=== PATIENT | male | born 1940 | race Caucasian/White ===

== ENCOUNTER → 2021-03-31 14:59 | Outpatient (CLI) | payer OTHER, SELFPAY ==
[2021-03-31 16:07] LABS: Add Manual Diff / Slide Review NO; Basophils Absolute Auto 100 /uL (0-100); Basophils Percent Auto 0.8 % (0-2); Eosinophils Absolute Auto 200 /uL (0-450); Eosinophils Percent Auto 3.1 % (2-4); Hematocrit 45.5 % (41-53); Hemoglobin 15.2 g/dL (13.5-17.5); Lymphocytes Absolute Auto 1500 /uL (1100-4500); Lymphocytes Percent Auto 22.7 % (25-40); Mean Corpuscular HGB Conc 33.3 % (30-36); Mean Corpuscular Hemoglobin 31.6 PG (26-34); Mean Corpuscular Volume 94.9 fL (80-100); Monocytes Absolute Auto 700 /uL (0-900); Monocytes Percent Auto 10.1 % (3-14); Neutrophils Absolute Auto 4100 /uL (1500-7000); Neutrophils Percent Auto 63.3 % (50-75); Platelet Count 149 X10^3/uL (150-400); Red Cell Distribution Width 15.3 % (11.6-14.8); White Blood Cell Count 6.5 X10^3/uL (4.5-11.0)
[2021-03-31 16:11] LABS: INR 1.9 (0.9-1.3); Prothrombin Time 21.3 SECONDS (10.1-12.7)
[2021-03-31 16:13] LABS: PTT Partial Thromboplastin Tim 48 SECONDS (26.4-36.2)
[2021-03-31 16:20] LABS: BUN Creatinine Ratio 15.4 (6-22); Blood Urea Nitrogen 20 mg/dL (9-20); Calcium 8.7 mg/dL (8.4-10.2); Carbon Dioxide 24 mmol/L (22-32); Chloride 109 mmol/L (98-107); Estimated Glomerular Filt Rate 53.4 mL/min (>60); Glucose 93 mg/dL (80-110); HEMOLYSIS < 15 (0-50); Potassium 4.3 mmol/L (3.4-5.1); Sodium 141 mmol/L (137-145)
[2021-03-31 16:21] LABS: Hemoglobin A1C% w Est Avg Glu 5.7 % (4.0-6.0)
[2021-03-31 18:32] LABS: Appearance Urine UA SL CLOUDY; Bilirubin Urine UA NEGATIVE (NEGATIVE); Color Urine UA YELLOW; Glucose Urine UA NEGATIVE (Negative); Ketones Urine UA NEGATIVE (NEGATIVE); Leukocyte Esterase Urine UA 2+ (NEGATIVE); Nitrite Urine UA NEGATIVE (Negative); Occult Blood Urine UA 1+ (Negative); Protein Urine UA TRACE (Negative); Urobilinogen Urine UA 0.2 E.U./dL (0.2)
[2021-03-31 18:47] LABS: Bacteria Urine Few (2-10); Culture Indicated Urine Specimen Cultured; Mucus Urine 2+ (Negative); RBC Urine 0-1/HPF (0-5/HPF); Squamous Epithelial Cell Urine 1-5 /HPF (0-5/HPF); Transitional Epi Cells Urine 5-10/HPF (0-5/HPF); WBC Urine 10-30/HPF (0-5/HPF)
== END ==
PROVIDERS: PCP Internal Medicine; Referring Provider Orthopaedic Surgery; Visit Provider Orthopaedic Surgery
DX: Z01.818 Encounter for other preprocedural examination (principal); I10 Essential (primary) hypertension; Z51.81 Encounter for therapeutic drug level monitoring; R73.9 Hyperglycemia, unspecified; Z01.812 Encounter for preprocedural laboratory examination; N39.0 Urinary tract infection, site not specified
CPT/HCPCS: 36415; 80048; 81001; 83036; 85025; 85610; 85730; 87077; 87086; 87147; 93005

== ENCOUNTER → 2021-04-23 09:38 | Outpatient (CLI) | payer OTHER, SELFPAY ==
[2021-04-23 11:19] LABS: Alanine Aminotransferase 15 IU/L (<50); Albumin 3.8 g/dL (3.5-5.0); Albumin Globulin Ratio 1.4 (1.0-2.8); Alkaline Phosphatase 80 U/L (38-126); Aspartate Aminotransferase 21 IU/L (17-59); BUN Creatinine Ratio 11.3 (6-22); Bilirubin Total 0.6 mg/dL (0.2-1.3); Blood Urea Nitrogen 16 mg/dL (9-20); Calcium 8.5 mg/dL (8.4-10.2); Carbon Dioxide 27 mmol/L (22-32); Chloride 108 mmol/L (98-107); Estimated Glomerular Filt Rate 48.2 mL/min (>60); Globulin 2.7 g/dL (1.7-4.1); Glucose 102 mg/dL (80-110); HEMOLYSIS < 15 (0-50); Magnesium 2.2 mg/dL (1.6-2.3); Sodium 140 mmol/L (137-145); Total Protein 6.5 g/dL (6.3-8.2)
[2021-04-23 11:25] LABS: Potassium 4.4 mmol/L (3.4-5.1)
[2021-04-25 12:36] LABS: Cholesterol, Total 114 mg/dL (100-199); HDL-Cholesterol 45 mg/dL (>39); HDL-Particle (Total) 28.1 umol/L (>=30.5); LDL Particle 813 nmol/L (<1000); LDL Size 20.5 nm (>20.5); LDL-Cholsterol 55 mg/dL (0-99); LP-IR Score 50 (<=45); Small LDL- Particle 439 nmol/L (<=527); Triglycerides 64 mg/dL (0-149)
== END ==
PROVIDERS: PCP Internal Medicine; Visit Provider Specialist
DX: E78.2 Mixed hyperlipidemia (principal); I48.19 Other persistent atrial fibrillation
CPT/HCPCS: 36415; 80053; 80061; 83704; 83735

== ENCOUNTER → 2021-06-11 08:59 | Outpatient (CLI) | payer OTHER, MEDICAID, SELFPAY ==
[2021-06-11 11:22] LABS: COVID19 -Nasal RAPID Negative (Negative)
--- NOTE | 2021-06-11 18:22 | DI.NM.S_ITS ---
DATE OF SERVICE: 06/11/2021 PROCEDURE PERFORMED: Pharmacological perfusion study. INDICATIONS: Preop evaluation with underlying AFib, CAD, diabetes mellitus, hypertension. RADIOPHARMACEUTICAL: 24.8 millicurie technetium-99m Myoview IV was injected at stress and 12.0 millicurie technetium-99m Myoview IV was injected at rest. CARDIAC STRESS: The patient underwent IV Lexiscan perfusion study under the supervision of an attending staff, as per standard protocol. He remained hemodynamically stable. Baseline blood pressure was 122/70 and heart rate 66 with underlying rhythm AFib with right bundle branch block. During stress, no convincing new ischemic changes seen. The patient remained in AFib and right bundle branch block. No significant new arrhythmias, other than occasional PVCs. No anginal symptoms. RAW DATA: There is increased subdiaphragmatic activity. Gut shadow seen near the inferior border of the heart. The patient's weight is 251 pounds. GATED STUDY: Resting LV ejection fraction is 55 percent and stress LV ejection fraction is 57 percent without any significant wall motion abnormalities. Resting end-diastolic volume 155 mL. TID ratio 1.03, which is within normal limits. Lung/heart ratio 0.38, which is within normal limits. MYOCARDIAL PERFUSION: Please note, there are no stress prone images. Stress supine and resting supine images were compared to each other. There appears to be predominantly fixed, moderate size, moderate to severely decreased perfusion of inferior wall extending into the inferoapex, as well as basal inferolateral wall without any significant ischemic burden. CONCLUSION: 1. No obvious reversible ischemia. 2. Predominantly fixed, moderate size, moderate to severely decreased perfusion of inferior wall extending into the inferoapex, as well as basal inferolateral wall. There are no stress prone images. In absence of prone images, it is difficult to distinguish myocardial infarction versus tissue attenuation artifact. However, the patient's weight is 251 pounds. There is increased subdiaphragmatic activity, as well as gut shadow seen near the inferior border of the heart. Inferior wall is moving well. It goes against the diagnosis of previous transmural myocardial infarction. This could be due to diaphragmatic tissue attenuation artifact however one cannot rule out the possibility of nontransmural myocardial infarction. In absence of reversible ischemia, preserved left ventricular function, overall low-risk myocardial perfusion scan. Correlate clinically. John Damico - 3D MODELER/fn/clara doc#: [id number]/job#: [id number] dd: 06/11/2021 17:26:00 dt: 06/11/2021 18:12:00 DICTATING MD/COPIES TO: Bon Lemus MD COPIES MNE: FABIAN;
== END ==
PROVIDERS: PCP Internal Medicine; Referring Provider Physician Assistant Medical; Visit Provider Specialist
DX: I25.10 Atherosclerotic heart disease of native coronary artery without angina pectoris (principal); Z20.822 Contact with and (suspected) exposure to COVID-19; I48.91 Unspecified atrial fibrillation; E11.9 Type 2 diabetes mellitus without complications; I10 Essential (primary) hypertension
CPT/HCPCS: 78452; 87635; 93017; A9502; J2785

== ENCOUNTER → 2021-07-21 10:45 | Outpatient (CLI) | payer OTHER, SELFPAY ==
[2021-07-21 14:48] LABS: COVID19 -Nasal RAPID Negative (Negative)
== END ==
PROVIDERS: PCP Internal Medicine; Referring Provider Physician Assistant; Visit Provider Physician Assistant
DX: Z01.812 Encounter for preprocedural laboratory examination (principal); Z20.822 Contact with and (suspected) exposure to COVID-19
CPT/HCPCS: 87635

== ENCOUNTER 2021-07-24 08:39 | Observation (INO) | payer OTHER, MEDICAID, SELFPAY ==
[2021-07-18 10:47] VITALS: BMI 34.9
[2021-07-22] VITALS (22 sets, daily range): BP systolic 84–159; BP diastolic 52–99; PULSE 79–107; RESP 14–19; TEMP 36.1–37.1; O2SAT 19–99; BMI 31.6
[2021-07-22] MEDS: LACTATED RINGERS 1,000 ML 42 ML IV ×2 (07:15→08:43)
--- NOTE | 2021-07-22 07:33 | DI.RAD.S_ITS ---
PROCEDURE: XR HIP W PEL IF DONE RT 2V INDICATIONS: right total hip postop prosthesis placement TECHNIQUE: AP pelvis and lateral view of the right hip acquired. COMPARISON: None. FINDINGS: Bones: Patient is status post right hip arthroplasty, with hardware components in expected positions. The hip joint appears congruent. The visualized bony structures appear intact. Soft tissues: Overlying postoperative changes are noted. No suspicious soft tissue densities. IMPRESSION: Postop changes from right total hip arthroplasty with anatomic right hip alignment. Dictated by: Leo Miranda M.D. on 07/22/2021 at 11:39 Approved by: Leo Miranda M.D. on 07/22/2021 at 11:39
[2021-07-22] MEDS: PREGABALIN 75 MG CAPSULE PO (07:42)
[2021-07-22] MEDS: CELECOXIB 200 MG CAPSULE PO (07:42)
[2021-07-22] MEDS: ACETAMINOPHEN 325 MG TABLET 975 MG PO (07:43)
--- NOTE | 2021-07-22 07:48 | PM.PREOP ---
Pre-operative Note COVID-19 COVID-19 status: Negative Interval Note History & Physical reviewed/Exam performed by Physician: Yes Changes to H&P: No
--- NOTE | 2021-07-22 07:49 | PM.OP.1 ---
Operative Date/Time/Diagnoses Date of procedure: 07/22/21 Time of procedure: 08:00 Pre-op diagnosis: right hip OA Post-op diagnosis: same Procedure & Clinicians Procedure: right total hip arthroplasty posterior approach Same procedure as scheduled: Yes Indications: The patient has had progressively worsening right hip pain with radiographic changes consistent with arthritis. Non-operative management has failed and the patient has requested total hip replacement. The risks, benefits and alternatives to surgery were discussed with the patient prior to proceeding. Risks discussed included, but were not limited to, failure to relieve pain, leg length discrepancy, dislocation, stiffness, infection, nerve damage, deep venous thrombosis, pulmonary embolism, stroke, coma, heart attack, permanent paralysis and , as well as the potential need for eventual revision of the prosthetic. Surgeon: Janette Sotelo Taxi Proprietor: Divya Hull Anesthesia Type: General Operative Notes Findings: Severe right hip osteoarthritis, good stability, adequate bone Closure Type: primary Specimen(s): none sent Prosthetic devices, grafts, tissues, transplants, or devices: Sotelo and Nephew 60 mm R3 cup, +0 40 mm head, size 13 standard offset anthology, neutral poly liner Applied: drain(s) Estimated Blood Loss (mL): 250 Blood products transfused: none Procedure in detail: The patient was seen in the pre-operative area, where the patient identified the right hip as the operative site and this was marked with my initials. The patient received pre-operative antibiotics and was taken to the operating room and placed on the operative table in the left lateral decubitus position after satisfactory anesthesia. A multimedia authoring specialist out was performed. The right leg was prepared from the ankle to the iliac crest with ChloroPrep in the usual fashion and draped through sterile drapes. The hip was approached through an approximately 20 cm incision centered over the greater trochanter and curving gently posteriorly as it went proximally. This was carried sharply to the fascia griselda, which was divided and retracted with a self retaining retractor. The trochanteric bursa was excised with care being taken to avoid the sciatic nerve, which was identified and protected throughout the case. The short external rotators were incised and the capsulomuscular flap was raised and tagged for later repair. The hip was dislocated, and a femoral neck osteotomy performed approximately 15 mm above the lesser trochanter. Retractors were placed around the femur. The canal was opened with a box cutting osteotome, followed by a T handled reamer and a lateralizing reamer. The chili pepper broach was then used, followed by sequential broaching until there was good stability of the broach in the femur. Retractors were placed to expose the acetabulum. The labrum and central soft tissues were removed. Reaming was performed initially going up in 2 mm increments, then 1 mm increments until good bite was obtained with an odd sized reamer. The cup 1 mm larger than the last reamer was then inserted using the appropriate anteversion guides. It was further stabilized with a single screw. A trial neutral liner was placed. The broach was placed in the canal. A trial head and neck were then placed and the hip relocated and checked for leg length and stability. An intraoperative film confirmed the component position and no evidence of fracture. The patient was stable in the position of sleep, of squatting, and could be put through a range of motion with 45 degrees internal rotation without dislocation. At 90 degrees flexion, internal rotation to 70 ? was possible before dislocation. This was felt to be satisfactory and the appropriate components were opened, and the trials were removed. The acetabular liner was impacted into position. The final stem was then impacted into the prepared femoral canal. A brief Betadine soak was performed while trialing with head options. The hip was meticulously irrigated with normal saline. Finally the femoral head was impacted onto the stem. The acetabulum was cleared of all material and the hip relocated one final time. The capsulomuscular flap was then repaired to the greater trochanter though an awl hole using the tag sutures. The short external rotators were repaired with a nonabsorbable suture. A deep drain was placed and brought out anteriorly. The fascia griselda was closed with Vicryl. The subcutaneous layer was closed with barbed sutures and SteriStrips. An Aquacel Ag dressing was applied and the patient was taken to recovery having tolerated the procedure well. Complications: none Post-operative Condition: stable Disposition: Acute Care Plan for aftercare: The patient will be maintained on a standard total hip replacement protocol with weight bearing as tolerated and posterior hip precautions. The patient will receive Aspirin and sequential compression devices for DVT prophylaxis. The patient will be discharged home when safe for the home environment.
[2021-07-22] MEDS: VANCOMYCIN 1,000 MG/200 ML PIGGYBACK 200 MG IV (07:51)
[2021-07-22] MEDS: TRANEXAMIC ACID 1,000 MG VIAL 1000 MG INJ ×2 (07:55→09:56)
[2021-07-22] MEDS: CEFAZOLIN 1 GM VIAL 2 GM IV ×3 (07:59→23:34)
--- NOTE | 2021-07-22 08:02 | SUR.PREOP ---
[facility] 0740.
--- NOTE | 2021-07-22 08:30 | SUR.OPER ---
Lateral on padded OR bed. Gel axillary roll. Arms secured on padded armboard with pillow supporting top arm. Padded hip positioner braces x4 - anterior and posterior chest and pelvis. Additional gel pad used anterior pelvis. Gel pad under bottom leg from knee to foot and secured with tape over sheet.
[2021-07-22] MEDS: BUPIVACAINE LIPOSOME 266 MG/20 ML VIAL INJ (08:41)
[2021-07-22] MEDS: BUPIVACAINE 0.25% (PF) 60 ML, EPINEPHrine 0.3 MG INJ (08:42)
--- NOTE | 2021-07-22 10:00 | DI.RAD.S_ITS ---
PROCEDURE: XR PELVIS 1-2V INDICATIONS: INNER OP RT HIP TECHNIQUE: Intra-operative view of the pelvis and hip acquired. COMPARISON: [facility] [place], CR, XR PELVIS WITH BILATERAL LATERAL HIPS, 03/31/2021, 13:31. FINDINGS: Bones: Intraoperative devices prior to placement of arthroplasty prostheses are in expected positions. No fractures or suspicious bony lesions. Soft tissues: Overlying surgical retractors are present, along with other intraoperative changes. IMPRESSION: Expected appearance and alignment of intraoperative prosthetic devices during placement of right hip arthroplasty. Dictated by: Vitaliy Catherine RRA Interpreted: Jana Blum MD on 07/22/2021 at 9:56 Transcribed by: TONYA on 07/22/2021 at 9:57 Approved by: Jana Blum MD, PhD on 07/22/2021 at 10:02
[2021-07-22] MEDS: fentaNYL 100 MCG/2 ML INJ IV ×2 (10:51→11:28)
--- NOTE | 2021-07-22 11:21 | SUR.PHASEI ---
1120-patient had tylenol this am preop. c/o pain rt hip. Spoke with Natalya CAICEDO , new orders placed for po pain medication .
[2021-07-22] MEDS: OXYCODONE IR 5 MG TABLET PO (11:24)
--- NOTE | 2021-07-22 12:13 | SUR.PHASEI ---
PACU 1158*Patient awake,alert,and oriented x 3. vss. meets criteria for transfer to floor. Report called to RN. no nausea. pain down and more toelerable-dozes prn. ice rt hip maintained. vss. ekg AF-patient has history. on 2 lnc oxygen. sats 97-99. Csm RLE wnl,no deficits. Dressing cdi at rt hip,and hemovac drain dressing cdi rt hip, scant drainage in tubing only. to floor with belongings bags,walker,shoes, and personal rolling suitcase to room with patient. no family present. 1200-to room by bed on 2 lnc w/belongings. 1208-Bedside Handoff with Shaila FRASER . side rails up. bed in low position. call light at side. bed locked.
[2021-07-22] MEDS: LACTATED RINGERS 1,000 ML 125 ML IV ×2 (12:17→21:25)
[2021-07-22] MEDS: BACLOFEN 10 MG TABLET PO (12:38)
[2021-07-22] MEDS: ALBUTEROL 2.5 MG/3 ML NEB (ADULT) INH ×3 (13:53→19:04)
[2021-07-22] MEDS: ACETAMINOPHEN 325 MG TABLET 650 MG PO ×2 (14:36→21:11)
[2021-07-22] MEDS: OXYCODONE IR 5 MG TABLET 10 MG PO (14:36)
--- NOTE | 2021-07-22 15:15 | PT.IIE ---
Current Diagnoses Unilateral primary osteoarthritis, right hip (07/22/21) Surgery Performed Operation Date: 07/22/21 07:45 Actual Procedures p Total Hip Arthroplasty(Right) - Janette Sotelo MD Medical History (Last Updated 07/18/21 @ 10:45 by Jayla Patel RN) Afib CAD (coronary artery disease) CHF (congestive heart failure) COPD (chronic obstructive pulmonary disease) Current every day smoker HLD (hyperlipidemia) HTN (hypertension) MICHAELA on CPAP Osteoarthritis Pedal edema PVC's (premature ventricular contractions) RBBB (right bundle branch block) Physical Therapy Inpatient Evaluation/Re-Eval M1 PT/OT-IP Prior Functional Status Start: 07/22/21 16:44 Freq: NEEDED Status: Active Protocol: Document 07/22/21 15:15 AB (Rec: 07/22/21 17:01 AB [email or web address]) Medical Review Prior Functional Status Medical History Reviewed Yes Communication able to make needs known but with confusion Mobility and Gait pt stated that he is modified independent with all mobilities and ambulation using SPC indoors and 4WW for outdoor mobility but occasionally uses a FWW Social History Household Members family Living Arrangements Mobile home Number of Floors (Floors) One Floor Number of Stairs To Enter/Railing? 5 steps R rail to enter Home Environment Standard Height Toilet,Tub/ Shower Home Equipment Front Wheel Walker,Four Wheel Walker,Straight Cane,Shower Seat with Backrest,Hand Held Shower,Hospital Bed,Grab Bars Near Toilet,Grab Bars In Shower Additional Social History Comment pt stated that he lives with his sister and nephew but neither one can assist him: sister has also bad hips and nephew is developementally delayed M2 PT-IP Current Condition Start: 07/22/21 16:44 Freq: NEEDED Status: Active Protocol: Document 07/22/21 15:15 AB (Rec: 07/22/21 17:01 AB [email or web address]) Physical Therapy Current Condition Current Condition Evaluation Date 07/22/21 Treatment Diagnosis s/p R REBEKAH posterior approach; difficulty in walking Onset Date 07/22/21 M3 PT-IP Subjective Start: 07/22/21 16:44 Freq: NEEDED Status: Active Protocol: Document 07/22/21 15:15 AB (Rec: 07/22/21 17:01 AB [email or web address]) Subjective Physical Therapy Visit Type Type Initial Evaluation Visit Start Time 15:15 Visit Stop Time 16:01 Total Visit Minutes 46 Number of PRODUCT CONSULTANT Visits 0 Physical Therapy Visit Comments Patient Comments initially refuse to get up but then agreed afterwards Therapy Pain Assessment Pain When Pain Assessed During Mobility Pain Present Pain Present Pain Reported Location right hip Scale Used moderate pain per pt Pain Behaviors Calling Out,Guarding Pain Management Techniques Distraction,Modification of Treatment,Timing of Activity with Medications M4 PT-IP Mobility and Gait Start: 07/22/21 16:44 Freq: NEEDED Status: Active Protocol: Document 07/22/21 15:15 AB (Rec: 07/22/21 17:01 AB [id number]) PT-Bed Mobility Assessment Supine to Sit Supine to Sit Moderate Assistance,Head of Bed Elevated,Bedrails Sit to Supine Sit to Supine Moderate Assistance,Head of Bed Elevated,Bedrails PT-Transfer Assessment Sit to and From Stand Sit to and from Stand Moderate Assistance,Maximum Assistance,1 Person Assistance ,Use of Upper Extremities Equipment Transfer Assistive Device Gait Belt,Front Wheeled Walker Orthotic/Prosthetic Devices or Brace: No Comments Mobility Comments educated pt on R hip posterior precautions. pt with confusion and unable to recall his precautions. pt completed supine to sit mod A and max cues with HOB elevated and pt used bed rail. pt was able to sit on EOB CGA. completed sit to standmod to max A and max cues. pt is impulsive and cued for safety. pt calling out due to pain with weight bearing on RLE but was able to take side steps towards HOB ~ 2 ft using FWW max A and max cues. completed sit to supine mod to max A and max cues. positioned in bed. call light and table placed within reach. pt stated that her sister/ nephew will not be able to assist him at home and that he also does not have outpt PT scheduled. Gait Assessment Gait Gait Assistance Required: Maximum Assistance,1 Person Assist Distance (Feet) 2 Able to Maintain Weight Bearing Status Yes During Gait Assistive Devices Assistive Device Gait Belt,Front Wheeled Walker Orthotic/Prosthetic Devices or Brace: No Gait Deviations General Gait Pattern Decreased Stride Length, Decreased Feet Clearance Factors Limiting Gait Function Factors Limiting Gait Function Decreased Activity Tolerance, Decreased Strength,Difficulty Following Directions,Limited Range of Motion,Pain,Poor Balance,Poor Safety Awareness Comments Gait Comments pls refer to mobility section for details PT-Balance Assessment Sitting Balance and Reactions Static Sitting Balance Ability Good Dynamic Sitting Balance Ability Fair Standing Balance and Reactions Static Standing Balance Ability Poor Dynamic Standing Balance Ability Poor Device Used FWW M5 PT-IP Objective Assessments Start: 07/22/21 16:44 Freq: NEEDED Status: Active Protocol: Document 07/22/21 15:15 AB (Rec: 07/22/21 17:01 AB [email or web address]) Orientation Orientation/Cognition Level of Alertness Confusional State Orientation Name Safety Awareness Decreased Safety Awareness Memory Description Short Term Impaired Gross Range of Motion Lower Extremity ROM Assessment Within Functional Limits Strength Lower Extremity Strength Assessment Right Impaired Hip 3-/5 Knee 3+/5 Muscle Tone Muscle Tone WNL Yes M6 PT-IP Treatment Start: 07/22/21 16:44 Freq: NEEDED Status: Active Protocol: Document 07/22/21 15:15 AB (Rec: 07/22/21 17:01 AB [email or web address]) Physical Therapy Treatment Education Education Provided Precautions,Weight Bearing Status,Post-Op Packet,Safety M7 PT-IP Assessment and Plan Start: 07/22/21 16:44 Freq: NEEDED Status: Active Protocol: Document 07/22/21 15:15 AB (Rec: 07/22/21 17:01 AB [id number]) PT Summary Assessment and Plan Potential Rehabilitation Potential Fair Status of Condition at Evaluation Evolving Summary Impairments Pain,ROM,Strength,Balance, Coordination,Sensation,Tone, Cognition,Bed Mobility, Transfers,Gait,Activity Tolerance Assessment Summary pt s/o R REBEKAH posterior approach POD 0. pt is impulsive with decrease safety awareness and unable to recall safety precautions. pt requiring max A with mobility at this time and will not have available assistance since family members have their own medical issues and will not be able to assist pt. pt will need SNF rehab to improve mobility independence. Goals Bed Mobility Goal Standby Assistance Transfer Goal Standby Assistance,Front Wheeled Walker Gait Goal Standby Assistance,Front Wheel Walker Gait Distance 150 Other Goals up/down 5 steps R rail SBA Days to Meet Goals 5 Frequency of Treatment Frequency Of Treatment Twice a Day Treatment Plan Physical Therapy Treatment Plan Bed Mobility Training,Transfer Training,Gait Training, Therapeutic Exercise,Balance Retraining,Post Op Education, Discharge Planning,Hot or Cold Pack,Neuromuscular Re-ed, Coordination Retraining,Manual Therapy Precautions Posterior Hip Precautions No Hip Flexion > 90 degrees,No Hip Internal Rotation,No Hip Adduction Weight Bearing Status Weight Bearing Status Weight Bear as Tolerated Allowed Weight Bearing Amount (enter % RLE WBAT or #) (%) Recommendations To Nursing Amount of Assist Needed 2 Person Assist Discharge Recommendations PT Discharge Recommendations SNF Rehab Transportation Needs at Discharge Private Vehicle,Wheelchair/ Cabulance
--- NOTE | 2021-07-22 16:27 | PC.NURSE ---
1230-Patient alert, oriented rates pain 7/10 to right hip, described as burning. Given 10mg oxycodone along with jello and coffee. At 1500 patient up with physical therapy, stood at edge of bed and took some steps. Patient refused to sit in chair at this time. Patient also denies need to void. Last void at 0715 this morning. Bladder scanned at 1630 for 212cc. IVF infusing as ordered. Sats on RA while asleep 88%, placed on 1L O2 sats 96-96%.
[2021-07-22] MEDS: WARFARIN 2 MG TABLET 6 MG PO (16:43)
[2021-07-22] MEDS: SODIUM CHLORIDE 0.9% FLUSH 10 ML IV ×2 (16:44→21:13)
[2021-07-22] MEDS: NICOTINE 21 MG PATCH TOP (18:20)
[2021-07-22] MEDS: BUDESONIDE 0.5 MG/2 ML NEB INH (19:03)
[2021-07-22] MEDS: ASPIRIN EC 81 MG TABLET PO (21:11)
[2021-07-22] MEDS: ATORVASTATIN 20 MG TABLET 10 MG PO (21:12)
[2021-07-22] MEDS: DOCUSATE 100 MG CAPSULE PO (21:12)
[2021-07-22] MEDS: GABAPENTIN 300 MG CAPSULE PO (21:12)
[2021-07-22] MEDS: METOPROLOL IR 25 MG TABLET PO (21:12)
[2021-07-22] MEDS: LATANOPROST 0.005% OPHTH 2.5 ML 1 DROPS EYE-BOTH (21:26)
--- NOTE | 2021-07-22 23:45 | PC.NURSE ---
Patient is alert and oriented. Breath sounds with audible expiratory wheezes as well as auscultated with expiratory wheezes throughout; RA sat is 94%. HR irregular but does have hx of afib and rate is controlled. Denied nausea. BT present and is passing flatus. Voided using urinal; urine is dark ellie. Is able to turn himself in bed. Not out of bed so gait not assessed but evening RN reported he was up to BSC earlier with walker and 1 assist. Aquacel dressing to right hip is CDI; hemovac is intact and compressed. Denied pain. CMS intact bilaterally and able to lift leg well off bed. Wearing bilateral calf SCD's. Fall risk score is high and bed alarm is activated.
[2021-07-23] VITALS (10 sets, daily range): BP systolic 81–119; BP diastolic 55–66; PULSE 60–82; RESP 18–20; TEMP 36.4–37.3; O2SAT 95–99
[2021-07-23] MEDS: LACTATED RINGERS 1,000 ML 125 ML IV (05:42)
[2021-07-23] MEDS: OXYCODONE IR 5 MG TABLET PO (06:35)
[2021-07-23 07:17] LABS: Hematocrit 38.8 % (41-53); Hemoglobin 12.9 g/dL (13.5-17.5)
--- NOTE | 2021-07-23 07:48 | PM.DS.1 ---
History of Present Illness History of Present Illness Date Patient Seen: 07/23/21 Time Patient Seen: 07:48 Chief complaint: Hip pain Narrative: Patient's pain is 4/10. No fever or chills. No nausea or vomiting. Discharge Providers Provider Discharge Date: 07/23/21 Primary care physician: Jp Begum MD Consults: 07/22/21 07:33 Consult to Anesthesiology Routine Comment: Consulting Provider: Anesthesiologist Reason for consultation: Regional block for post operative pain control 07/22/21 07:56 Consult to Respiratory Therapy Evaluate & Treat Comment: Physician Instructions: Evaluate and treat 07/22/21 11:59 Consult to Discharge Planning Routine Comment: Consult to Physical Therapy Evaluate & Treat Comment: Physician Instructions: post op REBEKAH protocol Consult to Respiratory Therapy Evaluate & Treat Comment: Physician Instructions: Evaluate and treat Discharge provider: Ruy Bain PA-C Summary Hospital Course Discharge Diagnosis: right hip OA Hospital Course: right total hip arthroplasty posterior approach Same procedure as scheduled: Yes Indications: The patient has had progressively worsening right hip pain with radiographic changes consistent with arthritis. Non-operative management has failed and the patient has requested total hip replacement. The risks, benefits and alternatives to surgery were discussed with the patient prior to proceeding. Risks discussed included, but were not limited to, failure to relieve pain, leg length discrepancy, dislocation, stiffness, infection, nerve damage, deep venous thrombosis, pulmonary embolism, stroke, coma, heart attack, permanent paralysis and , as well as the potential need for eventual revision of the prosthetic. Surgeon: Janette Sotelo Technical Operations Specialist: Divya Hlul Anesthesia Type: General Operative Notes Findings: Severe right hip osteoarthritis, good stability, adequate bone Closure Type: primary Specimen(s): none sent Prosthetic devices, grafts, tissues, transplants, or devices: Sotelo and Nephew 60 mm R3 cup, +0 40 mm head, size 13 standard offset anthology, neutral poly liner Applied: drain(s) Estimated Blood Loss (mL): 250 Blood products transfused: none Patient admitted to the hospital for the above-mentioned procedure. Patient consented to the same. Patient taken to the operating room on July 22, 2021 underwent right total hip arthroplasty, posterior approach. Patient back in his room recovering well as in stable condition. Patient does have assistance at home. He does have stairs as well. He will work with physical therapy and mobilize, posterior hip precautions discharge home today after physical therapy if safe for home environment. Status at Discharge Cognitive/behavioral status at discharge: at baseline, oriented Functional status at discharge: uses cane/walker Exam Vital Signs (past 8 hours): - 07/23/21 00:10 07/23/21 04:06 Temperature 98.5 F 99 F Pulse Rate 79 76 Respiratory Rate 19 19 Blood Pressure 116/65 110/61 Pulse Oximetry 96 96 Oxygen Delivery Method Room Air Oxygen Flow Rate 0 Narrative Exam Narrative: Pleasant 80-year-old male resting comfortably in bed in no apparent distress. Right hip dressing is Clean, dry, intact.. Motor functions intact distally. Sensation grossly intact to light touch. Const General: cooperative Orientation: alert Objective Labs Result Diagrams: 07/23/21 06:10 Labs: Laboratory Results - last 24 hr 07/23/21 06:10 Hgb 12.9 L Hct 38.8 L PFSH Medical History Afib CAD (coronary artery disease) CHF (congestive heart failure) COPD (chronic obstructive pulmonary disease) Current every day smoker HLD (hyperlipidemia) HTN (hypertension) MICHAELA on CPAP Osteoarthritis Pedal edema PVC's (premature ventricular contractions) RBBB (right bundle branch block) Surgical History History of arthroscopy of right shoulder History of carpal tunnel surgery of left wrist History of total left hip replacement History of total left knee replacement History of total right knee replacement Hx of bilateral cataract extraction Hx of hernia repair Hx of repair of left rotator cuff Status post repair of nerve Social History household members: family Smoking Status: Current every day smoker alcohol intake: former Discharge Assessment & Plan Assessment and Plan Assessment: Progressing as expected status post right total hip arthroplasty, posterior approach Plan of Treatment: Weight-bearing as tolerated Posterior hip precautions Multimodal pain management Discharge home today after physical therapy if safe for home environment. Discharge Plan Discharge Plan Patient Disposition: Home Provider Discharge Comment: Discharge home today after physical therapy if safe for home environment Discharge orders & Medications Discharge Orders: Discharge (Order); Ordered 07/23/21 Ordered By: Ruy Bain Prescriptions: New acetaminophen 325 mg Tablet 650 mg PO TID Qty: 60 0RF nicotine 21 mg/24 hr Patch 24 Hour 21 mg topical DAILY Qty: 30 0RF docusate sodium 100 mg Capsule 100 mg PO BID Qty: 30 0RF oxycodone 5 mg Tablet 5 mg PO Q3HR PRN (Reason: Pain, Moderate (4-6)) Qty: 60 0RF Rx Instructions: 1-2 tabs every 3 hours as needed for pain Continued latanoprost 0.005 % Drops 1 drp OPHTHALMIC (EYE) DIRECTED 0RF fluticasone propion-salmeterol [Advair Diskus] 250-50 mcg/dose Blister With Device 1 inh INHALATION BID 0RF amlodipine 5 mg Tablet 5 mg PO QAM 0RF baclofen 10 mg Tablet 10 mg PO Q8H PRN (Reason: Muscle Spasm) 0RF simvastatin 20 mg Tablet 20 mg PO BEDTIME 0RF albuterol sulfate 90 mcg/actuation Hfa Aerosol Inhaler 2 puff INHALATION Q4-6H PRN (Reason: Shortness Of Breath) 0RF lisinopril 40 mg Tablet 40 mg PO DAILY 0RF Label Comments: Takes at bedtime metoprolol tartrate 25 mg Tablet 25 mg PO BID 0RF gabapentin 300 mg Tablet 300 mg PO BID 0RF warfarin 2 mg Tablet 2 mg PO DIRECTED 0RF Label Comments: 8mg M,W,F,Gaitan/6mg rest ibuprofen 200 mg Capsule 400 mg PO Q6H PRN (Reason: Pain) 0RF Spiriva with HandiHaler 18 mcg Capsule, W/Inhalation Device 1 cap INHALATION DAILY 0RF Follow up/Referrals: Jp Begum MD [Primary Care Provider] - Janette Sotelo MD [Physician] - (2 weeks) Diet/Activity/Treatments Diet: Diet as Tolerated Activity: Weight-bearing as tolerated, posterior hip precautions Cold/Heat Therapy: Ice to hip as needed Skin/Wound/Dressing Care Report to your healthcare provider any signs of infection, such as:: chills, fever, increased pain, unusual drainage and unusual redness Dressing: Keep dressing clean and dry Visit Report/Discharge Packet Instructions: DI for Hip Replacement Stand Alone Forms: Surgery Discharge Discharge Data Primary Care Provider: Jp Begum Attending Provider: Janette Sotelo
[2021-07-23] MEDS: ALBUTEROL 2.5 MG/3 ML NEB (ADULT) INH ×3 (09:05→19:54)
[2021-07-23] MEDS: IPRATROPIUM 0.5 MG/2.5 ML NEB INH ×2 (09:05→14:50)
[2021-07-23] MEDS: BUDESONIDE 0.5 MG/2 ML NEB INH ×2 (09:15→19:54)
[2021-07-23] MEDS: ASPIRIN EC 81 MG TABLET PO ×2 (09:46→21:27)
[2021-07-23] MEDS: DOCUSATE 100 MG CAPSULE PO ×2 (09:46→21:27)
[2021-07-23] MEDS: lisinopriL 20 MG TABLET 40 MG PO (09:46)
[2021-07-23] MEDS: METOPROLOL IR 25 MG TABLET PO ×2 (09:46→21:28)
[2021-07-23] MEDS: ACETAMINOPHEN 325 MG TABLET 650 MG PO ×3 (09:46→21:27)
[2021-07-23] MEDS: OXYCODONE IR 5 MG TABLET 10 MG PO ×3 (09:46→16:12)
[2021-07-23] MEDS: GABAPENTIN 300 MG CAPSULE PO ×2 (09:46→21:27)
[2021-07-23] MEDS: IBUPROFEN 400 MG TABLET PO ×2 (09:46→16:12)
[2021-07-23] MEDS: NICOTINE 21 MG PATCH TOP (09:47)
[2021-07-23] MEDS: SODIUM CHLORIDE 0.9% FLUSH 10 ML IV ×2 (09:47→21:28)
[2021-07-23] MEDS: polyethylene glycoL 3350 17 GM POWD.PACK PO (09:47)
[2021-07-23] MEDS: AMLODIPINE 5 MG TABLET PO (09:51)
--- NOTE | 2021-07-23 10:32 | PT.IPTN ---
Current Diagnoses Unilateral primary osteoarthritis, right hip (07/22/21) Surgery Performed Operation Date: 07/22/21 07:45 Actual Procedures p Total Hip Arthroplasty(Right) - Janette Sotelo MD Physical Therapy Treatment Note M2 PT-IP Current Condition Start: 07/22/21 16:44 Freq: NEEDED Status: Active Protocol: Document 07/23/21 10:02 ER (Rec: 07/23/21 12:55 ER [id number]) Physical Therapy Current Condition Current Condition Evaluation Date 07/22/21 Treatment Diagnosis s/p R REBEKAH posterior approach; difficulty in walking Onset Date 07/22/21 M3 PT-IP Subjective Start: 07/22/21 16:44 Freq: NEEDED Status: Active Protocol: Document 07/23/21 10:02 ER (Rec: 07/23/21 12:55 ER [id number]) Subjective Physical Therapy Visit Type Type Treatment Note Visit Start Time 10:02 Visit Stop Time 10:32 Total Visit Minutes 30 Notes HUANG Dick lead treatment and provided education under direct supervision and instruction of STEAM CLEANER Shayla. Number of STEAM CLEANER Visits 1 Physical Therapy Visit Comments Patient Comments Pt. agreeable to PT. Therapy Pain Assessment Pain When Pain Assessed At Rest Pain Present Pain Present Pain Reported Location right hip Intensity 4 Scale Used Numeric (0 - 10) Pain Behaviors Facial Grimacing,Guarding, Wincing Pain Management Techniques Distraction,Modification of Treatment,Timing of Activity with Medications M4 PT-IP Mobility and Gait Start: 07/22/21 16:44 Freq: NEEDED Status: Active Protocol: Document 07/23/21 10:02 ER (Rec: 07/23/21 12:55 ER [id number]) PT-Bed Mobility Assessment Supine to Sit Supine to Sit Contact Guard Assistance,Head of Bed Elevated,Bedrails Scooting Scooting to Edge of Bed Contact Guard Assistance PT-Transfer Assessment Sit to and From Stand Sit to and from Stand Maximum Assistance,1 Person Assistance,Use of Upper Extremities Equipment Transfer Assistive Device Gait Belt,Front Wheeled Walker Orthotic/Prosthetic Devices or Brace: No Transfers Transfer Destination Chair Transfer Technique Stand Step Pivot Transfer Ability Level of Assist Moderate Assistance,Maximum Assistance,1 Person Assistance ,Use of Upper Extremities Comments Mobility Comments Pt. in bed with HOB elevated, pillow between legs upon arrival, and bed alarm on. Vitals: Supine: BP 132/63, HR 72, SaO2 100%; EOB: BP 128/ 67 , HR 87, SaO2 98%; Post mobility seated: BP 126/69, HR 82), SaO2 98%. Pt. performed ankle pumps and heel slides in bed. Pt. sup>sit CGA, HOB elevated, and UE support. Scoot to EOB using UE support CGA. Sit>stand using FWW and UE support with MaxA+1 plus cues for R foot placed forward , weight bearing through legs> arms. Pt. SOB on standing, required 30 sec in standing to recover. Pt. standing pivot to chair using FWW and mod- maxA+1 and cues for side- stepping foot positioning, tall posture. Pt. stand>sit using FWW and UE, maxA+1 and cues for slow descent and RLE knee extension and foot placement. Pt. plopped to chair and was SOB. Required 1 min recovery. Pt. sit>stand using FWW, UE support, maxA+1 and cures for RLE foot placement in front of L foot, pushing down through chair with UE, tall posture upon standing. PT. SOB upon standing. Required 2 min recovery. Pt. ambulated 10' x2 using FWW and Mod+1A and cues for tall posture. SOB between segments and 1 min recovery in standing. Pt. stand>sit using FWW and UE support, maxA +1 and cues for slow descent, foot placement, reaching back with hands. Quality of descent improved over first stand>sit . Pt. SOB post descent, requiring 1 min recovery. Pt. left in chair with LE elevated and chair alarm on. Call light and all needs within reach. Gait Assessment Gait Gait Assistance Required: Moderate Assistance,1 Person Assist Distance (Feet) 10 Able to Maintain Weight Bearing Status Yes During Gait Assistive Devices Assistive Device Gait Belt,Front Wheeled Walker Orthotic/Prosthetic Devices or Brace: No Gait Deviations General Gait Pattern Decreased Stride Length, Decreased Feet Clearance,Step- to Gait Factors Limiting Gait Function Factors Limiting Gait Function Decreased Activity Tolerance, Decreased Strength,Difficulty Following Directions,Limited Range of Motion,Pain,Poor Balance,Poor Safety Awareness Comments Gait Comments see mobility for details PT-Balance Assessment Sitting Balance and Reactions Static Sitting Balance Ability Good Dynamic Sitting Balance Ability Fair Standing Balance and Reactions Static Standing Balance Ability Fair Dynamic Standing Balance Ability Poor Device Used FWW M5 PT-IP Objective Assessments Start: 07/22/21 16:44 Freq: NEEDED Status: Active Protocol: Document 07/22/21 15:15 AB (Rec: 07/22/21 17:01 AB [id number]) Orientation Orientation/Cognition Level of Alertness Confusional State Orientation Name Safety Awareness Decreased Safety Awareness Memory Description Short Term Impaired Gross Range of Motion Lower Extremity ROM Assessment Within Functional Limits Strength Lower Extremity Strength Assessment Right Impaired Hip 3-/5 Knee 3+/5 Muscle Tone Muscle Tone WNL Yes M6 PT-IP Treatment Start: 07/22/21 16:44 Freq: NEEDED Status: Active Protocol: Document 07/23/21 10:02 ER (Rec: 07/23/21 12:55 ER [id number]) Physical Therapy Treatment Exercises Exercises Ankle Pumps,Heel Slides Education Education Provided Precautions,Weight Bearing Status,Post-Op Packet,Safety M7 PT-IP Assessment and Plan Start: 07/22/21 16:44 Freq: NEEDED Status: Active Protocol: Document 07/23/21 10:02 ER (Rec: 07/23/21 12:55 ER [id number]) PT Summary Assessment and Plan Potential Rehabilitation Potential Fair Status of Condition at Evaluation Evolving Summary Impairments Pain,ROM,Strength,Balance, Coordination,Sensation,Tone, Cognition,Bed Mobility, Transfers,Gait,Activity Tolerance Progress Towards Goals Progressing Toward Goals,Slow Progress due to Pain,Slow Progress due to Activity Tolerance Assessment Summary Pt sit<>stand using FWW and UE support, ModA+1 for stability and safety. Pt. ambulated using FWW and ModA+1 for balance, and stability while turning, with cues for upright posture. Pt. distractable and mod impulsive, but eager to participate today. Pt. became SOB during transfers and ambulation ~every 10 feet. Unable to assess ability to ascend/descend steps due to SOB, lack of endurance/ strength. Pt. will benefit from continued PT to improve endurance, gait, functional mobility, and strength. Reccommend SNF rehab to improve mobility and independence. Goals Bed Mobility Goal Standby Assistance Transfer Goal Standby Assistance,Front Wheeled Walker Gait Goal Standby Assistance,Front Wheel Walker Gait Distance 150 Other Goals up/down 5 steps R rail SBA Days to Meet Goals 5 Frequency of Treatment Frequency Of Treatment Twice a Day Treatment Plan Physical Therapy Treatment Plan Bed Mobility Training,Transfer Training,Gait Training, Therapeutic Exercise,Balance Retraining,Post Op Education, Discharge Planning,Hot or Cold Pack,Neuromuscular Re-ed, Coordination Retraining,Manual Therapy Other Recommendations and Next Treatment Continue with transfer Focus training, and increase distance of ambulation, stair training safe. Precautions Posterior Hip Precautions No Hip Flexion > 90 degrees,No Hip Internal Rotation,No Hip Adduction Weight Bearing Status Weight Bearing Status Weight Bear as Tolerated Allowed Weight Bearing Amount (enter % RLE WBAT or #) (%) Recommendations To Nursing Amount of Assist Needed 1 Person Assist Discharge Recommendations PT Discharge Recommendations SNF Rehab Transportation Needs at Discharge Private Vehicle,Wheelchair/ Cabulance
--- NOTE | 2021-07-23 11:20 | CM.DPNOTE ---
Per Milly, faxed referral packet to [facility]; and emailed [facility] & Kayce Hernandez and received fax confirm. on all. Carri Rangel CM Asst.
--- NOTE | 2021-07-23 14:27 | CM.IDA ---
Initial DCP Assessment Note Pt is a 80 yo male, resident of [place], POD#1 from right hip repair by Dr Sotelo. PCP: Jp Begum Payer: [employer] MANZANO/MICHELLE Met w/patient, introduced role. Patient working w/therapy team, states his sister is functionally disabled and his nephew is developmentally delayed and they cannot assist him upon DC. Patient had planned to DC to SNF post operatively. PT currently recommending SNF. Patient has no SNF preference at this time. Faxed referrals started this morning, patient understands that a SNF bed will need to be secured in addition to the [facility] auth. Spoke w/Jenni at [facility], she completed a bedside assessment this morning; Jenni can accept patient and will begin [employer] auth this afternoon. Attempted to get in contact w/patient's sister multiple times today, listed contact is wrong number. Also attempted son Ryan and patient's home number, no avail. Plan: Anticipate DC to SNF once auth is secured from [facility] [facility]les Discharge Planning/Care Management CM Discharge Assessment Start: 07/23/21 13:45 Freq: Status: Active Protocol: Document 07/23/21 13:45 DANIEL (Rec: 07/23/21 14:22 [id number]) Discharge Planning Assessment Assigned Safety Grooving Machine Operator CALVIN Atkins DPOA/Assigned Designee Name Nadira Ambriz, [place] Contact Information Contact TBD, number in chart is wrong number Advance Directives? No History Provided By Patient Prior Living Arrangements Mobile home Household Members family Type of transportation used prior to Relies on Others admit Independent with ADL's Yes: Mod indp w/some confusion Is patient alert and oriented? Yes Patient/Family Preference Residential Facility Barriers to Discharge Yes Comment Patient lives w/sister, who is physically disbaled, and nephew, who is developmentally delayed Transportation Arrangement TBD Referrals Initiated Residential Medicare Choice List Provided Yes SNF/HH Preference No preference, wants rehab
--- NOTE | 2021-07-23 15:50 | PT.IPTN ---
Current Diagnoses Unilateral primary osteoarthritis, right hip (07/22/21) Surgery Performed Operation Date: 07/22/21 07:45 Actual Procedures p Total Hip Arthroplasty(Right) - Janette Sotelo MD Physical Therapy Treatment Note M2 PT-IP Current Condition Start: 07/22/21 16:44 Freq: NEEDED Status: Active Protocol: Document 07/23/21 15:14 SP (Rec: 07/23/21 17:21 SP [id number]) Physical Therapy Current Condition Current Condition Evaluation Date 07/22/21 Treatment Diagnosis s/p R REBEKAH posterior approach; difficulty in walking Onset Date 07/22/21 M3 PT-IP Subjective Start: 07/22/21 16:44 Freq: NEEDED Status: Active Protocol: Document 07/23/21 15:14 SP (Rec: 07/23/21 17:21 SP [id number]) Subjective Physical Therapy Visit Type Type Treatment Note Visit Start Time 15:14 Visit Stop Time 15:50 Total Visit Minutes 36 Notes HUANG Dick assisted as 2nd person when needed while being directly supervised and instructed throughout tx by TONNY Mcguire Number of STEEL ERECTOR Visits 2 Physical Therapy Visit Comments Patient Comments Pt stated just got back to bed but agreeable to PT. Patient Goals Go to SNF to get strong before returning home due to no one at home able to give physical assist. Therapy Pain Assessment Pain When Pain Assessed At Rest Pain Present Pain Present Pain Reported Location right hip Scale Used earl R hip at rest, moderate pain with mobility not quantified. Pain Behaviors Facial Grimacing,Guarding, Wincing Pain Management Techniques Distraction,Modification of Treatment,Re-positioning, Timing of Activity with Medications M4 PT-IP Mobility and Gait Start: 07/22/21 16:44 Freq: NEEDED Status: Active Protocol: Document 07/23/21 15:14 SP (Rec: 07/23/21 17:21 SP [id number]) PT-Bed Mobility Assessment Supine to Sit Supine to Sit Contact Guard Assistance,Head of Bed Elevated,Bedrails Sit to Supine Sit to Supine Contact Guard Assistance, Bedrails Scooting Scooting to Edge of Bed Contact Guard Assistance PT-Transfer Assessment Sit to and From Stand Sit to and from Stand Moderate Assistance,1 Person Assistance,Use of Upper Extremities Equipment Transfer Assistive Device Gait Belt,Front Wheeled Walker Orthotic/Prosthetic Devices or Brace: No Transfers Transfer Destination Bed,Wheelchair Transfer Technique pt ambulated using FWW Transfer Ability Level of Assist Moderate Assistance,1 Person Assistance,Use of Upper Extremities Comments Mobility Comments Pt inclined in bed when arrived. Completed elevated supine>sit and scoot to EOB CGA with use of gait belt for self assist, RLE to EOB while other UE WB on bed. SIt>stand Mod A x1 with cues for RLE reposition out front and push from bed 1 UE. Ambulated further distance into hallway aprox 75 ft using FWW CG- Min A w/ wc follow secondary to moderate UE WB on FWW but improved receiprocal gait patterning. Pt required seated rest at stairs into wc Min A for slow descent. Sit>Stand from wc Mod A and heavy BUE on arms rests, Pt pushed fWW out to side stating I usually use my SPC to step attempted gait 2 ft w/ SPC but LOB Mod A for recovery due to RLE unstable during LLE advancement. Provided education and FWW repositioning and used to bottom step. Completed ascend/ descend 3 steps L HR and R UE w/ SPC, Mod A x1 for trunk stability and 2nd person for stabilizing SPC step to patterning with mod cues for proper patterning. Pt unable to complete 2nd set of 3 for assimulation entrance to [facility] (5 step to enter) due to increased pain and instabiltiy of RLE, requested to sit back in w/c Min A using FWW. Pt wheeled back to room, SPT to bed Min A with cuing for body positioning fully with FWW. stand>sit>supine Min A x1.Pt had call light and all needs in reach before left and bed alarmed. Notified nursing Min- Mod A x1. Gait Assessment Gait Gait Assistance Required: Minimum Assistance,1 Person Assist Distance (Feet) 75 Able to Maintain Weight Bearing Status Yes During Gait Assistive Devices Assistive Device Gait Belt,Front Wheeled Walker Orthotic/Prosthetic Devices or Brace: No Gait Deviations General Gait Pattern Antalgic,Decreased Stride Length,Decreased Feet Clearance,Flexed Trunk,Step-to Gait Factors Limiting Gait Function Factors Limiting Gait Function Decreased Activity Tolerance, Decreased Strength,Limited Range of Motion,Pain,Poor Balance,Poor Safety Awareness, Respiratory Distress Comments Gait Comments see mobility details Stair Climbing Assessment Evaluation Level of Assist On Stairs Minimal Assistance,Moderate Assistance,2 Person Assistance Devices Stair Climbing Assistive Devices Straight Cane,Left Railing Technique/Endurance Stair Climbing Direction Ascend and Descend Stair Climbing Technique Step to Step Number of Steps Climbed 3 Stair Climbing Set # Repetitions (reps) 1 Comments Stair Climbing Comments Completed 3 of 5 steps has to do to enter mobile home min- mod a x2 of which does have this physical assist at home. PT-Balance Assessment Sitting Balance and Reactions Static Sitting Balance Ability Good Dynamic Sitting Balance Ability Good Standing Balance and Reactions Static Standing Balance Ability Fair Dynamic Standing Balance Ability Fair Device Used FWW M5 PT-IP Objective Assessments Start: 07/22/21 16:44 Freq: NEEDED Status: Active Protocol: Document 07/22/21 15:15 AB (Rec: 07/22/21 17:01 AB [id number]) Orientation Orientation/Cognition Level of Alertness Confusional State Orientation Name Safety Awareness Decreased Safety Awareness Memory Description Short Term Impaired Gross Range of Motion Lower Extremity ROM Assessment Within Functional Limits Strength Lower Extremity Strength Assessment Right Impaired Hip 3-/5 Knee 3+/5 Muscle Tone Muscle Tone WNL Yes M6 PT-IP Treatment Start: 07/22/21 16:44 Freq: NEEDED Status: Active Protocol: Document 07/23/21 15:14 SP (Rec: 07/23/21 17:21 SP [id number]) Physical Therapy Treatment Education Education Provided Precautions,Weight Bearing Status,Post-Op Packet,Safety M7 PT-IP Assessment and Plan Start: 07/22/21 16:44 Freq: NEEDED Status: Active Protocol: Document 07/23/21 15:14 SP (Rec: 07/23/21 17:21 SP [id number]) PT Summary Assessment and Plan Potential Rehabilitation Potential Fair Status of Condition at Evaluation Evolving Summary Impairments Pain,ROM,Strength,Balance, Coordination,Sensation,Tone, Cognition,Bed Mobility, Transfers,Gait,Activity Tolerance Progress Towards Goals Progressing Toward Goals,Slow Progress due to Pain,Slow Progress due to Activity Tolerance Assessment Summary Pt requires CGA bed mob, Min- Mod A sit<>stand, CG-MIn for gait using FWW, Min, Mod Ax2 for stair mgt L HR and SPC. Pt requires physical assist for all mobility of which doesn't have at home to support him. REcommending SNF to improve strength toward functional independence to allow for safe DC home. Goals Bed Mobility Goal Standby Assistance Transfer Goal Standby Assistance,Front Wheeled Walker Gait Goal Standby Assistance,Front Wheel Walker Gait Distance 150 Other Goals up/down 5 steps R rail SBA Days to Meet Goals 5 Frequency of Treatment Frequency Of Treatment Twice a Day Treatment Plan Physical Therapy Treatment Plan Bed Mobility Training,Transfer Training,Gait Training, Therapeutic Exercise,Balance Retraining,Post Op Education, Discharge Planning,Hot or Cold Pack,Neuromuscular Re-ed, Coordination Retraining,Manual Therapy Other Recommendations and Next Treatment Continue with transfer Focus training, and increase distance of ambulation, stair training 5 stairs prior to DC home. Precautions Posterior Hip Precautions No Hip Flexion > 90 degrees,No Hip Internal Rotation,No Hip Adduction Other Precautions Good recall 3/3 precautions Weight Bearing Status Weight Bearing Status Weight Bear as Tolerated Allowed Weight Bearing Amount (enter % RLE WBAT or #) (%) Recommendations To Nursing Amount of Assist Needed 1 Person Assist Discharge Recommendations PT Discharge Recommendations SNF Rehab Transportation Needs at Discharge Private Vehicle,Wheelchair/ Cabulance
[2021-07-23] MEDS: WARFARIN 2 MG TABLET 8 MG PO (16:12)
--- NOTE | 2021-07-23 18:56 | PC.NURSE ---
Day shift: Pt has been calm and cooperative with care today. Makes needs known proper. Denies any nausea. He does c/o right hip pain and medicated per NOV. Pain has been well controlled. Dressing remains CDI and he tolerated ICE. SCD's tolerated as well. OOB w/ PT today. He sat in chair.
[2021-07-23] MEDS: ATORVASTATIN 20 MG TABLET 10 MG PO (21:27)
[2021-07-23] MEDS: LATANOPROST 0.005% OPHTH 2.5 ML 1 DROPS EYE-BOTH (21:28)
--- NOTE | 2021-07-23 22:03 | PC.NURSE ---
Patient is alert and oriented but forgetful at times. Breath sounds again with audible wheezes and auscultated expiratory wheezing throughout. States he is always SOB but not bad. Oxygen per NC at 1L/min with sat of 98%; has hx of sleep apnea. HR irregular; hx of afib. Denies nausea. BT present and is passing flatus. Denies dysuria, frequency or urgency with urination. Is able to turn himself in bed. Gait not assessed at this time. Wearing bilateral calf SCD's. CMS is intact. Aquacel dressing CDI. Hemovac site dressing CDI. Denies pain. Fall risk score is high/patient can be impulsive so bed alarm is activated.
[2021-07-24] VITALS (8 sets, daily range): BP systolic 97–138; BP diastolic 63–80; PULSE 70–99; RESP 18–22; TEMP 36.7–37.2; O2SAT 94–99
--- NOTE | 2021-07-24 07:36 | P.DS_ITS ---
History of Present Illness History of Present Illness Date Patient Seen: 07/24/21 Time Patient Seen: 07:37 Chief complaint: Right hip pain s/p right REBEKAH, posterior Narrative: Please see prior HPI. The patient is complaining of mild right hip pain this morning. He notes he had difficulty with stairs yesterday, therefore we are working on getting him discharged to SNF today. He notes new numbness in his toes. He has a history of low back issues. No fevers, chills, night sweats. Discharge Providers Provider Discharge Date: 07/24/21 Primary care physician: Jp Begum MD Consults: 07/22/21 07:33 Consult to Anesthesiology Routine Comment: Consulting Provider: Anesthesiologist Reason for consultation: Regional block for post operative pain control 07/22/21 07:56 Consult to Respiratory Therapy Evaluate & Treat Comment: Physician Instructions: Evaluate and treat 07/22/21 11:59 Consult to Discharge Planning Routine Comment: Consult to Physical Therapy Evaluate & Treat Comment: Physician Instructions: post op REBEKAH protocol Consult to Respiratory Therapy Evaluate & Treat Comment: Physician Instructions: Evaluate and treat Discharge provider: Divya Hull PA-C Summary Hospital Course Discharge Diagnosis: Right hip osteoarthritis Hospital Course: Date of procedure: 07/22/21 Time of procedure: 08:00 Procedure & Clinicians Procedure: right total hip arthroplasty posterior approach Same procedure as scheduled: Yes Indications: The patient has had progressively worsening right hip pain with radiographic ch anges consistent with arthritis. Non-operative management has failed and the patient has requested total hip replacement. The risks, benefits and alternatives to surgery were discussed with the patient prior to proceeding. Risks discussed included, but were not limited to, failure to relieve pain, leg length discrepancy, dislocation, stiffness, infection, nerve damage, deep venous thrombosis, pulmonary embolism, stroke, coma, heart attack, permanent paralysis and , as well as the potential need for eventual revision of the prosthetic. Surgeon: Janette Sotelo [employer] Director: Divya Hull Anesthesia Type: General Operative Notes Findings: Severe right hip osteoarthritis, good stability, adequate bone Closure Type: primary Specimen(s): none sent Prosthetic devices, grafts, tissues, transplants, or devices: Sotelo and Nephew 60 mm R3 cup, +0 40 mm head, size 13 standard offset anthology, neutral poly liner Applied: drain(s) Estimated Blood Loss (mL): 250 Blood products transfused: none Status at Discharge Cognitive/behavioral status at discharge: oriented Functional status at discharge: uses cane/walker Overall status at discharge: patient is progressing back to baseline Exam Vital Signs (past 8 hours): - 07/24/21 01:28 Temperature 98.9 F Pulse Rate 74 Respiratory Rate 22 Blood Pressure 115/65 Pulse Oximetry 99 Oxygen Delivery Method Nasal Cannula Oxygen Flow Rate 1 Narrative Exam Narrative: 80-year-old male, resting comfortably in bed, no acute distress. Dressing is clean, dry, intact. Bilateral lower extremity motor function is grossly intact. Sensation grossly intact to light touch in bilateral lower extremities. Calves are soft, nontender to palpation. Objective Labs Result Diagrams: 07/23/21 06:10 [facility] Medical History Afib CAD (coronary artery disease) CHF (congestive heart failure) COPD (chronic obstructive pulmonary disease) Current every day smoker HLD (hyperlipidemia) HTN (hypertension) MICHAELA on CPAP Osteoarthritis Pedal edema PVC's (premature ventricular contractions) RBBB (right bundle branch block) Surgical History History of arthroscopy of right shoulder History of carpal tunnel surgery of left wrist History of total left hip replacement History of total left knee replacement History of total right knee replacement Hx of bilateral cataract extraction Hx of hernia repair Hx of repair of left rotator cuff Status post repair of nerve Social History household members: family Smoking Status: Current every day smoker alcohol intake: former Discharge Assessment & Plan Assessment and Plan Assessment: Stable status post right total hip arthroplasty, posterior approach Plan of Treatment: -mobilize with TT. Maintain posterior hip precautions x6 weeks. Weightbearing as tolerated front wheel walker -continue with current pain regimen and DVT prophylaxis -DC to SNF today once cleared by PT Discharge Plan Discharge Plan Patient Disposition: SNF Provider Discharge Comment: Discharge home today after physical therapy if safe for SNF I certify the [facility] care is medically necessary on a continuing basis for any conditions for which he/ she received care during this hospitalization.: Yes The receiving facility has agreed to accept transfer and provide medical treatment.: Yes Discharge orders & Medications Discharge Orders: Discharge (Order); Ordered 11/18/21 Ordered By: Divya Hull Prescriptions: New acetaminophen 325 mg Tablet 650 mg PO TID Qty: 60 0RF nicotine 21 mg/24 hr Patch 24 Hour 21 mg topical DAILY Qty: 30 0RF docusate sodium 100 mg Capsule 100 mg PO BID Qty: 30 0RF oxycodone 5 mg Tablet 5 mg PO Q3HR PRN (Reason: Pain, Moderate (4-6)) Qty: 60 0RF Rx Instructions: 1-2 tabs every 3 hours as needed for pain Continued latanoprost 0.005 % Drops 1 drp OPHTHALMIC (EYE) DIRECTED 0RF fluticasone propion-salmeterol [Advair Diskus] 250-50 mcg/dose Blister With Device 1 inh INHALATION BID 0RF amlodipine 5 mg Tablet 5 mg PO QAM 0RF baclofen 10 mg Tablet 10 mg PO Q8H PRN (Reason: Muscle Spasm) 0RF simvastatin 20 mg Tablet 20 mg PO BEDTIME 0RF albuterol sulfate 90 mcg/actuation Hfa Aerosol Inhaler 2 puff INHALATION Q4-6H PRN (Reason: Shortness Of Breath) 0RF lisinopril 40 mg Tablet 40 mg PO DAILY 0RF Label Comments: Takes at bedtime metoprolol tartrate 25 mg Tablet 25 mg PO BID 0RF gabapentin 300 mg Tablet 300 mg PO BID 0RF warfarin 2 mg Tablet 2 mg PO DIRECTED 0RF Label Comments: 8mg M,W,F,Gaitan/6mg rest ibuprofen 200 mg Capsule 400 mg PO Q6H PRN (Reason: Pain) 0RF Spiriva with HandiHaler 18 mcg Capsule, W/Inhalation Device 1 cap INHALATION DAILY 0RF Follow up/Referrals: Jp Begum MD [Primary Care Provider] - Janette Sotelo MD [Physician] - (2 weeks) Diet/Activity/Treatments Diet: Diet as Tolerated Activity: Weight-bearing as tolerated, posterior hip precautions Cold/Heat Therapy: Ice to hip as needed Skin/Wound/Dressing Care Report to your healthcare provider any signs of infection, such as:: chills, fever, increased pain, unusual drainage and unusual redness Dressing: Keep dressing clean and dry Other wound treatment: Medications: -Aspirin 81mg twice daily x6 weeks to prevent blood clots. -OTC Tylenol 500 mg 1 tablet every 4 hours as needed for pain/fever. Max 6 tablets per day. -Ibuprofen 400 mg 1 tablet every 4 hours as needed for pain/inflammation. Max 2,400 mg per day. -Oxycodone 5 mg take 1-2 tablets every 4 hours as needed for moderate-severe pain (narcotic pain medication). -As needed medications: -Ducolax and /or MiraLax as needed for constipation from narcotic pain medications. -Pepcid AC as needed for stomach upset (usually from aspirin or ibuprofen). Dressing/Wound care: -Keep Aquacell dressing in place until postoperative follow-up office visit. -Okay to shower. Keep wound out of direct water stream. No soaking or submerging until all the scabs fall off (approximately 6 weeks). -Please call the office if dressing becomes wet, soiled, or saturated. Activities: -Maintain posterior hip precautions x6 weeks. -Weight-bearing as tolerated. Use front wheeled walker, and progress to cane when safe. -Continue with home exercises as directed by your physical therapist. -Elevate ?toes above the nose if you have significant swelling in your lower leg. (A wedge pillow is easiest.) -Ice your incision as needed for pain/inflammation/swelling. Protect your skin with a folded pillowcase. Follow-up: -Follow-up with your surgeon or PA in the office in 10-14 days after surgery. -Follow-up with your surgeon 6 weeks postoperatively. Call the office if you have chest pain, shortness of breath, significant swelling that will not resolve with elevating, fever over 101?, significantly worsening pain. [facility]: [phone] [facility] Reason for rehabilitation: Post-operative therapy Rehab type: Physical therapy and Occupational therapy Visit Report/Discharge Packet Instructions: DI for Hip Replacement Stand Alone Forms: Surgery Discharge Discharge Data Primary Care Provider: Jp Begum Attending Provider: Janette Sotelo
[2021-07-24] MEDS: ALBUTEROL/IPRATROPIUM 3 ML AMPUL INH ×3 (08:38→19:49)
[2021-07-24] MEDS: BUDESONIDE 0.5 MG/2 ML NEB INH ×2 (08:45→19:49)
[2021-07-24] MEDS: polyethylene glycoL 3350 17 GM POWD.PACK PO (08:51)
[2021-07-24] MEDS: IBUPROFEN 400 MG TABLET PO ×2 (08:52→14:12)
[2021-07-24] MEDS: ACETAMINOPHEN 325 MG TABLET 650 MG PO ×3 (08:52→20:50)
[2021-07-24] MEDS: NICOTINE 21 MG PATCH TOP (08:52)
[2021-07-24] MEDS: DOCUSATE 100 MG CAPSULE PO ×2 (08:52→20:50)
[2021-07-24] MEDS: ASPIRIN EC 81 MG TABLET PO ×2 (08:53→20:50)
[2021-07-24] MEDS: lisinopriL 20 MG TABLET 40 MG PO (08:53)
[2021-07-24] MEDS: GABAPENTIN 300 MG CAPSULE PO ×2 (08:53→20:51)
[2021-07-24] MEDS: METOPROLOL IR 25 MG TABLET PO ×2 (08:53→20:51)
[2021-07-24] MEDS: AMLODIPINE 5 MG TABLET PO (08:53)
[2021-07-24] MEDS: OXYCODONE IR 5 MG TABLET 10 MG PO (08:54)
[2021-07-24] MEDS: SODIUM CHLORIDE 0.9% FLUSH 10 ML IV ×2 (08:55→22:43)
--- NOTE | 2021-07-24 10:28 | PT.IPTN ---
Current Diagnoses Unilateral primary osteoarthritis, right hip (07/24/21) Surgery Performed Operation Date: 07/22/21 07:45 Actual Procedures p Total Hip Arthroplasty(Right) - Janette Sotelo MD Physical Therapy Treatment Note M2 PT-IP Current Condition Start: 07/22/21 16:44 Freq: NEEDED Status: Active Protocol: Document 07/23/21 15:14 SP (Rec: 07/23/21 17:21 SP [id number]) Physical Therapy Current Condition Current Condition Evaluation Date 07/22/21 Treatment Diagnosis s/p R REBEKAH posterior approach; difficulty in walking Onset Date 07/22/21 M3 PT-IP Subjective Start: 07/22/21 16:44 Freq: NEEDED Status: Active Protocol: Document 07/24/21 10:04 KS (Rec: 07/24/21 12:19 KS [id number]) Subjective Physical Therapy Visit Type Type Treatment Note Visit Start Time 10:04 Visit Stop Time 10:28 Total Visit Minutes 24 Notes Pt agreeable to work with therapy. Number of SLURRY TANK OPERATOR Visits 3 Physical Therapy Visit Comments Patient Goals Go to SNF to get strong before returning home due to no one at home able to give physical assist. Therapy Pain Assessment Pain When Pain Assessed At Rest Pain Present Pain Present Pain Reported Location right hip Scale Used not quantified Pain Behaviors Facial Grimacing,Guarding, Wincing Pain Management Techniques Distraction,Modification of Treatment,Re-positioning, Timing of Activity with Medications M4 PT-IP Mobility and Gait Start: 07/22/21 16:44 Freq: NEEDED Status: Active Protocol: Document 07/24/21 10:04 KS (Rec: 07/24/21 12:19 KS [id number]) PT-Bed Mobility Assessment Supine to Sit Supine to Sit Minimal Assistance,1 Person Assistance,Head of Bed Elevated,Bedrails Sit to Supine Sit to Supine Moderate Assistance,1 Person Assistance,Head of Bed Elevated Scooting Scooting to Edge of Bed Contact Guard Assistance PT-Transfer Assessment Sit to and From Stand Sit to and from Stand Moderate Assistance,1 Person Assistance,Use of Upper Extremities Equipment Transfer Assistive Device Gait Belt,Front Wheeled Walker Orthotic/Prosthetic Devices or Brace: No Transfers Transfer Destination Bed Transfer Technique pt ambulated using FWW Transfer Ability Level of Assist Moderate Assistance,1 Person Assistance,Use of Upper Extremities Comments Mobility Comments Pt in bed upon arrival from therapy. Reviwed LE strengthening exercises. Able to recall 1/3 hip precautions (no adduction, no IR). Pt used gait belt for self assist of RL out of bed, but still required Min A. CGA for scooting EOB. Mod A and cues for sit<>stand w/ FWW. Pt then ambulated ~30 ft around room w/ FWW and CGA. Pt demonstrated step to gait, discomfort verbalized when trying step through pattern. No LOB today. Pt expressed fatigue following ambulation and requested to get back into bed. Mod A for sit<>sup for LE guidance. Pt left in bed with alarm and SCDs on and all needs in reach. Gait Assessment Gait Gait Assistance Required: Contact Guard Assist,1 Person Assist Distance (Feet) 30 Able to Maintain Weight Bearing Status Yes During Gait Assistive Devices Assistive Device Gait Belt,Front Wheeled Walker Orthotic/Prosthetic Devices or Brace: No Gait Deviations General Gait Pattern Antalgic,Decreased Stride Length,Decreased Feet Clearance,Flexed Trunk,Step-to Gait Factors Limiting Gait Function Factors Limiting Gait Function Decreased Activity Tolerance, Decreased Strength,Limited Range of Motion,Pain,Poor Balance,Poor Safety Awareness, Respiratory Distress Comments Gait Comments see mobility details Stair Climbing Assessment Comments Stair Climbing Comments Not assessed. PT-Balance Assessment Sitting Balance and Reactions Static Sitting Balance Ability Good Dynamic Sitting Balance Ability Good Standing Balance and Reactions Static Standing Balance Ability Fair Dynamic Standing Balance Ability Fair Device Used FWW M5 PT-IP Objective Assessments Start: 07/22/21 16:44 Freq: NEEDED Status: Active Protocol: Document 07/22/21 15:15 AB (Rec: 07/22/21 17:01 AB [id number]) Orientation Orientation/Cognition Level of Alertness Confusional State Orientation Name Safety Awareness Decreased Safety Awareness Memory Description Short Term Impaired Gross Range of Motion Lower Extremity ROM Assessment Within Functional Limits Strength Lower Extremity Strength Assessment Right Impaired Hip 3-/5 Knee 3+/5 Muscle Tone Muscle Tone WNL Yes M6 PT-IP Treatment Start: 07/22/21 16:44 Freq: NEEDED Status: Active Protocol: Document 07/24/21 10:04 KS (Rec: 07/24/21 12:19 KS [id number]) Physical Therapy Treatment Exercises Exercises Ankle Pumps,Gluteal Sets,Quad Sets Education Education Provided Precautions,Weight Bearing Status,Post-Op Packet,Safety M7 PT-IP Assessment and Plan Start: 07/22/21 16:44 Freq: NEEDED Status: Active Protocol: Document 07/24/21 10:04 KS (Rec: 07/24/21 12:19 KS [id number]) PT Summary Assessment and Plan Potential Rehabilitation Potential Fair Status of Condition at Evaluation Evolving Summary Impairments Pain,ROM,Strength,Balance, Coordination,Sensation,Tone, Cognition,Bed Mobility, Transfers,Gait,Activity Tolerance Progress Towards Goals Progressing Toward Goals,Slow Progress due to Pain,Slow Progress due to Activity Tolerance Assessment Summary Pt Min to Mod A for bed mobility today, Mod A for sit< >stand w/ FWW. Able to tolerate LE exercises and 30 ft ambulation w/ FWW CGA but quick to fatigue. Recalled 1/3 hip precautions. Pt does not have assistance at home and will require SNF to improve tolerance for activity and functional mobility. Goals Bed Mobility Goal Standby Assistance Transfer Goal Standby Assistance,Front Wheeled Walker Gait Goal Standby Assistance,Front Wheel Walker Gait Distance 150 Other Goals up/down 5 steps R rail SBA Days to Meet Goals 5 Frequency of Treatment Frequency Of Treatment Twice a Day Treatment Plan Physical Therapy Treatment Plan Bed Mobility Training,Transfer Training,Gait Training, Therapeutic Exercise,Balance Retraining,Post Op Education, Discharge Planning,Hot or Cold Pack,Neuromuscular Re-ed, Coordination Retraining,Manual Therapy Other Recommendations and Next Treatment Continue with transfer Focus training, and increase distance of ambulation, stair training 5 stairs prior to DC home. Precautions Posterior Hip Precautions No Hip Flexion > 90 degrees,No Hip Internal Rotation,No Hip Adduction Weight Bearing Status Weight Bearing Status Weight Bear as Tolerated Allowed Weight Bearing Amount (enter % RLE WBAT or #) (%) Recommendations To Nursing Amount of Assist Needed 1 Person Assist Discharge Recommendations PT Discharge Recommendations SNF Rehab Transportation Needs at Discharge Private Vehicle,Wheelchair/ Cabulance
[2021-07-24 11:56] LABS: COVID19 -Nasal RAPID Negative (Negative)
--- NOTE | 2021-07-24 13:23 | CM.DPNOTE ---
Addendum entered by CALVIN Renee 07/24/21 15:38: ADD: Spoke w/patient's sister Nadira. She hopes patient is able to go to SNF rehab to recover. If auth does not come through from [employer], Nadira can pick patient up tomorrow Nadira will not be able to pick patient up from the floor but will assist as she is able and asks for HH if patient returns home JW Original Note: DCP Cont Placed call to Jenni at [facility]; she is still awaiting auth from [facility] in order to admit patient today. Wily CAICEDO has completed orders for SNF in case this auth comes through. Missed a call from sister Nadira, attempted to return call and got VM. Need to connect w/Nadira; if [employer] auth is denied patient will need to return home w/family and HH Following closely for this coordination JW
--- NOTE | 2021-07-24 14:13 | PT.IPTN ---
Current Diagnoses Unilateral primary osteoarthritis, right hip (07/24/21) Surgery Performed Operation Date: 07/22/21 07:45 Actual Procedures p Total Hip Arthroplasty(Right) - Janette Sotelo MD Physical Therapy Treatment Note M2 PT-IP Current Condition Start: 07/22/21 16:44 Freq: NEEDED Status: Active Protocol: Document 07/23/21 15:14 SP (Rec: 07/23/21 17:21 SP [id number]) Physical Therapy Current Condition Current Condition Evaluation Date 07/22/21 Treatment Diagnosis s/p R REBEKAH posterior approach; difficulty in walking Onset Date 07/22/21 M3 PT-IP Subjective Start: 07/22/21 16:44 Freq: NEEDED Status: Active Protocol: Document 07/24/21 13:56 KS (Rec: 07/24/21 15:13 KS [id number]) Subjective Physical Therapy Visit Type Type Treatment Note Visit Start Time 13:56 Visit Stop Time 14:13 Total Visit Minutes 17 Number of COLLECTION TECHNICIAN Visits 4 Physical Therapy Visit Comments Patient Goals Go to SNF to get strong before returning home due to no one at home able to give physical assist. Therapy Pain Assessment Pain When Pain Assessed At Rest Pain Present Pain Present Pain Reported M4 PT-IP Mobility and Gait Start: 07/22/21 16:44 Freq: NEEDED Status: Active Protocol: Document 07/24/21 13:56 KS (Rec: 07/24/21 15:13 KS [id number]) PT-Bed Mobility Assessment Supine to Sit Supine to Sit Contact Guard Assistance,1 Person Assistance,Head of Bed Elevated Sit to Supine Sit to Supine Contact Guard Assistance,1 Person Assistance,Head of Bed Elevated Scooting Scooting to Edge of Bed Contact Guard Assistance PT-Transfer Assessment Sit to and From Stand Sit to and from Stand Moderate Assistance,1 Person Assistance,Use of Upper Extremities Equipment Transfer Assistive Device Gait Belt,Front Wheeled Walker Orthotic/Prosthetic Devices or Brace: No Transfers Transfer Destination Bed Transfer Technique pt ambulated using FWW Transfer Ability Level of Assist Moderate Assistance,1 Person Assistance,Use of Upper Extremities Comments Mobility Comments Pt in bed upon arrival from therapy and reporting fatigue but willing to ambulate. Pt CGA for sup<>sit and scooting EOB. Mod A for sit<>Stand w/ FWW. Pt then ambulated ~80 ft in hallway w/ FWW and CGA and step to gait. Pt returned to room and bed CGA for sit<>sup. Reveiwed ankle pumps, quad sets, and glute sets. Pt left in bed w/ all needs in reach, SCDs and alarm on. Gait Assessment Gait Gait Assistance Required: Contact Guard Assist,1 Person Assist Distance (Feet) 80 Able to Maintain Weight Bearing Status Yes During Gait Assistive Devices Assistive Device Gait Belt,Front Wheeled Walker Orthotic/Prosthetic Devices or Brace: No Gait Deviations General Gait Pattern Antalgic,Decreased Stride Length,Decreased Feet Clearance,Flexed Trunk,Step-to Gait Factors Limiting Gait Function Factors Limiting Gait Function Decreased Activity Tolerance, Decreased Strength,Limited Range of Motion,Pain,Poor Balance,Poor Safety Awareness, Respiratory Distress Comments Gait Comments see mobility details Stair Climbing Assessment Comments Stair Climbing Comments Not assessed. PT-Balance Assessment Sitting Balance and Reactions Static Sitting Balance Ability Good Dynamic Sitting Balance Ability Good Standing Balance and Reactions Static Standing Balance Ability Fair Dynamic Standing Balance Ability Fair Device Used FWW M5 PT-IP Objective Assessments Start: 07/22/21 16:44 Freq: NEEDED Status: Active Protocol: Document 07/22/21 15:15 AB (Rec: 07/22/21 17:01 AB [id number]) Orientation Orientation/Cognition Level of Alertness Confusional State Orientation Name Safety Awareness Decreased Safety Awareness Memory Description Short Term Impaired Gross Range of Motion Lower Extremity ROM Assessment Within Functional Limits Strength Lower Extremity Strength Assessment Right Impaired Hip 3-/5 Knee 3+/5 Muscle Tone Muscle Tone WNL Yes M6 PT-IP Treatment Start: 07/22/21 16:44 Freq: NEEDED Status: Active Protocol: Document 07/24/21 13:56 KS (Rec: 07/24/21 15:13 KS [id number]) Physical Therapy Treatment Exercises Exercises Ankle Pumps,Gluteal Sets,Quad Sets Education Education Provided Precautions,Weight Bearing Status,Post-Op Packet,Safety M7 PT-IP Assessment and Plan Start: 07/22/21 16:44 Freq: NEEDED Status: Active Protocol: Document 07/24/21 13:56 KS (Rec: 07/24/21 15:13 KS [id number]) PT Summary Assessment and Plan Potential Rehabilitation Potential Fair Status of Condition at Evaluation Evolving Summary Impairments Pain,ROM,Strength,Balance, Coordination,Sensation,Tone, Cognition,Bed Mobility, Transfers,Gait,Activity Tolerance Progress Towards Goals Progressing Toward Goals,Slow Progress due to Pain,Slow Progress due to Activity Tolerance Assessment Summary Pt showed improvements w/ mobility and tolerance for activty this PM. CGA for bed mobility, but still requiring Mod A to compelte sit<>Stand. Able to toelrate ~80 ft ambulation w/ FWW but became fatigue and slightly SOB. Pt does not have assistance at home and will require SNF to improve tolerance for activity and functional mobility. Goals Bed Mobility Goal Standby Assistance Transfer Goal Standby Assistance,Front Wheeled Walker Gait Goal Standby Assistance,Front Wheel Walker Gait Distance 150 Other Goals up/down 5 steps R rail SBA Days to Meet Goals 7 Frequency of Treatment Frequency Of Treatment Twice a Day Treatment Plan Physical Therapy Treatment Plan Bed Mobility Training,Transfer Training,Gait Training, Therapeutic Exercise,Balance Retraining,Post Op Education, Discharge Planning,Hot or Cold Pack,Neuromuscular Re-ed, Coordination Retraining,Manual Therapy Other Recommendations and Next Treatment Continue with transfer Focus training, and increase distance of ambulation, stair training 5 stairs prior to DC home. Precautions Posterior Hip Precautions No Hip Flexion > 90 degrees,No Hip Internal Rotation,No Hip Adduction Weight Bearing Status Weight Bearing Status Weight Bear as Tolerated Allowed Weight Bearing Amount (enter % RLE WBAT or #) (%) Recommendations To Nursing Amount of Assist Needed 1 Person Assist Discharge Recommendations PT Discharge Recommendations SNF Rehab Transportation Needs at Discharge Private Vehicle,Wheelchair/ Cabulance
[2021-07-24] MEDS: WARFARIN 2 MG TABLET 6 MG PO (16:35)
[2021-07-24] MEDS: ATORVASTATIN 20 MG TABLET 10 MG PO (20:51)
[2021-07-24] MEDS: LATANOPROST 0.005% OPHTH 2.5 ML 1 DROPS EYE-BOTH (22:43)
[2021-07-25 00:05] VITALS: BP 125/66; PULSE 80; RESP 18; TEMP 36.9; O2SAT 97
[2021-07-25 04:05] VITALS: BP 131/75; PULSE 63; RESP 18; TEMP 37.2; O2SAT 98
[2021-07-25] MEDS: IBUPROFEN 400 MG TABLET PO ×2 (05:17→13:07)
--- NOTE | 2021-07-25 07:27 | PM.PNPO.1 ---
Subjective Subjective Date Patient Seen: 07/25/21 Time Patient Seen: 07:27 Interval history: Patient is complaining of mild right hip pain this morning. He notes he has new numbness in the bilateral feet. Overall he is feeling well and would like to be discharged to SNF today Exam Vital Signs (past 8 hours): - 07/25/21 00:05 07/25/21 04:05 Temperature 98.5 F 98.9 F Pulse Rate 80 63 Respiratory Rate 18 18 Blood Pressure 125/66 131/75 Pulse Oximetry 97 98 Oxygen Delivery Method Room Air Oxygen Flow Rate 0 Narrative Exam Narrative: Pleasant 80-year-old male, resting comfortably in his chair, no acute distress. Dressing is clean, dry, intact. Bilateral lower extremity motor functions are grossly intact. Sensation is grossly intact to light touch. Bilateral calves are soft, nontender to palpation. Objective Labs Result Diagrams: 07/23/21 06:10 Labs: Laboratory Results - last 24 hr 07/24/21 11:28 SARS-CoV-2 (PCR) Negative [facility] Medical History Afib CAD (coronary artery disease) CHF (congestive heart failure) COPD (chronic obstructive pulmonary disease) Current every day smoker HLD (hyperlipidemia) HTN (hypertension) MICHAELA on CPAP Osteoarthritis Pedal edema PVC's (premature ventricular contractions) RBBB (right bundle branch block) Surgical History History of arthroscopy of right shoulder History of carpal tunnel surgery of left wrist History of total left hip replacement History of total left knee replacement History of total right knee replacement Hx of bilateral cataract extraction Hx of hernia repair Hx of repair of left rotator cuff Status post repair of nerve Social History household members: family Smoking Status: Current every day smoker alcohol intake: former Assessment & Plan Post-op Postoperative Procedures: Procedures Operation Date: 07/22/21 07:45 Actual Procedure Side Surgeon p Total Hip Arthroplasty Right Janette Sotelo MD Postoperative day: 3 Postoperative status narrative: Stable status post right total hip arthroplasty, posterior approach Postoperative plan narrative: -mobilize with PT. Maintain posterior hip precautions x6 weeks. Weightbearing as tolerated with front wheel walker. -continue with current pain regimen and DVT prophylaxis -DC to SNF today, when cleared by PT
[2021-07-25] MEDS: ALBUTEROL/IPRATROPIUM 3 ML AMPUL INH ×2 (07:30→10:54)
[2021-07-25] MEDS: BUDESONIDE 0.5 MG/2 ML NEB INH (07:31)
[2021-07-25 07:45] VITALS: PULSE 71; RESP 22; O2SAT 97
[2021-07-25] MEDS: polyethylene glycoL 3350 17 GM POWD.PACK PO (08:01)
[2021-07-25] MEDS: NICOTINE 21 MG PATCH TOP (08:03)
[2021-07-25 08:05] VITALS: BP 126/85; PULSE 85; RESP 18; TEMP 36.6; O2SAT 96
[2021-07-25] MEDS: ACETAMINOPHEN 325 MG TABLET 650 MG PO (08:05)
[2021-07-25 08:06] VITALS: BP 126/85; PULSE 80
[2021-07-25] MEDS: lisinopriL 20 MG TABLET 40 MG PO (08:06)
[2021-07-25] MEDS: ASPIRIN EC 81 MG TABLET PO (08:06)
[2021-07-25] MEDS: GABAPENTIN 300 MG CAPSULE PO (08:06)
[2021-07-25] MEDS: DOCUSATE 100 MG CAPSULE PO (08:06)
[2021-07-25] MEDS: AMLODIPINE 5 MG TABLET PO (08:06)
[2021-07-25] MEDS: METOPROLOL IR 25 MG TABLET PO (08:06)
[2021-07-25] MEDS: SODIUM CHLORIDE 0.9% FLUSH 10 ML IV (08:07)
--- NOTE | 2021-07-25 08:45 | PT.IPTN ---
Current Diagnoses Unilateral primary osteoarthritis, right hip (07/24/21) Surgery Performed Operation Date: 07/22/21 07:45 Actual Procedures p Total Hip Arthroplasty(Right) - Janette Sotelo MD Physical Therapy Treatment Note M2 PT-IP Current Condition Start: 07/22/21 16:44 Freq: NEEDED Status: Active Protocol: Document 07/23/21 15:14 SP (Rec: 07/23/21 17:21 SP [id number]) Physical Therapy Current Condition Current Condition Evaluation Date 07/22/21 Treatment Diagnosis s/p R REBEKAH posterior approach; difficulty in walking Onset Date 07/22/21 M3 PT-IP Subjective Start: 07/22/21 16:44 Freq: NEEDED Status: Active Protocol: Document 07/25/21 08:22 ER (Rec: 07/25/21 11:27 ER [email or web address]) Subjective Physical Therapy Visit Type Type Treatment Note Visit Start Time 08:22 Visit Stop Time 08:45 Total Visit Minutes 23 Notes Pt agreeable to work with therapy. HUANG Dick lead treatment and provided education under the direct supervision and instruction of TONNY Mcguire. Number of INTERIOR DESIGN PRINCIPAL Visits 5 Physical Therapy Visit Comments Patient Comments Pt said he was 3/10 for pain, but that was much improved from the 8-9/10 before surgery . Patient Goals Go to SNF to get strong before returning home due to no one at home able to give physical assist. Therapy Pain Assessment Pain When Pain Assessed At Rest Pain Present Pain Present Pain Reported Location right hip Intensity 3 Scale Used Numeric (0 - 10) Pain Behaviors Facial Grimacing,Guarding, Wincing Pain Management Techniques Distraction,Modification of Treatment,Re-positioning, Timing of Activity with Medications M4 PT-IP Mobility and Gait Start: 07/22/21 16:44 Freq: NEEDED Status: Active Protocol: Document 07/25/21 08:22 ER (Rec: 07/25/21 11:27 ER [id number]) PT-Bed Mobility Assessment Supine to Sit Supine to Sit Contact Guard Assistance,1 Person Assistance,Head of Bed Elevated Sit to Supine Sit to Supine Contact Guard Assistance,1 Person Assistance,Head of Bed Elevated Scooting Scooting to Edge of Bed Contact Guard Assistance PT-Transfer Assessment Sit to and From Stand Sit to and from Stand Contact Guard Assistance,1 Person Assistance,Use of Upper Extremities Equipment Transfer Assistive Device Gait Belt,Front Wheeled Walker Orthotic/Prosthetic Devices or Brace: No Transfers Transfer Destination Bed Transfer Technique pt ambulated using FWW Transfer Ability Level of Assist Contact Guard Assistance,1 Person Assistance,Use of Upper Extremities Comments Mobility Comments Pt in chair upon arrival, reporting R hip pain at 3/10 but much reduced. CGA for sit <>stand w/ FWW and UE support. Pt ambulated with FWW and CGA , around bed and into hallway ~80 ft. Cues to remain close to walker and walk with FWW instead of lifting FWW into position and stepping to it. Pt. continued to step to FWW. Cues for upright posture. Pt became light headed and stand> sit with FWW and CGA to WC. BP elevated at 162/86, HR 104, SaO2 96%. Wheeled Pt back to room. Pt sit>stand with FWW and CGA, and ambulated with FWW and CGA to bed. Stand>sit with FWW and CGA. Pt sit> supine and scooted laterally in bed SBA. Pt left in bed with call light and all needs within easy reach. Updated communications board to CGA+1 for transfers and gait. Advised nursing of improved transfer and ambulation status and light-headed episode. Nursing advised that Pt had been given HBP meds just previous to tx. Advised care mgmt of improved ambulation and transfers. Gait Assessment Gait Gait Assistance Required: Contact Guard Assist,1 Person Assist Distance (Feet) 80 Assistive Devices Assistive Device Gait Belt,Front Wheeled Walker Orthotic/Prosthetic Devices or Brace: No Gait Deviations General Gait Pattern Antalgic,Decreased Stride Length,Decreased Feet Clearance,Flexed Trunk,Step-to Gait Factors Limiting Gait Function Factors Limiting Gait Function Decreased Activity Tolerance, Decreased Strength,Limited Range of Motion,Pain,Poor Balance,Poor Safety Awareness, Respiratory Distress Comments Gait Comments see mobility details Stair Climbing Assessment Comments Stair Climbing Comments Unable to assess. PT-Balance Assessment Sitting Balance and Reactions Static Sitting Balance Ability Good Dynamic Sitting Balance Ability Good Standing Balance and Reactions Static Standing Balance Ability Fair Dynamic Standing Balance Ability Fair Device Used FWW M5 PT-IP Objective Assessments Start: 07/22/21 16:44 Freq: NEEDED Status: Active Protocol: Document 07/22/21 15:15 AB (Rec: 07/22/21 17:01 AB [id number]) Orientation Orientation/Cognition Level of Alertness Confusional State Orientation Name Safety Awareness Decreased Safety Awareness Memory Description Short Term Impaired Gross Range of Motion Lower Extremity ROM Assessment Within Functional Limits Strength Lower Extremity Strength Assessment Right Impaired Hip 3-/5 Knee 3+/5 Muscle Tone Muscle Tone WNL Yes M6 PT-IP Treatment Start: 07/22/21 16:44 Freq: NEEDED Status: Active Protocol: Document 07/25/21 08:22 ER (Rec: 07/25/21 11:27 ER [email or web address]) Physical Therapy Treatment Education Education Provided Precautions,Weight Bearing Status,Post-Op Packet,Safety M7 PT-IP Assessment and Plan Start: 07/22/21 16:44 Freq: NEEDED Status: Active Protocol: Document 07/25/21 08:22 ER (Rec: 07/25/21 11:27 ER [email or web address]) PT Summary Assessment and Plan Potential Rehabilitation Potential Fair Status of Condition at Evaluation Evolving Summary Impairments Pain,ROM,Strength,Balance, Coordination,Sensation,Tone, Cognition,Bed Mobility, Transfers,Gait,Activity Tolerance Progress Towards Goals Progressing Toward Goals,Slow Progress due to Pain,Slow Progress due to Activity Tolerance Assessment Summary Pt demonstrated improved mobility and ambulation today, requiring reduced assistance for both. CGA for bed mobs, transitions, and ambulation. Tolerated ~80 ft ambulation with FWW and CGA before becoming light headed. Pt returned to room via WC, and Pt was able to return to bed CGA with FWW. Recommend SNF or skilled rehab to improve strength, endurance, balance, and stair management as requires 5 steps to go home. Goals Bed Mobility Goal Standby Assistance Transfer Goal Standby Assistance,Front Wheeled Walker Gait Goal Standby Assistance,Front Wheel Walker Gait Distance 150 Other Goals up/down 5 steps R rail SBA Days to Meet Goals 7 Frequency of Treatment Frequency Of Treatment Twice a Day Treatment Plan Physical Therapy Treatment Plan Bed Mobility Training,Transfer Training,Gait Training, Therapeutic Exercise,Balance Retraining,Post Op Education, Discharge Planning,Hot or Cold Pack,Neuromuscular Re-ed, Coordination Retraining,Manual Therapy Other Recommendations and Next Treatment Continue with transfer Focus training, and increase distance of ambulation, stair training 5 stairs prior to DC home. Precautions Posterior Hip Precautions No Hip Flexion > 90 degrees,No Hip Internal Rotation,No Hip Adduction Weight Bearing Status Weight Bearing Status Weight Bear as Tolerated Allowed Weight Bearing Amount (enter % RLE WBAT or #) (%) Recommendations To Nursing Amount of Assist Needed 1 Person Assist Discharge Recommendations PT Discharge Recommendations SNF Rehab Transportation Needs at Discharge Private Vehicle,Wheelchair/ Cabulance
[2021-07-25 10:58] VITALS: PULSE 76; RESP 18; O2SAT 96
[2021-07-25] MEDS: OXYCODONE IR 5 MG TABLET PO (13:07)
--- NOTE | 2021-07-25 13:37 | PC.NURSE ---
Day shift: Pt has all personal belongings. SNF packet given to transport person. Medicated for pain per NOV. Dressing remains CDI. Left unit in WC w/ transport person at approx 1340.
--- NOTE | 2021-07-26 08:54 | CM.DPNOTE ---
DC Note Late Entry Jenni/ [facility] received auth through [employer] 07.25.21 so we proceeded with coordination of DC to SNF yesterday. Patient was pleased with this information All completed and signed DC ppk and med list faxed to [facility]nade[facility]. Included DC Summary and PASRR Care e me was scheduled for p/u at approx 1330, RN Francisco aware and completed nurse to nurse report. In addition, COVID test was updated Plan: DC yesterday to [facility] via w/c swathi JW
== END 2021-07-25 13:42 | disposition home or self-care (01) ==
LOC: OR 09:40 → AC 09:40
PROVIDERS: Admitting Provider Orthopaedic Surgery; PCP Internal Medicine; Referring Provider Orthopaedic Surgery; Visit Provider Orthopaedic Surgery
PROC: 0SR90JZ Replacement of Right Hip Joint with Synthetic Substitute, Open Approach (ICD-10-PCS; CPT 27130; principal; 2021-07-22 07:45)
DX: M16.11 Unilateral primary osteoarthritis, right hip (principal); I10 Essential (primary) hypertension; I48.91 Unspecified atrial fibrillation; F17.210 Nicotine dependence, cigarettes, uncomplicated; E66.9 Obesity, unspecified; J44.9 Chronic obstructive pulmonary disease, unspecified; G47.33 Obstructive sleep apnea (adult) (pediatric); I45.10 Unspecified right bundle-branch block; Z68.35 Body mass index [BMI] 35.0-35.9, adult
CPT/HCPCS: 27130; 36415; 72170; 73502; 85014; 85018; 85610; 87635; 94640; 94760; 97116; 97162; 97530; C1776; C9803; G0378; C9290; J0171; J0330; J0690; J1100; J2405; J2704; J3010; J7613

== ENCOUNTER → 2022-04-20 12:29 | Outpatient (CLI) | payer OTHER, MEDICAID, SELFPAY ==
[2021-07-22 12:30] VITALS: BMI 31.6
[2022-04-20 14:00] LABS: Alanine Aminotransferase 13 IU/L (<50); Albumin 3.8 g/dL (3.5-5.0); Albumin Globulin Ratio 1.3 (1.0-2.8); Alkaline Phosphatase 83 U/L (38-126); Aspartate Aminotransferase 18 IU/L (17-59); BUN Creatinine Ratio 14.5 (6-22); Bilirubin Total 0.8 mg/dL (0.2-1.3); Blood Urea Nitrogen 17 mg/dL (9-20); Calcium 8.4 mg/dL (8.4-10.2); Carbon Dioxide 28 mmol/L (22-32); Chloride 107 mmol/L (98-107); Estimated Glomerular Filt Rate > 60 mL/min (>60); Glucose 111 mg/dL (80-110); HEMOLYSIS < 15 (0-50); Magnesium 2.2 mg/dL (1.6-2.3); Potassium 4.5 mmol/L (3.4-5.1); Sodium 142 mmol/L (137-145); Total Protein 6.8 g/dL (6.3-8.2)
[2022-04-22 13:59] LABS: Cholesterol, Total 133 mg/dL (100-199); HDL-Cholesterol 33 mg/dL (>39); HDL-Particle (Total) 22.5 umol/L (>=30.5); LDL Particle 1056 nmol/L (<1000); LDL-Cholsterol 85 mg/dL (0-99); LP-IR Score 41 (<=45); Small LDL- Particle 275 nmol/L (<=527); Triglycerides 72 mg/dL (0-149)
== END ==
PROVIDERS: PCP Internal Medicine; Referring Provider Specialist; Visit Provider Specialist
DX: I10 Essential (primary) hypertension (principal); E78.2 Mixed hyperlipidemia
CPT/HCPCS: 36415; 80053; 80061; 83704; 83735

== ENCOUNTER → 2022-11-30 13:11 | Outpatient (CLI) | payer OTHER, MEDICAID, SELFPAY ==
[2021-07-22 12:30] VITALS: BMI 31.6
--- NOTE | 2022-11-30 | DI.CT.S_ITS ---
PROCEDURE: CT CHEST WO CON INDICATIONS: Chest wall pain TECHNIQUE: Noncontrast 5 mm thick sections acquired from the pulmonary apices to the posterior costophrenic angles. 1 mm lung window, 5 mm thick coronal and sagittal and 7 mm axial MIP reformats were then acquired. For radiation dose reduction, the following was used: automated exposure control, adjustment of mA and/or kV according to patient size. COMPARISON: None. FINDINGS: Image quality: Excellent. Lungs and pleura: No acute air space opacities. No pleural effusions or pneumothorax. Central and peripheral airways are patent and normal in caliber. 5 millimeters subpleural nodule, left upper lobe (3/151). Mild centrilobular emphysema. Mild biapical scarring. Mediastinum: Heart size is enlarged. No pericardial effusion. No mediastinal adenopathy by size criteria. Thoracic aorta and central pulmonary arteries are normal in size. Esophagus is normal in caliber. No hiatal hernia. Moderate coronary artery calcifications. Bones and chest wall: No suspicious bony lesions. No vertebral body compression fractures. No axillary or supraclavicular adenopathy by size criteria. Thyroid gland is unremarkable . Abdomen: Fluid attenuating hepatic cysts. IMPRESSION: No acute findings to explain the patient's chest pain. 5 millimeter subpleural nodule in the lower left upper lobe. Consider 12 month follow-up per Fleischner society guidelines. Dictated by: Dany Salazar M.D. on 11/30/2022 at 13:46 Approved by: Dany Salazar M.D. on 11/30/2022 at 13:49
== END ==
PROVIDERS: PCP Internal Medicine; Referring Provider Internal Medicine; Visit Provider Internal Medicine
DX: R07.89 Other chest pain (principal); R91.1 Solitary pulmonary nodule; J43.2 Centrilobular emphysema; I51.7 Cardiomegaly; I25.10 Atherosclerotic heart disease of native coronary artery without angina pectoris; K76.89 Other specified diseases of liver
CPT/HCPCS: 71250

== ENCOUNTER → 2023-12-23 08:50 | Outpatient (CLI) | payer OTHER, MEDICAID, SELFPAY ==
[2023-07-07 13:32] VITALS: BMI 31.6
--- NOTE | 2023-12-23 08:53 | DI.CT.S_ITS ---
PROCEDURE: CT CHEST WO CON INDICATIONS: systolic (congestive) heart failure pulmonary nod TECHNIQUE: Noncontrast 2.0-2.5 mm thick sections acquired from the pulmonary apices to the posterior costophrenic angles. 7 mm thick axial MIP and 5 mm coronal and sagittal reformats were then acquired. For radiation dose reduction, the following was used: automated exposure control, adjustment of mA and/or kV according to patient size. COMPARISON: [facility], CT, CT CHEST WO [facility], 11/30/2022, 13:19. FINDINGS: Image quality: Diagnostic. Lower Neck: No enlarged lymph nodes. Thyroid: No thyroid nodules which require sonographic follow up, per consensus guidelines. Axillae: No enlarged lymph nodes. Chest Wall: Unremarkable. Bones: Unremarkable. Lungs and Pleura: No pneumothorax or pleural effusions. 5 mm subpleural left upper lobe nodule is unchanged from the study dated November 30, 2022 (series 3/image 157). New consolidative radiopacities are present at the posterolateral aspect of the right middle lobe (series 3/image 196). This measures 1.7 x 1.2 x 0.6 cm. This finding suggests atelectasis or pulmonary consolidation although a discrete nodule cannot be excluded. No other suspicious pulmonary nodules or acute airspace opacities. Heart: Heart size is normal. No pericardial effusion. Thoracic Vessels: The aorta and pulmonary arteries demonstrate normal size. Mediastinum and Meghann: No enlarged lymph nodes. Esophagus: No wall thickening. No hiatal hernia. Upper Abdomen: Visualized upper abdomen solid organs and bowel loops appear normal. IMPRESSION: 1. Stable 5 mm left upper lobe pulmonary nodule. No further follow-up recommended. 2. Questionable atelectasis, pulmonary consolidation, or pulmonary nodule is described above in the right middle lobe. Three-month CT follow-up is recommended to ensure resolution and exclude underlying neoplasm. Fleischner Society criteria for SOLID lung nodule followup. Nodule size (mm)Low-risk patientHigh-risk patient<6 (single or multiple)No routine followup.Optional CT at 12 months. 6-8 (single or multiple)CT at 6-12 months, then optional CT at 18-24 mo.CT at 6-12 months, then CT at 18-24 months. >8 (single)CT at 3 months, PET-CT, or biopsy. Same as for low-risk pts. >8 (multiple)CT at 3-6 months, then optional CT at 18-24 mo.CT at 3-6 months, then CT at 18-24 months. Fleischner Society criteria for SUB-SOLID lung nodule followup. Solitary pure ground-glass nodules<6 mm (ground glass or part solid)No followup needed. 6 mm or larger (ground glass)CT at 6-12 months to confirm persistence, then CT every 2 years until 5 years.6 mm or larger (part solid)CT at 3-6 months to confirm persistence, then annual CT until 5 years if unchanged and solid component remains <6 mm. Multiple sub-solid nodules<6 mmCT at 3-6 months, then CT consider at 2 & 4 years for high risk patients. [address] at 3-6 months. Subsequent management based on most suspicious lesions. Recommendations do not apply to lung cancer screening, patients with immunosuppression, or patients with known primary cancer. Dictated by: Nguyen Fox M.D. on 12/23/2023 at 10:05 Approved by: Nguyen Fox M.D. on 12/23/2023 at 10:16
--- NOTE | 2023-12-23 08:53 | DI.ECHO.S_ITS ---
[facility] : : [id number] : : [place] : : [id number] : : Phone: [phone] Echocardiogram Report + + :Name: DWAINE ZELAYA JR Study Date: 12/23/2023 Height: 73 in : :Hospital ReadingLocation: Weight: 248 lb : : Gender: Male BSA: 2.4 m2 : :: 1940 Age: 83 yrs BP: 100/68 mmHg: :Reason For Study: CONGESTIVE HEART FAILURE, PULMONARY NODULE : :Ordering Physician: CARRIE, : :ERIC Performed By: Emiliano Singh : :Referring: ERIC BUTLER : + + Interpretation Summary The ejection fraction is estimated to be 50-55%. Regional wall motion abnormalities cannot be excluded due to limited visualization. The right ventricle is moderately dilated. There is mild mitral regurgitation. There is mild to moderate aortic regurgitation. There is mild tricuspid regurgitation. The right ventricular systolic pressure is estimated to be at least 50 mmHg based on an estimated right atrial pressure of 3 mm Hg. Procedure: A two-dimensional transthoracic echocardiogram with color flow and Doppler was performed. The study quality was technically adequate. Comparison is made with the echocardiogram of 11/11/2019. POOR EKG. Left Ventricle: The left ventricle is normal in size and wall thickness. The ejection fraction is estimated to be 50-55%. Regional wall motion abnormalities cannot be excluded due to limited visualization. Right Ventricle: The right ventricle is moderately dilated. Right ventricular systolic function is borderline reduced. Atria: The left atrium is severely dilated. The right atrium is moderate to severely dilated. The interatrial septum grossly appears intact with no obvious evidence for an atrial septal defect. Mitral Valve: The mitral valve leaflets are mildly calcified. There is no mitral valve stenosis. There is mild mitral regurgitation. Aortic Valve: The aortic valve is trileaflet. The aortic valve is mildly calcified. There is no aortic valve stenosis. There is mild to moderate aortic regurgitation. Tricuspid Valve: The tricuspid valve is normal in structure and function. There is no tricuspid stenosis. There is mild tricuspid regurgitation. The right ventricular systolic pressure is estimated to be at least 50 mmHg based on an estimated right atrial pressure of 3 mm Hg. Pulmonic Valve: The pulmonic valve is not well visualized. There is no pulmonic valvular stenosis. There is no pulmonic valvular regurgitation. Great Vessels: The aortic root is normal size. The dimensions of the ascending aorta are normal. The IVC is of normal diameter and collapses greater than 50% with a sniff. This suggests a low right atrial pressure of 3 mm Hg. Pericardium/ Pleura There is no pericardial effusion. There is no pleural effusion. MMode/2D Measurements & Calculations LVIDd: 5.8 cm LVOT diam: 2.2 cm LVIDs: 4.5 cm Ao root diam: 3.3 cm FS: 23.4 % asc Aorta Diam: 3.6 cm IVSd: 0.97 cm LVPWd: 0.99 cm LV snyder. diameter/BSA (cm/m^2): 2.5 LV sys. diameter/BSA (cm/m^2): 1.9 LA A2 area: 33.7 cm2 RA long axis: 6.3 cm LA A4 area: 35.5 cm2 RA area: 28.7 cm2 LA length (vol): 6.9 cm RA vol: 111.4 ml LA vol: 146.3 ml RA : 47.2 ml/m2 LA vol index: 62.1 ml/m2 IVC diam: 1.7 cm RVD1 (basal): 5.2 cm RVD2 (mid): 4.6 cm TAPSE: 1.8 cm Doppler Measurements & Calculations Ao V2 max: 171.5 cm/sec LVOT Max Corona: 114.9 cm/sec Ao V2 mean: 125.0 cm/sec LV V1 max P.3 mmHg Ao max P.9 mmHg LV V1 VTI: 24.5 cm Ao mean P.0 mmHg KOKI(I,D): 2.7 cm2 Ao V2 VTI: 33.8 cm KOKI(V,D): 2.5 cm2 sev ratio: 0.73 KOKI indexed to BSA (cm^2/m^2): 1.2 MV E max corona: 81.7 cm/sec TR max corona: 344.9 cm/sec MV A max corona: 21.6 cm/sec TR max P.6 mmHg MV E/A: 3.8 PA V2 max: 92.6 cm/sec Med Peak E' Corona: 4.9 cm/sec PA V2 mean: 65.1 cm/sec E/E' med: 16.7 PA mean P.9 mmHg Lat Peak E' Corona: 8.6 cm/sec PA pr(Accel): 41.9 mmHg E/E' lat: 9.5 E/e' average: 13.1 MV dec time: 0.15 sec SVLVOT): 92.6 ml Reading Physician:10:34 AM
== END ==
PROVIDERS: PCP Internal Medicine; Referring Provider Internal Medicine; Visit Provider Internal Medicine
DX: I08.3 Combined rheumatic disorders of mitral, aortic and tricuspid valves (principal); R91.1 Solitary pulmonary nodule; J44.9 Chronic obstructive pulmonary disease, unspecified; I50.20 Unspecified systolic (congestive) heart failure
CPT/HCPCS: 71250; 93306

== ENCOUNTER → 2024-03-28 15:15 | Outpatient (CLI) | payer OTHER, MEDICAID, SELFPAY ==
[2023-07-07 13:32] VITALS: BMI 31.6
--- NOTE | 2024-03-28 15:25 | DI.CT.S_ITS ---
PROCEDURE: CT CHEST WO CON INDICATIONS: PULMONARY NODULE TECHNIQUE: Noncontrast 5 mm thick sections acquired from the pulmonary apices to the posterior costophrenic angles. 1 mm lung window, 5 mm thick coronal and sagittal and 7 mm axial MIP reformats were then acquired. For radiation dose reduction, the following was used: automated exposure control, adjustment of mA and/or kV according to patient size. COMPARISON: [facility], CT, CT CHEST WO CON, 12/23/2023, 9:09. [facility], CT, CT CHEST WO CON, 11/30/2022, 13:19. FINDINGS: Image quality: This examination is limited by involuntary motion artifact. Lower Neck: No enlarged lymph nodes. Thyroid: No thyroid nodules which require sonographic follow up, per consensus guidelines. Axillae: No enlarged lymph nodes. Chest Wall: Unremarkable. Bones: Generalized degenerative changes are seen, including involving the right shoulder. Lungs and Pleura: Within the right middle lobe laterally, there is a subpleural poorly defined nodule that measures 14 x 8 mm, which is clearly smaller on the current study than on the prior. Within the left upper lobe laterally, there is a 5 mm subpleural nodule seen, as on series 3, image 151, which is stable compared to the prior. No definite new nodules are seen. No focal infiltrates are seen. No pneumothorax or pleural effusions are seen. Heart: Heart size is normal. No pericardial effusion. [id number] coronary artery calcification is seen. Thoracic Vessels: The aorta and pulmonary arteries demonstrate normal size. Mediastinum and Meghann: No enlarged lymph nodes. Esophagus: No wall thickening. There is a small hiatal hernia. Upper Abdomen: Water density liver cysts are seen. The visualized portions of the upper abdominal structures are otherwise unremarkable for imaging technique. IMPRESSION: Clear interval decrease in size of the nodular opacity within the lateral aspect of the right middle lobe. Stable 5 mm left upper lobe pulmonary nodule. Additional findings: Focal right shoulder degenerative change [id number] coronary artery calcification Small hiatal hernia Water density liver cysts Dictated by: Ruslan Agee M.D. on 03/29/2024 at 12:59 Approved by: Ruslan Agee M.D. on 03/29/2024 at 13:03
== END ==
PROVIDERS: PCP Internal Medicine; Referring Provider Internal Medicine; Visit Provider Internal Medicine
DX: R91.1 Solitary pulmonary nodule (principal); I25.10 Atherosclerotic heart disease of native coronary artery without angina pectoris; K44.9 Diaphragmatic hernia without obstruction or gangrene; K76.89 Other specified diseases of liver
CPT/HCPCS: 71250

== ENCOUNTER 2024-09-14 18:59 | Inpatient (IN) | payer MEDICARE, MEDICAID, SELFPAY ==
[2023-07-07 13:32] VITALS: BMI 31.6
[2024-09-14] VITALS (9 sets, daily range): BP systolic 128–165; BP diastolic 57–85; PULSE 61–109; RESP 18–34; TEMP 36.2–36.9; O2SAT 91–96; BMI 32.3
--- NOTE | 2024-09-14 19:26 | PC.NURSE ---
pt has small open area that has a larger reddened area that is edematous around it that cover the sacrum and the top of the buttocks pt states he was unable to get out of the bed yesterday because of the pain in the area and that he just felt bad d/t the sore
--- NOTE | 2024-09-14 19:26 | ED.SKABFB ---
HPI - Skin/Abscess/Foreign Bdy General Chief complaint: Skin/Abscess/Foreign Body Stated complaint: sent by rosalie Toro on buttocks Time Seen by Provider: 09/14/24 19:03 Source: patient Mode of arrival: Wheelchair Limitations: no limitations History of Present Illness HPI narrative: Patient was an 83-year-old male. Has a history of atrial fibrillation. Is on Coumadin. Also has a history of COPD, hypertension who is here for evaluation of a draining infection in his buttocks. He stated that approximately 3 days ago he started noticing discomfort in his lower back/upper buttocks area. It started to drain that day. Has been persistently draining since then. He denies any fevers. When the symptoms are not improving he went to an outside walk-in clinic. He was sent to the emergency department. He stated that they did do a culture at that visit at the walk-in clinic. He denies any problems urinating or change in bowel habits. No vomiting. He is taking all of his medications as directed. Related Data Home Medications Medication Instructions Recorded Confirmed albuterol sulfate 90 mcg/actuation 2 puff inhalation Q4-6H PRN 07/15/21 07/27/23 aerosol inhaler Shortness Of Breath amlodipine 5 mg tablet 5 mg PO QAM 07/15/21 07/27/23 baclofen 10 mg tablet 10 mg PO Q8H PRN Muscle Spasm 07/15/21 07/27/23 fluticasone 250 mcg-salmeterol 50 1 inh inhalation BID 07/15/21 07/27/23 mcg/dose blistr powdr for inhalation (Advair Diskus) gabapentin 300 mg tablet 300 mg PO BID 07/15/21 07/27/23 latanoprost 0.005 % eye drops 1 drp ophthalmic (eye) DIRECTED 07/15/21 07/27/23 lisinopril 40 mg tablet 40 mg PO DAILY 07/15/21 07/27/23 metoprolol tartrate 25 mg tablet 25 mg PO BID 07/15/21 07/22/21 ibuprofen 200 mg capsule 400 mg PO Q6H PRN Pain 07/18/21 07/27/23 tiotropium bromide 18 mcg capsule 1 cap inhalation DAILY 07/18/21 07/27/23 with inhalation device (Spiriva with HandiHaler) warfarin 2 mg tablet 2 mg PO DIRECTED 07/18/21 07/27/23 atorvastatin 40 mg tablet 40 mg PO DAILY 07/27/23 07/27/23 montelukast 10 mg tablet 10 mg PO DAILY 07/27/23 07/27/23 tamsulosin 0.4 mg capsule 0.4 mg PO DAILY 07/27/23 07/27/23 azithromycin 250 mg capsule 250 mg PO DAILY 09/14/24 09/14/24 Allergies Allergy/AdvReac Type Severity Reaction Status Date / Time No Known Drug Allergies Allergy Verified 09/14/24 19:14 Review of Systems Review of Systems ROS Unobtainable: All systems reviewed & are unremarkable except as noted in HPI and below Patient History Medical History Osteoarthritis Pedal edema CHF (congestive heart failure) PVC's (premature ventricular contractions) RBBB (right bundle branch block) Current every day smoker CAD (coronary artery disease) HLD (hyperlipidemia) HTN (hypertension) MICHAELA on CPAP COPD (chronic obstructive pulmonary disease) Afib Surgical History History of arthroscopy of right shoulder History of carpal tunnel surgery of left wrist History of total left hip replacement History of total left knee replacement History of total right knee replacement Hx of bilateral cataract extraction Hx of hernia repair Hx of repair of left rotator cuff Status post repair of nerve Social History household members: family Smoking Status: Current every day smoker alcohol intake: former Smoking Status: Current every day smoker tobacco type: cigarettes Exam Initial Vital Signs Initial Vital Signs: Vital Signs Pulse Rate 91 H 09/14/24 19:09 Blood Pressure 165/85 H 09/14/24 19:09 Pulse Oximetry 95 09/14/24 19:09 Const General: cooperative HENMT Head: normal to inspection and normocephalic Resp Effort & Inspection: normal respiratory effort Cardio Rate: tachycardic GI Inspection: non-distended Skin Other: Patient with a 1.5 x 1.5 cm area of eschar/skin breakdown at the lower sacral region. There was no active bleeding. Has a large area of induration/cellulitis around this. No vesicles. No pustules. No crepitus felt. I am unable to express any drainage from the area. Neuro General: patient alert and patient awake Course Orders Ordered: ED Orders 09/14/24 19:26 CT abdomen pelvis w con Stat 09/14/24 19:30 Complete Blood Count AUTO DIFF Stat Comprehensive Metabolic Panel Stat Lactate (Lactic Acid) Stat Lipase Stat Procalcitonin Stat Prothrombin Time INR Stat 09/14/24 20:27 Blood Culture Stat 09/14/24 21:10 Consult to General Surgery Stat Discontinued Medications Vancomycin HCl (Vancomycin) 1,000 mg in 200 mls @ 200 mls/hr IV NOW ONE Stop: 09/14/24 20:27 Last Admin: 09/14/24 21:01 Dose: 200 mls/hr Documented By: RADHA Ceftriaxone Sodium 1,000 mg/ (Sodium Chloride) 100 mls @ 200 mls/hr IV NOW ONE Stop: 09/14/24 19:29 Last Infusion: 09/14/24 21:06 Dose: Infused Documented By: Admin: 09/14/24 20:30 Dose: 200 mls/hr Documented By: RADHA Clindamycin Phosphate (Cleocin) 900 mg in 50 mls @ 50 mls/hr IV NOW ONE Stop: 09/14/24 21:40 Last Admin: 09/14/24 21:02 Dose: 50 mls/hr Documented By: RADHA Vital Signs Vital signs: Vital Signs - 8 hr 09/14/24 19:09 09/14/24 19:09 09/14/24 19:11 Temperature 98.4 F Pulse Rate 91 H 104 H Respiratory Rate 26 H Blood Pressure 165/85 H 165/85 H Pulse Oximetry 95 96 Oxygen Delivery Method Room Air 09/14/24 19:30 09/14/24 19:31 09/14/24 19:31 Temperature Pulse Rate 105 H 105 H Respiratory Rate 34 H 31 H Blood Pressure 157/74 H Pulse Oximetry 93 94 Oxygen Delivery Method 09/14/24 20:30 Temperature Pulse Rate 103 H Respiratory Rate 18 Blood Pressure Pulse Oximetry 96 Oxygen Delivery Method MDM - Skin/Abscess/Foreign Bdy Lab Data Attestation: I reviewed the patient's lab results. 09/14/24 19:30 09/14/24 19:30 Labs: Lab Results 09/14/24 Range/Units 19:30 WBC 15.2 H (4.5-11.0) X10^3/uL RBC 4.20 L (4.5-5.9) X10^6/uL Hgb 13.8 (13.5-17.5) g/dL Hct 41.0 (41-53) % MCV 97.4 (80-100) fL MCH 32.7 (26-34) PG MCHC 33.6 (30-36) % RDW 14.8 (11.6-14.8) % Plt Count 138 L (150-400) X10^3/uL Neut % (Auto) 87.5 H (50-75) % Lymph % (Auto) 4.0 L (25-40) % [place] % (Auto) 7.7 (3-14) % Eos % (Auto) 0.5 L (2-4) % Baso % (Auto) 0.3 (0-2) % Neut # (Auto) 50223 H (3715-3851) /uL Lymph # (Auto) 600 L (3351-1664) /uL [place] # (Auto) 1200 H (0-900) /uL Eos # (Auto) 100 (0-450) /uL Baso # (Auto) 100 (0-100) /uL PT 66.7 H (9.4-12.5) SECONDS INR 6.2 H* (0.9-1.3) Sodium 136 L (137-145) mmol/L Potassium 3.5 (3.4-5.1) mmol/L Chloride 98 (98-107) mmol/L Carbon Dioxide 33 H (22-32) mmol/L BUN 18 (9-20) mg/dL Creatinine 1.12 (0.66-1.25) mg/dL Estimated GFR > 60 (>60) mL/min BUN/Creatinine Ratio 16.1 (6-22) Glucose 110 (80-110) mg/dL Lactate 1.8 (0.7-2.1) mmol/L Calcium 8.1 L (8.4-10.2) mg/dL Total Bilirubin 1.5 H (0.2-1.3) mg/dL AST 39 (17-59) IU/L ALT 30 (<50) IU/L Alkaline Phosphatase 81 (38-126) U/L Total Protein 6.7 (6.3-8.2) g/dL Albumin 3.4 L (3.5-5.0) g/dL Globulin 3.3 (1.7-4.1) g/dL Albumin/Globulin Ratio 1.0 (1.0-2.8) Lipase 29 (23-300) U/L Procalcitonin 0.185 (<0.5) ng/mL Imaging Data CT scan - abdomen/pelvis: Radiologist's Impression: PROCEDURE: CT ABDOMEN PELVIS W CON INDICATIONS: Sacral cellulitis eval for deep abscess TECHNIQUE: After the administration of intravenous contrast, axial sections acquired from the lung bases to the pubic symphysis. Coronal and sagittal reformats were performed. For radiation dose reduction, the following was used: automated exposure control, adjustment of mA and/or kV according to patient size. COMPARISON: None. FINDINGS: Image quality: Diagnostic. Lower Chest: Small hiatal hernia. ABDOMEN: Liver: No solid mass. Gallbladder: No radiopaque gallstones or wall thickening. Biliary ducts: No biliary dilation. Pancreas: No ductal dilation. Spleen: Size is within normal limits. Adrenal Glands: No adrenal nodules. Kidneys and Ureters: No hydronephrosis. No solid mass. No complex renal cystic lesion which requires follow up. Stomach and Bowel: Normal colonic caliber, without significant wall thickening. Peritoneum: No abnormal intraperitoneal fluid. No free air. Ventral Wall: No significant ventral hernia. Abdominal Nodes: No retroperitoneal or mesenteric adenopathy by size criteria. Vessels: Aorta and inferior vena cava are normal in size. PELVIS: Pelvic Organs: Mild prostatomegaly. Bladder: Mild bladder wall thickening. Pelvic Nodes: No enlarged lymph nodes. Miscellaneous: Midline sacral cellulitis with a gas-forming organism. with extensive air present within the subcutaneous tissues without a fluid collection noted. However, the air is relatively contained. There is extension to near the coccyx. There is no CT evidence of osteomyelitis of the coccyx. Bones: No aggressive osseous abnormality. Bilateral total hip arthroplasties. Lumbar degenerative change. IMPRESSION: There is sacral cellulitis with a gas-forming organism. The course of the gas is fairly localized. There is no associated abscess. The gas collection extends to near the coccyx. There is no CT evidence of osteomyelitis. Comment: Consider surgical consultation for potential treatment of cellulitis with a gas-forming organism. MDM Narrative Medical decision making narrative: Patient does have a supratherapeutic INR. Unsure whether or not this is related to the medication he was taking were his current infection. He was an obvious infection in his lower sacral/upper buttocks area. He was unable to express any drainage here in the ER. No crepitus felt. He was nontoxic appearing. Is alert and oriented. In his baseline respiratory status. CT scan does not show a drainable abscess but does show air in the tissues. Did consider gas-forming organism such as necrotizing fasciitis. I did discuss the case with Dr. Roberts on-call for General surgery who stated that the patient could be admitted to the medicine service and he would follow along as an inpatient. Cultures were obtained. Antibiotics started. Discussed the case with Dr. Luna hospitalist on-call who will admit for further evaluation and treatment. Discussed the need for admission with the patient. He expressed understanding and agreement as well. Discharge Plan Departure Patient Disposition: Admitted As Inpatient Clinical Impression: Cellulitis, Supratherapeutic INR Admit Date/Time: 09/14/24 21:43 Admit Provider: Robi Johansen
[2024-09-14 19:42] LABS: Add Manual Diff / Slide Review NO; Basophils Absolute Auto 100 /uL (0-100); Basophils Percent Auto 0.3 % (0-2); Eosinophils Absolute Auto 100 /uL (0-450); Eosinophils Percent Auto 0.5 % (2-4); Hemoglobin 13.8 g/dL (13.5-17.5); Lymphocytes Absolute Auto 600 /uL (1100-4500); Mean Corpuscular HGB Conc 33.6 % (30-36); Mean Corpuscular Hemoglobin 32.7 PG (26-34); Mean Corpuscular Volume 97.4 fL (80-100); Monocytes Absolute Auto 1200 /uL (0-900); Monocytes Percent Auto 7.7 % (3-14); Neutrophils Absolute Auto 13300 /uL (1500-7000); Neutrophils Percent Auto 87.5 % (50-75); Platelet Count 138 X10^3/uL (150-400); Red Cell Distribution Width 14.8 % (11.6-14.8); White Blood Cell Count 15.2 X10^3/uL (4.5-11.0)
[2024-09-14 19:49] LABS: Prothrombin Time 66.7 SECONDS (9.4-12.5)
[2024-09-14 19:52] LABS: Lactate (Lactic Acid) 1.8 mmol/L (0.7-2.1)
[2024-09-14 19:53] LABS: Alanine Aminotransferase 30 IU/L (<50); Albumin 3.4 g/dL (3.5-5.0); Alkaline Phosphatase 81 U/L (38-126); Aspartate Aminotransferase 39 IU/L (17-59); BUN Creatinine Ratio 16.1 (6-22); Bilirubin Total 1.5 mg/dL (0.2-1.3); Blood Urea Nitrogen 18 mg/dL (9-20); Calcium 8.1 mg/dL (8.4-10.2); Carbon Dioxide 33 mmol/L (22-32); Chloride 98 mmol/L (98-107); Estimated Glomerular Filt Rate > 60 mL/min (>60); Globulin 3.3 g/dL (1.7-4.1); Glucose 110 mg/dL (80-110); HEMOLYSIS < 15 (0-50); Lipase 29 U/L (23-300); Potassium 3.5 mmol/L (3.4-5.1); Sodium 136 mmol/L (137-145); Total Protein 6.7 g/dL (6.3-8.2)
[2024-09-14 19:56] LABS: INR 6.2 (0.9-1.3)
[2024-09-14 20:10] LABS: Procalcitonin 0.185 ng/mL (<0.5)
[2024-09-14] MEDS: cefTRIAXone 1,000 MG in SODIUM CHLORIDE 0.9% 100 ML 200 MG IV (20:30)
[2024-09-14] MEDS: VANCOMYCIN 1,000 MG/200 ML PIGGYBACK 200 MG IV (21:01)
[2024-09-14] MEDS: CLINDAMYCIN 900 MG/50 ML PIGGYBACK 50 MG IV (21:02)
[2024-09-15] VITALS (58 sets, daily range): BP systolic 76–117; BP diastolic 30–78; PULSE 60–119; RESP 12–44; TEMP 36.2–36.8; O2SAT 73–100
--- NOTE | 2024-09-15 | PM.HP.1 ---
History of Present Illness History of Present Illness Date Patient Seen: 09/14/24 Time Patient Seen: 23:00 Chief complaint: sent by rosalie Toro on buttocks Narrative: 83 y/o with PMH of HTN, A-fib, COPD, smoking, BPH, developed buttock abscess several days ago after he fell and apparently injured that area. It partially self drained in the meantime. He was seen earlier in walk-in clinic and from there referred to ED. Admitted for IV abx and possibly I&D by surgery. [facility] Medical History (Updated 09/15/24 @ 05:05 by Robi Manning MD) Osteoarthritis Pedal edema CHF (congestive heart failure) PVC's (premature ventricular contractions) RBBB (right bundle branch block) Current every day smoker CAD (coronary artery disease) HLD (hyperlipidemia) HTN (hypertension) MICHAELA on CPAP COPD (chronic obstructive pulmonary disease) Afib Surgical History History of total left hip replacement Hx of repair of left rotator cuff History of total left knee replacement History of total right knee replacement Status post repair of nerve Hx of bilateral cataract extraction History of carpal tunnel surgery of left wrist History of arthroscopy of right shoulder Hx of hernia repair Social History household members: family Smoking Status: Current every day smoker alcohol intake: former Meds Home Medications and Allergies Home Medications Medication Instructions Recorded Confirmed Type albuterol sulfate 90 mcg/actuation 2 puff inhalation Q4-6H PRN 07/15/21 09/14/24 History aerosol inhaler Shortness Of Breath amlodipine 5 mg tablet 5 mg PO QAM 07/15/21 09/14/24 History baclofen 10 mg tablet 10 mg PO Q8H PRN Muscle Spasm 07/15/21 09/15/24 History fluticasone 250 mcg-salmeterol 50 1 inh inhalation BID 07/15/21 09/15/24 History mcg/dose blistr powdr for inhalation (Advair Diskus) gabapentin 300 mg tablet 300 mg PO BID 07/15/21 09/15/24 History latanoprost 0.005 % eye drops 1 drp ophthalmic (eye) DIRECTED 07/15/21 09/15/24 History lisinopril 40 mg tablet 40 mg PO DAILY 07/15/21 09/15/24 History metoprolol tartrate 25 mg tablet 25 mg PO BID 07/15/21 09/15/24 History ibuprofen 200 mg capsule 400 mg PO Q6H PRN Pain 07/18/21 09/15/24 History tiotropium bromide 18 mcg capsule 1 cap inhalation DAILY 07/18/21 09/15/24 History with inhalation device (Spiriva with HandiHaler) warfarin 2 mg tablet 2 mg PO DIRECTED 07/18/21 09/15/24 History atorvastatin 40 mg tablet 40 mg PO DAILY 07/27/23 09/15/24 History montelukast 10 mg tablet 10 mg PO DAILY 07/27/23 09/15/24 History tamsulosin 0.4 mg capsule 0.4 mg PO DAILY 07/27/23 09/15/24 History azithromycin 250 mg capsule 250 mg PO DAILY 09/14/24 09/15/24 History Allergies Allergy/AdvReac Type Severity Reaction Status Date / Time No Known Drug Allergies Allergy Verified 09/14/24 19:14 Review of Systems Constitutional Comments: w/o fever, chills or sweats Cardiovascular Comments: w/o chest pain Respiratory Comments: chronic shortness of breath Musculoskeletal Comments: buttock pain Exam Vital Signs (past 8 hours): - 09/14/24 19:09 09/14/24 19:09 09/14/24 19:11 Temperature 98.4 F Pulse Rate 91 H 104 H Respiratory Rate 26 H Blood Pressure 165/85 H 165/85 H Pulse Oximetry 95 96 Oxygen Delivery Method Room Air Oxygen Flow Rate 09/14/24 19:30 09/14/24 19:31 09/14/24 19:31 Temperature Pulse Rate 105 H 105 H Respiratory Rate 34 H 31 H Blood Pressure 157/74 H Pulse Oximetry 93 94 Oxygen Delivery Method Oxygen Flow Rate 09/14/24 20:30 09/14/24 21:00 09/14/24 21:30 Temperature Pulse Rate 103 H 109 H 107 H Respiratory Rate 18 22 29 H Blood Pressure Pulse Oximetry 96 96 91 Oxygen Delivery Method Oxygen Flow Rate 09/14/24 22:00 09/14/24 22:45 09/14/24 23:45 Temperature 97.1 F L Pulse Rate 107 H 61 Respiratory Rate 31 H 18 Blood Pressure 128/57 L Pulse Oximetry 94 92 Oxygen Delivery Method Nasal Cannula Nasal Cannula Oxygen Flow Rate 1 0 Oxygen Delivery Method Nasal Cannula Oxygen Flow Rate 0 Const Other: in no distress HENMT Other: normocephalic Resp Other: normal respiratory effort Cardio Other: irregular Skin Other: 1.5 x 1.5 cm area of eschar/skin breakdown at the lower sacral region with large surrounding area of induration Objective Labs 09/14/24 19:30 09/14/24 19:30 Labs: Laboratory Results - last 24 hr 09/14/24 19:30 WBC 15.2 H RBC 4.20 L Hgb 13.8 Hct 41.0 MCV 97.4 MCH 32.7 MCHC 33.6 RDW 14.8 Plt Count 138 L Neut % (Auto) 87.5 H Lymph % (Auto) 4.0 L [place] % (Auto) 7.7 Eos % (Auto) 0.5 L Baso % (Auto) 0.3 Neut # (Auto) 38720 H Lymph # (Auto) 600 L [place] # (Auto) 1200 H Eos # (Auto) 100 Baso # (Auto) 100 PT 66.7 H INR 6.2 H* Sodium 136 L Potassium 3.5 Chloride 98 Carbon Dioxide 33 H BUN 18 Creatinine 1.12 Estimated GFR > 60 BUN/Creatinine Ratio 16.1 Glucose 110 Lactate 1.8 Calcium 8.1 L Total Bilirubin 1.5 H AST 39 ALT 30 Alkaline Phosphatase 81 Total Protein 6.7 Albumin 3.4 L Globulin 3.3 Albumin/Globulin Ratio 1.0 Lipase 29 Procalcitonin 0.185 Assessment & Plan Assessment and plan (1) Cellulitis: Status: Acute (2) Afib: Status: Acute (3) COPD (chronic obstructive pulmonary disease): Qualifiers: COPD type: emphysema Emphysema type: centrilobular Qualified Code(s): J43.2 - Centrilobular emphysema Status: Acute (4) BPH (benign prostatic hyperplasia): Status: Acute (5) Glaucoma: Status: Acute (6) CKD stage 3a, GFR 45-59 ml/min: Status: Acute Assessment & Plan narrative: Cellulitis / Abscess - vancomycin - not septic - wound culture taken in walk-in clinic and BC sent from ED - surgery will consult for possible incision and drainage, preferably with lower INR A-fib - INR 6, off Coumadin - consider reversal if indicated debridement - metoprolol CKD stage 3a - at baseline HTN - Metoprolol 25 mg bid - Lisinopril 40 m and Norvasc 5 mg daily on hold COPD - Pulmicort, Atrovent (at home on Advair and Spiriva), Singulair and albuterol BPH - Flomax Glaucoma - latanoprost Time-Based Coding :: [TOTAL MINUTES] spent with patient and on the chart (including review of chart, obtaining history, exam, reviewing outside data, placing orders, documenting exam and treatment plan, and counseling patient) on [DATE].
[2024-09-15] MEDS: OXYCODONE IR 10 MG TABLET PO ×3 (00:57→09:58)
[2024-09-15] MEDS: ALBUTEROL 2.5 MG/3 ML NEB (ADULT) INH (00:57)
[2024-09-15] MEDS: VANCOMYCIN 1,000 MG/200 ML PIGGYBACK 140 MG IV (03:00)
[2024-09-15 05:16] LABS: Add Manual Diff / Slide Review NO; Basophils Absolute Auto 100 /uL (0-100); Basophils Percent Auto 0.4 % (0-2); Eosinophils Absolute Auto 200 /uL (0-450); Eosinophils Percent Auto 1.4 % (2-4); Hematocrit 37.8 % (41-53); Hemoglobin 12.6 g/dL (13.5-17.5); Lymphocytes Absolute Auto 700 /uL (1100-4500); Lymphocytes Percent Auto 5.6 % (25-40); Mean Corpuscular HGB Conc 33.4 % (30-36); Mean Corpuscular Hemoglobin 32.3 PG (26-34); Mean Corpuscular Volume 96.7 fL (80-100); Monocytes Absolute Auto 1200 /uL (0-900); Monocytes Percent Auto 9.9 % (3-14); Neutrophils Absolute Auto 9900 /uL (1500-7000); Neutrophils Percent Auto 82.7 % (50-75); Platelet Count 131 X10^3/uL (150-400); Red Blood Cell Count 3.91 X10^6/uL (4.5-5.9); Red Cell Distribution Width 14.8 % (11.6-14.8)
[2024-09-15 05:35] LABS: BUN Creatinine Ratio 15.8 (6-22); Blood Urea Nitrogen 16 mg/dL (9-20); Calcium 7.6 mg/dL (8.4-10.2); Carbon Dioxide 33 mmol/L (22-32); Chloride 100 mmol/L (98-107); Estimated Glomerular Filt Rate > 60 mL/min (>60); Glucose 100 mg/dL (80-110); HEMOLYSIS < 15 (0-50); Potassium 3.3 mmol/L (3.4-5.1); Sodium 134 mmol/L (137-145)
[2024-09-15 05:36] LABS: Prothrombin Time 84.4 SECONDS (9.4-12.5)
[2024-09-15 05:45] LABS: INR 7.9 (0.9-1.3)
[2024-09-15] MEDS: CLINDAMYCIN 900 MG in SODIUM CHLORIDE 0.9% 100 ML 106 MG IV ×3 (05:56→21:35)
[2024-09-15] MEDS: ALBUTEROL/IPRATROPIUM 3 ML AMPUL INH ×4 (06:27→19:48)
--- NOTE | 2024-09-15 07:48 | P.PN_ITS ---
Subjective Subjective Interval history: Summary: 83 y/o with PMH of HTN, A-fib, COPD, smoking, BPH, developed buttock abscess several days ago after he fell and apparently injured that area. It partially self drained in the meantime. He was seen earlier in walk-in clinic and from there referred to ED. Admitted for IV abx and possibly I&D by surgery. S: He feels much better today. He was still has buttock pain in his had spontaneous drainage there. The antibiotics have helped, he feels generally much less weak and more alert. Exam Vital Signs (past 8 hours): - 09/15/24 01:02 09/15/24 01:48 09/15/24 05:00 Temperature 97.3 F L 97.3 F L Pulse Rate 119 H 89 Respiratory Rate 18 18 Blood Pressure 104/53 L 98/49 L Pulse Oximetry 100 95 Oxygen Delivery Method Room Air Oxygen Flow Rate 0 0 Oxygen Delivery Method Room Air Oxygen Flow Rate 0 Narrative Exam Narrative: NAD, alert and oriented. Fluent speech. Lungs are clear, normal rate and effort. Heart is regular, no murmur gallop or rub. Abdomen is soft, non distended. Extremities are free of edema. Objective Imaging CT scan - abdomen: Radiologist's impression: There is sacral cellulitis with a gas-forming organism. The course of the gas is fairly localized. There is no associated abscess. The gas collection extends to near the coccyx. There is no CT evidence of osteomyelitis. Comment: Consider surgical consultation for potential treatment of cellulitis with a gas-forming organism. Labs 09/15/24 04:29 09/15/24 04:29 Labs: Laboratory Results - last 24 hr 09/14/24 09/15/24 19:30 04:29 WBC 15.2 H 12.0 H RBC 4.20 L 3.91 L Hgb 13.8 12.6 L Hct 41.0 37.8 L MCV 97.4 96.7 MCH 32.7 32.3 MCHC 33.6 33.4 RDW 14.8 14.8 Plt Count 138 L 131 L Neut % (Auto) 87.5 H 82.7 H Lymph % (Auto) 4.0 L 5.6 L [place] % (Auto) 7.7 9.9 Eos % (Auto) 0.5 L 1.4 L Baso % (Auto) 0.3 0.4 Neut # (Auto) 42291 H 9900 H Lymph # (Auto) 600 L 700 L [place] # (Auto) 1200 H 1200 H Eos # (Auto) 100 200 Baso # (Auto) 100 100 PT 66.7 H 84.4 H D INR 6.2 H* 7.9 H* Sodium 136 L 134 L Potassium 3.5 3.3 L Chloride 98 100 Carbon Dioxide 33 H 33 H BUN 18 16 Creatinine 1.12 1.01 Estimated GFR > 60 > 60 BUN/Creatinine Ratio 16.1 15.8 Glucose 110 100 Lactate 1.8 Calcium 8.1 L 7.6 L Total Bilirubin 1.5 H AST 39 ALT 30 Alkaline Phosphatase 81 Total Protein 6.7 Albumin 3.4 L Globulin 3.3 Albumin/Globulin Ratio 1.0 Lipase 29 Procalcitonin 0.185 PFSH Medical History Osteoarthritis Pedal edema CHF (congestive heart failure) PVC's (premature ventricular contractions) RBBB (right bundle branch block) Current every day smoker CAD (coronary artery disease) HLD (hyperlipidemia) HTN (hypertension) MICHAELA on CPAP COPD (chronic obstructive pulmonary disease) Afib Surgical History History of total left hip replacement Hx of repair of left rotator cuff History of total left knee replacement History of total right knee replacement Status post repair of nerve Hx of bilateral cataract extraction History of carpal tunnel surgery of left wrist History of arthroscopy of right shoulder Hx of hernia repair Social History household members: family Smoking Status: Current every day smoker alcohol intake: former Assessment & Plan Assessment & Plan narrative: 1. Buttock Cellulitis / Abscess, POA. - vancomycin - not septic - wound culture taken in walk-in clinic and BC sent from ED - surgery will consult for possible incision and drainage, preferably with lower INR 2. A-fib - INR 6, off Coumadin - consider reversal if indicated debridement - metoprolol 3. CKD stage 3a - at baseline 4. HTN - Metoprolol 25 mg bid - Lisinopril 40 m and Norvasc 5 mg daily on hold 5. COPD - Pulmicort, Atrovent (at home on Advair and Spiriva), Singulair and albuterol 6. BPH - Flomax 7. Glaucoma - latanoprost PLAN: -continue antibiotics -discuss with surgery. Anticipate I&D. -obtain cultures. Time-Based Coding :: [TOTAL MINUTES] spent with patient and on the chart (including review of chart, obtaining history, exam, reviewing outside data, placing orders, documenting exam and treatment plan, and counseling patient) on [DATE].
[2024-09-15] MEDS: TAMSULOSIN 0.4 MG CAPSULE PO (08:15)
[2024-09-15] MEDS: METOPROLOL IR 25 MG TABLET PO ×2 (08:15→21:35)
[2024-09-15] MEDS: POTASSIUM CHLORIDE 20 MEQ TAB 40 MEQ PO (08:15)
[2024-09-15] MEDS: GABAPENTIN 300 MG CAPSULE PO ×2 (08:15→21:35)
[2024-09-15] MEDS: MONTELUKAST 10 MG TABLET PO (08:15)
[2024-09-15] MEDS: BUDESONIDE 0.5 MG/2 ML NEB INH ×2 (09:12→19:48)
--- NOTE | 2024-09-15 13:07 | CM.DANOTE ---
DCP Assessment Note: Pt is a 83yo male, resident of [place], is admitted for a buttock Pt lives in a house with his nephew who is developmentally disabled. Pt's Primary Care Provider is Dr. Jp Begum and insurance is [employer] Medicare and Medicaid. Reviewed chart and team rounds for pt's medical status and initial discharge needs. Per hospitalist, plan of care includes IV antibiotics and surgery consulted for possible I&D - it has been reported that this will be coordinated outpatient. DCP met w/patient at bedside; introduced self and role. Patient was found in bed, alert and oriented, cooperative with assessment. Pt confirmed living situation with nephew and being in the care of a BRENDA caregiver, Cheryl, who is alloted 20hours a month with patient. Pt reports Cheryl goes to the home 2x/week. Pt expressed preference in discharging home when cleared, still awaiting to speak with surgeon on possible I&D at time of assessment. Pt open to possible home health if available and recommended at discharge. Pt states he is typically independent at baseline and drives himself to appointments except since this abcess, he has not been able to drive a lot. Pt states caregiver might be able to transport pt home depending on her schedule. Confirmed that nephew does not drive. DCP confirmed that pt does not have Medicaid Transport benefit. Plan: Anticipating discharge home when medically cleared, possibly with caregiver. CM team will follow closely for coordination of discharge plans. ADRIÁN Inman Discharge Planning/Care Management CM Discharge Assessment Start: 09/15/24 13:04 Freq: Status: Active Protocol: Document 09/15/24 13:04 MW (Rec: 09/15/24 13:06 MW [id number]) Discharge Planning Assessment Assigned Bid Writer CALVIN Goodwin DPGUEVARA/Assigned Designee Name Chris Peterson Contact Information [phone] Advance Directives? No History Provided By Patient,Medical Record Has Patient been admitted in last 30 No days? Prior Living Arrangements Mobile home Comment [place] Household Members family Type of transporation used prior to Drives own vehicle admit Independent with ADL's Yes Is patient alert and oriented? Yes Caregiver for Another No DME Already Rented / Owned FWW / Walker,Nebulizer Patient/Family Preference Home with Home Health Discharge Plan Home Additional Comment Medicaid transport Whiteboard Updated in Patient Room with Yes name and ext. # of Bid Writer Comment [phone] Review Status In Process Please Provide Date Initial DC 09/15/24 Assessment Was Performed Next Review Type Continued Stay Review
--- NOTE | 2024-09-15 13:25 | CM.DANOTE ---
DCP Assessment Note: Pt is a 83yo male, resident of [place], is admitted for a buttock Pt lives in a house with his nephew who is developmentally disabled. Pt's Primary Care Provider is Dr. Jp Begum and insurance is [employer] Medicare and Medicaid. Reviewed chart and team rounds for pt's medical status and initial discharge needs. Per hospitalist, plan of care includes IV antibiotics and surgery consulted for possible I&D. DCP met w/patient at bedside; introduced self and role. Patient was found in bed, alert and oriented, cooperative with assessment. Pt confirmed living situation with nephew and being in the care of a BRENDA caregiver, Cheryl, who is alloted 20hours a month with patient. Pt reports Cheryl goes to the home 2x/week. Pt expressed preference in discharging home when cleared, still awaiting to speak with surgeon on possible I&D at time of assessment. Pt open to possible home health if available and recommended at discharge. Pt states he is typically independent at baseline and drives himself to appointments except since this abcess, he has not been able to drive a lot. Pt states caregiver might be able to transport pt home depending on her schedule. Confirmed that nephew does not drive. DCP confirmed that pt does not have Medicaid Transport benefit. Plan: Anticipating discharge home when medically cleared, possibly with caregiver. CM team will follow closely for coordination of discharge plans. ADRIÁN Inman Discharge Planning/Care Management CM Discharge Assessment Start: 09/15/24 13:04 Freq: Status: Active Protocol: Document 09/15/24 13:04 MW (Rec: 09/15/24 13:06 MW [id number]) Discharge Planning Assessment Assigned Cork Slabs Sawyer CALVIN Goodwin DPOA/Assigned Designee Name Chris Peterson Contact Information [phone] Advance Directives? No History Provided By Patient,Medical Record Has Patient been admitted in last 30 No days? Prior Living Arrangements Mobile home Comment [place] Household Members family Type of transporation used prior to Drives own vehicle admit Independent with ADL's Yes Is patient alert and oriented? Yes Caregiver for Another No DME Already Rented / Owned FWW / Walker,Nebulizer Patient/Family Preference Home with Home Health Discharge Plan Home Additional Comment Medicaid transport Whiteboard Updated in Patient Room with Yes name and ext. # of Cork Slabs Sawyer Comment [phone] Review Status In Process Please Provide Date Initial DC 09/15/24 Assessment Was Performed Next Review Type Continued Stay Review
[2024-09-15] MEDS: SODIUM CHLORIDE 0.9% 1,000 ML 1000 ML IV ×2 (14:35→16:30)
[2024-09-15] MEDS: VANCOMYCIN 2,000 MG/400 ML PIGGYBACK 200 MG IV (15:10)
[2024-09-15 15:39] LABS: Hematocrit 35.9 % (41-53); Mean Corpuscular HGB Conc 33.5 % (30-36); Mean Corpuscular Hemoglobin 32.6 PG (26-34); Mean Corpuscular Volume 97.2 fL (80-100); Platelet Count 141 X10^3/uL (150-400); Red Blood Cell Count 3.69 X10^6/uL (4.5-5.9); White Blood Cell Count 10.6 X10^3/uL (4.5-11.0)
[2024-09-15 15:52] LABS: Alanine Aminotransferase 24 IU/L (<50); Albumin 2.7 g/dL (3.5-5.0); Alkaline Phosphatase 61 U/L (38-126); Aspartate Aminotransferase 30 IU/L (17-59); BUN Creatinine Ratio 16.9 (6-22); Bilirubin Total 0.9 mg/dL (0.2-1.3); Blood Urea Nitrogen 20 mg/dL (9-20); Calcium 7.3 mg/dL (8.4-10.2); Carbon Dioxide 32 mmol/L (22-32); Chloride 100 mmol/L (98-107); Estimated Glomerular Filt Rate > 60 mL/min (>60); Globulin 2.8 g/dL (1.7-4.1); Glucose 124 mg/dL (80-110); HEMOLYSIS < 15 (0-50); Potassium 3.6 mmol/L (3.4-5.1); Sodium 135 mmol/L (137-145); Total Protein 5.5 g/dL (6.3-8.2)
[2024-09-15 15:53] LABS: Lactate (Lactic Acid) 1.4 mmol/L (0.7-2.1)
[2024-09-15] MEDS: LIDOCAINE 1% 20 ML 3 ML SUBCUT (16:30)
--- NOTE | 2024-09-15 16:32 | DI.RAD.S_ITS ---
PROCEDURE: XR CHEST 1V INDICATIONS: PICC placement TECHNIQUE: One view of the chest was acquired. COMPARISON: [facility], , CHEST 2 VIEW, 09/05/2014, 15:07. FINDINGS: Surgical changes and devices: Right-sided PICC line is in place. The tip fades imperceptibly over the cardiac shadow. Lungs and pleura: Coarse interstitial markings. Mixed interstitial and alveolar opacities bilaterally. No visible pneumothorax or significant pleural effusion. Mediastinum: Moderate cardiomegaly. Bones and chest wall: No suspicious bony lesions. Overlying soft tissues appear unremarkable. IMPRESSION: Right-sided PICC line tip is not well seen overlying the right heart margin, probably near the cavoatrial junction. Cardiomegaly. Bilateral interstitial and alveolar opacities. Dictated by: Arely Gibbs M.D. on 09/15/2024 at 17:44 Approved by: Arely Gibbs M.D. on 09/15/2024 at 17:46
[2024-09-15] MEDS: MORPHINE 4 MG/ML INJ IV (16:46)
[2024-09-15] MEDS: LORazepam 2 MG/ML INJ IV (16:47)
--- NOTE | 2024-09-15 17:04 | PM.PROC.1 ---
Procedures Date/Time Date of procedure: 09/15/24 Time of procedure: 17:04 General Procedure description: Incision and drainage of left gluteal cleft abscess Complications: none Abscess I/D Site: hank-rectal (Buttock abscess) Side (if applicable): right Sedation/analgesia: other (Morphine and Ativan) Anesthetic used: lidocaine 1% (6 mL) Technique: incised with #11 blade Amount of fluid (mL): 10 Irrigation: No Packing used?: iodoform
--- NOTE | 2024-09-15 17:05 | P.CONS_ITS ---
History of Present Illness Consult details Date Patient Seen: 09/15/24 Time Patient Seen: 17:06 Chief complaint: sent by rosalie Toro on buttocks Reason for consult: buttock abscess Requesting provider: [place] Narrative: 83-year-old white male presents with hypotension and abscess on the right side of his gluteal cleft concerning for abscess with soft tissue necrosis Meds Home Medications and Allergies Home Medications Medication Instructions Recorded Confirmed Type albuterol sulfate 90 mcg/actuation 2 puff inhalation Q4-6H PRN 07/15/21 09/14/24 History aerosol inhaler Shortness Of Breath amlodipine 5 mg tablet 5 mg PO QAM 07/15/21 09/14/24 History baclofen 10 mg tablet 10 mg PO Q8H PRN Muscle Spasm 07/15/21 09/15/24 History fluticasone 250 mcg-salmeterol 50 1 inh inhalation BID 07/15/21 09/15/24 History mcg/dose blistr powdr for inhalation (Advair Diskus) gabapentin 300 mg tablet 300 mg PO BID 07/15/21 09/15/24 History latanoprost 0.005 % eye drops 1 drp ophthalmic (eye) DIRECTED 07/15/21 09/15/24 History lisinopril 40 mg tablet 40 mg PO DAILY 07/15/21 09/15/24 History metoprolol tartrate 25 mg tablet 25 mg PO BID 07/15/21 09/15/24 History ibuprofen 200 mg capsule 400 mg PO Q6H PRN Pain 07/18/21 09/15/24 History tiotropium bromide 18 mcg capsule 1 cap inhalation DAILY 07/18/21 09/15/24 History with inhalation device (Spiriva with HandiHaler) warfarin 2 mg tablet 2 mg PO DIRECTED 07/18/21 09/15/24 History atorvastatin 40 mg tablet 40 mg PO DAILY 07/27/23 09/15/24 History montelukast 10 mg tablet 10 mg PO DAILY 07/27/23 09/15/24 History tamsulosin 0.4 mg capsule 0.4 mg PO DAILY 07/27/23 09/15/24 History azithromycin 250 mg capsule 250 mg PO DAILY 09/14/24 09/15/24 History bupropion HCl 150 mg 24 hr tablet, 300 mg PO DAILY 09/15/24 09/15/24 History extended release Allergies Allergy/AdvReac Type Severity Reaction Status Date / Time No Known Drug Allergies Allergy Verified 09/14/24 19:14 Exam Vital Signs (past 8 hours): - 09/15/24 09:12 09/15/24 14:16 09/15/24 14:21 Temperature Pulse Rate 84 60 Respiratory Rate 14 Blood Pressure 87/49 L 98/36 L Pulse Oximetry 94 Oxygen Delivery Method Room Air Oxygen Flow Rate 09/15/24 14:29 09/15/24 15:04 09/15/24 15:08 Temperature 97.1 F L Pulse Rate 89 89 Respiratory Rate Blood Pressure 89/57 L 76/30 L 98/59 L Pulse Oximetry 90 L Oxygen Delivery Method Oxygen Flow Rate 0 09/15/24 15:13 09/15/24 15:20 09/15/24 15:27 Temperature Pulse Rate 80 90 Respiratory Rate Blood Pressure 87/54 L 82/41 L 88/40 L Pulse Oximetry Oxygen Delivery Method Oxygen Flow Rate 09/15/24 15:59 09/15/24 15:59 09/15/24 16:00 Temperature Pulse Rate 88 92 H 92 H Respiratory Rate 22 29 H 33 H Blood Pressure Pulse Oximetry 95 73 L 74 L Oxygen Delivery Method Room Air Oxygen Flow Rate 09/15/24 16:01 09/15/24 16:01 Temperature Pulse Rate 93 H Respiratory Rate 22 Blood Pressure 97/56 L Pulse Oximetry 95 Oxygen Delivery Method Oxygen Flow Rate Oxygen Delivery Method Room Air Oxygen Flow Rate 0 Narrative Exam Narrative: Gen: NAD, sitting comfortably in bed, appears well HEENT: Sclera are anicteric, head is normocephalic and atraumatic, trachea is midline. CV: RRR, no JVD Resp: clear to auscultation bilaterally, equal chest wall movement bilaterally Abd: soft, nontender, normoactive bowel sounds Ext: no edema, full range of motion Neuro: Cranial nerves II-XII grossly intact, no focal deficits Skin: Ischemic appearing skin and ecchymosis with cellulitis along the right side of the gluteal cleft measuring 4 cm long by 2 cm wide Objective Labs 09/15/24 15:30 09/15/24 15:30 Labs: Laboratory Results - last 24 hr 09/14/24 09/15/24 09/15/24 19:30 04:29 15:30 WBC 15.2 H 12.0 H 10.6 RBC 4.20 L 3.91 L 3.69 L Hgb 13.8 12.6 L 12.0 L Hct 41.0 37.8 L 35.9 L MCV 97.4 96.7 97.2 MCH 32.7 32.3 32.6 MCHC 33.6 33.4 33.5 RDW 14.8 14.8 15.0 H Plt Count 138 L 131 L 141 L Neut % (Auto) 87.5 H 82.7 H Lymph % (Auto) 4.0 L 5.6 L [place] % (Auto) 7.7 9.9 Eos % (Auto) 0.5 L 1.4 L Baso % (Auto) 0.3 0.4 Neut # (Auto) 55479 H 9900 H Lymph # (Auto) 600 L 700 L [place] # (Auto) 1200 H 1200 H Eos # (Auto) 100 200 Baso # (Auto) 100 100 PT 66.7 H 84.4 H D INR 6.2 H* 7.9 H* Sodium 136 L 134 L 135 L Potassium 3.5 3.3 L 3.6 Chloride 98 100 100 Carbon Dioxide 33 H 33 H 32 BUN 18 16 20 Creatinine 1.12 1.01 1.18 Estimated GFR > 60 > 60 > 60 BUN/Creatinine Ratio 16.1 15.8 16.9 Glucose 110 100 124 H Lactate 1.8 1.4 Calcium 8.1 L 7.6 L 7.3 L Total Bilirubin 1.5 H 0.9 AST 39 30 ALT 30 24 Alkaline Phosphatase 81 61 Total Protein 6.7 5.5 L Albumin 3.4 L 2.7 L Globulin 3.3 2.8 Albumin/Globulin Ratio 1.0 1.0 Lipase 29 Procalcitonin 0.185 REPLACED BY [facility] Medical History Osteoarthritis Pedal edema CHF (congestive heart failure) PVC's (premature ventricular contractions) RBBB (right bundle branch block) Current every day smoker CAD (coronary artery disease) HLD (hyperlipidemia) HTN (hypertension) MICHAELA on CPAP COPD (chronic obstructive pulmonary disease) Afib Surgical History History of total left hip replacement Hx of repair of left rotator cuff History of total left knee replacement History of total right knee replacement Status post repair of nerve Hx of bilateral cataract extraction History of carpal tunnel surgery of left wrist History of arthroscopy of right shoulder Hx of hernia repair Social History household members: family Tobacco & Substance Use Smoking Status: Current every day smoker alcohol intake: former Assessment & Plan Assessment and plan (1) Abscess of buttock, right: Status: Acute Assessment & Plan narrative: Limited incision and drainage performed with packing due to patient's Coumadin use and supratherapeutic INR. We will need packing twice per day. Culture sent to direct antibiotic therapy. Time-Based Coding :: [TOTAL MINUTES] spent with patient and on the chart (including review of chart, obtaining history, exam, reviewing outside data, placing orders, documenting exam and treatment plan, and counseling patient) on [DATE]. PROFEE Charge Codes Inpatient or Observation consultation: 24420 (Modifier 25)
[2024-09-15 17:32] LABS: PTT Partial Thromboplastin Tim 57 SECONDS (25.1-36.5)
[2024-09-15 17:36] LABS: Prothrombin Time 108.3 SECONDS (9.4-12.5)
[2024-09-15 17:37] LABS: INR 10.2 (0.9-1.3)
[2024-09-15] MEDS: CEFEPIME 2 GM in SODIUM CHLORIDE 0.9% 100 ML IV (18:03)
[2024-09-15] MEDS: metroNIDAZOLE 500 MG/100 ML PIGGYBACK 100 MG IV ×2 (18:04→22:54)
[2024-09-15] MEDS: FLUMAZENIL 0.5 MG/5 ML MDV 0.2 MG IV (18:10)
[2024-09-15] MEDS: PHYTONADIONE (VIT K1) 5 MG in SODIUM CHLORIDE 0.9% 100 ML 201 MG IV (18:34)
--- NOTE | 2024-09-15 18:46 | PC.NURSE ---
Pt in chair after lunch, reported dizziness. Face pale. Pt assisted to bed. Pt hypotensive, provider notified, new orders received (See MAR). Persistent hypotension, provider notified. New IV started, blood obtained and sent to lab. Pt transferred from rm 222 to rm 230 ICU. Second bolus completed, BP WDL. Bedside procedure by Dr. Fowler (See procedure note). Vitals remained WDL during. Pt drowsy but rousable. Pt then difficult to stir even with sternal rub. Provider notified. New orders received. Pt rousable but drowsy, A&Ox2-3, denies pain. BP remains WDL. Care ongoing.
[2024-09-15 19:14] LABS: MRSA (Nasal) PCR NOT DETECTED (Not Detect)
[2024-09-16] VITALS (73 sets, daily range): BP systolic 85–138; BP diastolic 50–77; PULSE 81–105; RESP 10–38; TEMP 36–36.9; O2SAT 76–98
[2024-09-16] MEDS: CEFEPIME 2 GM in SODIUM CHLORIDE 0.9% 100 ML IV ×2 (04:43→16:29)
[2024-09-16 04:48] LABS: Hematocrit 36.1 % (41-53); Hemoglobin 12.2 g/dL (13.5-17.5); Mean Corpuscular HGB Conc 33.8 % (30-36); Mean Corpuscular Hemoglobin 32.9 PG (26-34); Mean Corpuscular Volume 97.2 fL (80-100); Platelet Count 138 X10^3/uL (150-400); Red Blood Cell Count 3.72 X10^6/uL (4.5-5.9); Red Cell Distribution Width 15.1 % (11.6-14.8); White Blood Cell Count 8.9 X10^3/uL (4.5-11.0)
[2024-09-16 05:00] LABS: Alanine Aminotransferase 22 IU/L (<50); Albumin 2.9 g/dL (3.5-5.0); Alkaline Phosphatase 71 U/L (38-126); Aspartate Aminotransferase 25 IU/L (17-59); BUN Creatinine Ratio 16.2 (6-22); Bilirubin Total 0.7 mg/dL (0.2-1.3); Blood Urea Nitrogen 19 mg/dL (9-20); Calcium 7.4 mg/dL (8.4-10.2); Carbon Dioxide 30 mmol/L (22-32); Chloride 104 mmol/L (98-107); Estimated Glomerular Filt Rate > 60 mL/min (>60); Glucose 103 mg/dL (80-110); HEMOLYSIS < 15 (0-50); Potassium 3.9 mmol/L (3.4-5.1); Sodium 137 mmol/L (137-145); Total Protein 5.9 g/dL (6.3-8.2)
[2024-09-16 05:10] LABS: INR 2.4 (0.9-1.3); Prothrombin Time 26.5 SECONDS (9.4-12.5)
[2024-09-16] MEDS: ALBUTEROL/IPRATROPIUM 3 ML AMPUL INH (05:40)
[2024-09-16] MEDS: BUDESONIDE 0.5 MG/2 ML NEB INH ×2 (05:40→20:51)
[2024-09-16] MEDS: metroNIDAZOLE 500 MG/100 ML PIGGYBACK 100 MG IV ×2 (05:41→11:52)
--- NOTE | 2024-09-16 05:57 | RT ---
Pt off hospital CPAP unit at 0530 this morning. He used CPAP t/o the night (total of approx. 7 hours).
[2024-09-16] MEDS: CLINDAMYCIN 900 MG in SODIUM CHLORIDE 0.9% 100 ML 106 MG IV ×3 (06:05→21:47)
[2024-09-16] MEDS: HYDROCODONE/ACET 5/325 TABLET 1 TAB PO (06:48)
--- NOTE | 2024-09-16 08:04 | PM.PNPO.1 ---
Subjective Subjective Date Patient Seen: 09/16/24 Time Patient Seen: 08:04 Interval history: Patient did not have continued bleeding overnight. He had some systolic pressures in the 90s, but nothing as low as before the incision and drainage. Exam Vital Signs (past 8 hours): - 09/16/24 00:15 09/16/24 00:15 09/16/24 00:30 Temperature Pulse Rate 89 90 Respiratory Rate 17 20 Blood Pressure 90/52 L Pulse Oximetry 95 95 Oxygen Delivery Method Oxygen Flow Rate 2 Fraction of Inspired Oxygen 09/16/24 00:30 09/16/24 00:45 09/16/24 00:45 Temperature Pulse Rate 93 H Respiratory Rate 19 Blood Pressure 90/53 L 87/50 L Pulse Oximetry 96 Oxygen Delivery Method Oxygen Flow Rate 2 Fraction of Inspired Oxygen 09/16/24 01:00 09/16/24 01:00 09/16/24 01:15 Temperature Pulse Rate 91 H Respiratory Rate 10 L Blood Pressure 100/55 L 104/53 L Pulse Oximetry 95 Oxygen Delivery Method Oxygen Flow Rate 2 Fraction of Inspired Oxygen 09/16/24 01:15 09/16/24 01:30 09/16/24 01:30 Temperature Pulse Rate 88 91 H Respiratory Rate 19 17 Blood Pressure 107/55 L Pulse Oximetry 97 96 Oxygen Delivery Method Oxygen Flow Rate 1.5 1.5 Fraction of Inspired Oxygen 09/16/24 01:45 09/16/24 01:45 09/16/24 02:00 Temperature Pulse Rate 101 H 85 Respiratory Rate 23 22 Blood Pressure 113/63 Pulse Oximetry 96 93 Oxygen Delivery Method Oxygen Flow Rate 1.5 Fraction of Inspired Oxygen 09/16/24 02:00 09/16/24 02:15 09/16/24 02:15 Temperature Pulse Rate 90 Respiratory Rate 20 Blood Pressure 97/50 L 100/55 L Pulse Oximetry 91 Oxygen Delivery Method Oxygen Flow Rate Fraction of Inspired Oxygen 09/16/24 02:30 09/16/24 02:30 09/16/24 02:45 Temperature Pulse Rate 88 97 H Respiratory Rate 21 28 H Blood Pressure 101/57 L Pulse Oximetry 88 L 93 Oxygen Delivery Method Oxygen Flow Rate Fraction of Inspired Oxygen 09/16/24 02:45 09/16/24 03:00 09/16/24 03:01 Temperature Pulse Rate 95 H Respiratory Rate 38 H Blood Pressure 118/77 124/65 Pulse Oximetry 87 L Oxygen Delivery Method Oxygen Flow Rate 1.5 Fraction of Inspired Oxygen 09/16/24 03:01 09/16/24 03:16 09/16/24 03:16 Temperature Pulse Rate 92 H 89 Respiratory Rate 33 H 22 Blood Pressure 111/64 Pulse Oximetry 98 86 L Oxygen Delivery Method Oxygen Flow Rate 1.5 1.5 Fraction of Inspired Oxygen 09/16/24 03:30 09/16/24 03:30 09/16/24 03:45 Temperature Pulse Rate 85 Respiratory Rate 21 Blood Pressure 108/64 123/72 Pulse Oximetry 92 Oxygen Delivery Method Oxygen Flow Rate 1.5 Fraction of Inspired Oxygen 09/16/24 03:45 09/16/24 04:00 09/16/24 04:00 Temperature Pulse Rate 88 Respiratory Rate 26 H Blood Pressure 114/55 L Pulse Oximetry 93 Oxygen Delivery Method CPAP Oxygen Flow Rate 1.5 Fraction of Inspired Oxygen 09/16/24 04:00 09/16/24 04:15 09/16/24 04:15 Temperature Pulse Rate 85 90 Respiratory Rate 23 22 Blood Pressure 103/65 Pulse Oximetry 95 93 Oxygen Delivery Method Oxygen Flow Rate 1.5 Fraction of Inspired Oxygen 09/16/24 04:30 09/16/24 04:30 09/16/24 04:45 Temperature Pulse Rate 89 Respiratory Rate 21 Blood Pressure 108/65 109/60 Pulse Oximetry 94 Oxygen Delivery Method Oxygen Flow Rate Fraction of Inspired Oxygen 09/16/24 04:45 09/16/24 05:00 09/16/24 05:00 Temperature 96.8 F L Pulse Rate 86 89 Respiratory Rate 20 28 H Blood Pressure Pulse Oximetry 94 94 Oxygen Delivery Method Oxygen Flow Rate Fraction of Inspired Oxygen 09/16/24 05:00 09/16/24 05:15 09/16/24 05:15 Temperature Pulse Rate 88 Respiratory Rate 23 Blood Pressure 112/68 134/63 Pulse Oximetry 92 Oxygen Delivery Method Oxygen Flow Rate Fraction of Inspired Oxygen 09/16/24 05:30 09/16/24 05:30 09/16/24 05:40 Temperature Pulse Rate 98 H 92 H Respiratory Rate 23 22 Blood Pressure 126/62 Pulse Oximetry 86 L 89 L Oxygen Delivery Method Room Air Oxygen Flow Rate 0 Fraction of Inspired Oxygen 21 09/16/24 05:45 09/16/24 05:45 09/16/24 06:00 Temperature Pulse Rate 87 97 H Respiratory Rate 23 27 H Blood Pressure 110/58 L Pulse Oximetry 89 L 91 Oxygen Delivery Method Oxygen Flow Rate 2 Fraction of Inspired Oxygen 09/16/24 06:01 09/16/24 06:01 09/16/24 06:02 Temperature Pulse Rate 98 H 92 H Respiratory Rate 27 H 22 Blood Pressure 117/62 Pulse Oximetry 90 L 92 Oxygen Delivery Method Nasal Cannula Oxygen Flow Rate 2 1 Fraction of Inspired Oxygen 24 09/16/24 06:15 09/16/24 06:15 09/16/24 06:30 Temperature Pulse Rate 96 H Respiratory Rate 23 22 Blood Pressure 111/51 L 90/59 L Pulse Oximetry 95 93 Oxygen Delivery Method Oxygen Flow Rate 2 2 Fraction of Inspired Oxygen 09/16/24 06:30 09/16/24 06:46 09/16/24 06:46 Temperature Pulse Rate 97 H 99 H Respiratory Rate Blood Pressure 115/61 Pulse Oximetry 90 L 94 Oxygen Delivery Method Oxygen Flow Rate 2 2 Fraction of Inspired Oxygen 09/16/24 07:00 09/16/24 07:00 Temperature Pulse Rate 105 H Respiratory Rate 29 H Blood Pressure 117/64 Pulse Oximetry 92 Oxygen Delivery Method Oxygen Flow Rate 2 Fraction of Inspired Oxygen Fraction of Inspired Oxygen 24 SaO2/FiO2 Ratio 383 Oxygen Delivery Method Nasal Cannula Oxygen Flow Rate 2 Narrative Exam Narrative: Packing is in place Objective Labs 09/16/24 04:39 09/16/24 04:39 Labs: Laboratory Results - last 24 hr 09/15/24 09/15/24 09/16/24 15:30 17:47 04:39 WBC 10.6 8.9 RBC 3.69 L 3.72 L Hgb 12.0 L 12.2 L Hct 35.9 L 36.1 L MCV 97.2 97.2 MCH 32.6 32.9 MCHC 33.5 33.8 RDW 15.0 H 15.1 H Plt Count 141 L 138 L PT 108.3 H D 26.5 H D INR 10.2 H* 2.4 H APTT 57 H Sodium 135 L 137 Potassium 3.6 3.9 Chloride 100 104 Carbon Dioxide 32 30 BUN 20 19 Creatinine 1.18 1.17 Estimated GFR > 60 > 60 BUN/Creatinine Ratio 16.9 16.2 Glucose 124 H 103 Lactate 1.4 Calcium 7.3 L 7.4 L Total Bilirubin 0.9 0.7 AST 30 25 ALT 24 22 Alkaline Phosphatase 61 71 Total Protein 5.5 L 5.9 L Albumin 2.7 L 2.9 L Globulin 2.8 3.0 Albumin/Globulin Ratio 1.0 1.0 Nasal Screen MRSA (PCR) Not detected [facility] Medical History Osteoarthritis Pedal edema CHF (congestive heart failure) PVC's (premature ventricular contractions) RBBB (right bundle branch block) Current every day smoker CAD (coronary artery disease) HLD (hyperlipidemia) HTN (hypertension) MICHAELA on CPAP COPD (chronic obstructive pulmonary disease) Afib Surgical History History of total left hip replacement Hx of repair of left rotator cuff History of total left knee replacement History of total right knee replacement Status post repair of nerve Hx of bilateral cataract extraction History of carpal tunnel surgery of left wrist History of arthroscopy of right shoulder Hx of hernia repair Social History household members: family Smoking Status: Current every day smoker alcohol intake: former Assessment & Plan Post-op Postoperative Procedures: Incision and drainage of right gluteal abscess 09/15 Postoperative day: 1 Postoperative status: doing well Postoperative status narrative: Continue b.i.d. packing changes. Discussed with the nursing staff. Cultures preliminarily Gram-positive, continue IV antibiotics Time Spent With Patient Time with patient: less than 15 minutes
[2024-09-16] MEDS: MONTELUKAST 10 MG TABLET PO (08:15)
[2024-09-16] MEDS: GABAPENTIN 300 MG CAPSULE PO ×2 (08:15→20:38)
[2024-09-16] MEDS: TAMSULOSIN 0.4 MG CAPSULE PO (08:15)
[2024-09-16] MEDS: NICOTINE 21 MG PATCH TOP (08:15)
[2024-09-16] MEDS: OXYCODONE IR 10 MG TABLET PO ×2 (09:27→23:11)
--- NOTE | 2024-09-16 09:48 | PC.NURSE ---
Addendum entered by Aidan Dwyer R.N. 09/16/24 18:27: 1830 - Wound repacked, small amount of purulent drainage. Patient tolerated well. Original Note: Per Dr. Fowler: repack wound BID. 30 - Wound repacked, patient tolerated well. Moderate amount of purulent drainage present.
--- NOTE | 2024-09-16 13:36 | CM.DPC ---
DCP Cont: Per Surgeon, pt tolerated I&D and recommending currently 2x day dressing changes/packing and cultures pending. PT ordered and pending. SW met bedside with pt and explained role and discussed the current 2x day packing recommendation and pt confirms that his disabled nephew cannot assist with this and denies anyone else he knows who can assist that much. Pt has [facility] 2x a week for CG but cannot afford twice daily and [facility] likely not available. SW discussed possible option of SNF if pt still needs daily dressing changes and pt confirms he has hx of SNF twice but both were in [place]. SW provided the SNF Choice list and highlighted [facility] contracted facilities. Preference was [facility] but they are not contracted. [facility]. If pt's wound care needs are reduced to only couple times a week, possible chance of home with new HH referral and outpt wound clinic setting. Plan: SW to follow closely for culture results and wound care needs to determine home vs SNF. CALVIN Gan
--- NOTE | 2024-09-16 13:50 | PT.IIE ---
Current Diagnoses Unspecified glaucoma (09/14/24) Unspecified atrial fibrillation (09/14/24) Centrilobular emphysema (09/14/24) Cutaneous abscess of buttock (09/14/24) Cellulitis, unspecified (09/14/24) Chronic kidney disease, stage 3a (09/14/24) Benign prostatic hyperplasia without lower urinary tract symptoms (09/14/24) Surgical History (Last Reviewed 09/16/24 @ 14:40 by Nathan Cosby MD) History of arthroscopy of right shoulder History of carpal tunnel surgery of left wrist History of total left hip replacement History of total left knee replacement History of total right knee replacement Hx of bilateral cataract extraction Hx of hernia repair Hx of repair of left rotator cuff Status post repair of nerve Medical History (Last Reviewed 09/16/24 @ 14:40 by Nathan Cosby MD) Afib CAD (coronary artery disease) CHF (congestive heart failure) COPD (chronic obstructive pulmonary disease) Current every day smoker HLD (hyperlipidemia) HTN (hypertension) MICHAELA on CPAP Osteoarthritis Pedal edema PVC's (premature ventricular contractions) RBBB (right bundle branch block) Physical Therapy Inpatient Evaluation/Re-Eval M1 PT/OT-IP Prior Functional Status Start: 09/16/24 14:32 Freq: NEEDED Status: Active Protocol: Document 09/16/24 13:50 AB (Rec: 09/16/24 14:53 AB [id number]) Medical Review Prior Functional Status Medical History Reviewed Yes Communication able to make needs known Mobility and Gait pt stated that he was modified independent with all mobilities and ambulation using a 4WW (occasionally FWW or SPC) ~ 50% of the time and 50% without AD depending on how he feels per pt Prior Functional Level (Other details) has home O2 but pt stated that he does not use it all the time Social History Household Members family Living Arrangements Mobile home Number of Floors (Floors) One Floor Number of Stairs To Enter/Railing? 5 steps R rail to enter Home Environment Standard Height Toilet Home Equipment Front Wheel Walker,Four Wheel Walker,Straight Cane,Shower Seat with Backrest,Hand Held Shower,Grab Bars Near Toilet, Grab Bars In Shower Additional Social History Comment pt lives with his nephew who is disabled and will not be able to provide physical assistance to pt; pt stated he and his nephew have a caregiver that comes in to assist pt has a hospital bed pt stated that he can call his friend if he needs assistance M2 PT-IP Current Condition Start: 09/16/24 14:32 Freq: NEEDED Status: Active Protocol: Document 09/16/24 13:50 AB (Rec: 09/16/24 14:53 AB [id number]) Physical Therapy Current Condition Current Condition Evaluation Date 09/16/24 Treatment Diagnosis sacral cellulitis; difficulty in walking Onset Date 09/14/24 M3 PT-IP Subjective Start: 09/16/24 14:32 Freq: NEEDED Status: Active Protocol: Document 09/16/24 13:50 AB (Rec: 09/16/24 14:53 AB [id number]) Subjective Physical Therapy Visit Type Type Initial Evaluation Visit Start Time 13:50 Visit Stop Time 14:30 Number of ELIGIBILITY CONSULTANT Visits 0 Physical Therapy Visit Comments Patient Comments agreeable to do PT M4 PT-IP Mobility and Gait Start: 09/16/24 14:32 Freq: NEEDED Status: Active Protocol: Document 09/16/24 13:50 AB (Rec: 09/16/24 14:53 AB [id number]) PT-Bed Mobility Assessment Sit to Supine Sit to Supine Standby Assistance PT-Transfer Assessment Sit to and From Stand Sit to and from Stand Contact Guard Assistance,1 Person Assistance,Use of Upper Extremities Equipment Transfer Assistive Device Gait Belt,Front Wheeled Walker Orthotic/Prosthetic Devices or Brace: No Transfers Transfer Destination Bed Transfer Technique ambulated Transfer Ability Level of Assist Standby Assistance,Contact Guard Assistance,1 Person Assistance Comments Mobility Comments pt sitting on EOB. O2 sat at RA: 80%. put O2 back on pt. O2 sat: 92-96%. pt stated that he took off O2 since he was getting situation to go back and lay down in bed. noted IV pole ~10 ft away from pt. informed pt to ask for assistance due for safety and cord management. obtained PLOF and home set up. pt completed sit to stand CGA. presents with difficulty getting up requiring increase time to complete. pt also tends to pull on FWW to get up . pt ambulated in room using FWW ~ 20 ft SBA to CGA. pt sat back on EOB. (+) SOB. O2 sat : 90%. pt agreed to do stairs/step. positioned step stool and FWW (side rail to simulate stair rail at home) pt able to take a few steps to the step stool CGA. completed up/down step stood using side of FWW as rail CGA. repeated x 2 sets. pt sat back on EOB. O2 sat: 91 %. pt completed sit to supine SBA. positioned pt in bed. call light and table placed within reach. Gait Assessment Gait Gait Assistance Required: Standby Assistance,Contact Guard Assist,1 Person Assist Distance (Feet) 20 Able to Maintain Weight Bearing Status Yes During Gait Assistive Devices Assistive Device Gait Belt,Front Wheeled Walker Orthotic/Prosthetic Devices or Brace: No Gait Deviations General Gait Pattern Antalgic Factors Limiting Gait Function Factors Limiting Gait Function Decreased Activity Tolerance, Decreased Strength,Limited Range of Motion,Pain,Poor Balance,Poor Safety Awareness Stair Climbing Assessment Evaluation Level of Assist On Stairs Contact Guard Assistance Devices Stair Climbing Assistive Devices Right Railing Technique/Endurance Stair Climbing Direction Ascend and Descend Stair Climbing Technique Step to Step Number of Steps Climbed 1 Query Text: Stair Climbing Set # Repetitions (reps) 2 PT-Balance Assessment Sitting Balance and Reactions Static Sitting Balance Ability Normal Dynamic Sitting Balance Ability Good Standing Balance and Reactions Static Standing Balance Ability Fair Dynamic Standing Balance Ability Fair Device Used FWW M5 PT-IP Objective Assessments Start: 09/16/24 14:32 Freq: NEEDED Status: Active Protocol: Document 09/16/24 13:50 AB (Rec: 09/16/24 14:53 AB [id number]) Orientation Orientation/Cognition Level of Alertness Alert Orientation Name,Place,Situation Language Function Ability Hard of Hearing Safety Awareness Decreased Safety Awareness Memory Description No Deficits Noted Gross Range of Motion Lower Extremity ROM Assessment Within Functional Limits Strength Lower Extremity Strength Hip 4-/5 Knee 4-/5 Muscle Tone Muscle Tone WNL Yes M6 PT-IP Treatment Start: 09/16/24 14:32 Freq: NEEDED Status: Active Protocol: Document 09/16/24 13:50 AB (Rec: 09/16/24 14:53 AB [id number]) Physical Therapy Treatment Education Education Provided Safety M7 PT-IP Assessment and Plan Start: 09/16/24 14:32 Freq: NEEDED Status: Active Protocol: Document 09/16/24 13:50 AB (Rec: 09/16/24 14:53 AB [id number]) PT Summary Assessment and Plan Potential Rehabilitation Potential Fair Status of Condition at Evaluation Evolving Summary Impairments Pain,ROM,Strength,Balance, Coordination,Sensation,Tone, Cognition,Bed Mobility, Transfers,Gait,Activity Tolerance Assessment Summary pt is an 83 y/o M who is admitted for sacral cellulitis s/p I&D. pt requiring SBA to CGA with mobility and has decrease activity tolerance with (+) SOB and O2 sat: 90-94 % with activity using 2L/min O2. pt lives with his nephew is disable and will not be able to provide much assistance to pt. pt will need assistance at home and will benefit from home health services. will continue to assess progress. Goals Bed Mobility Goal Independent Transfer Goal Independent,Four Wheeled Walker Gait Goal Independent,Four Wheel Walker Gait Distance 200 Other Goals up/down 5 steps R rail ascending mod I improve ambulation without AD/ LRAD ~ 200 ft mod I Days to Meet Goals 10 Frequency of Treatment Frequency Of Treatment Once a Day Treatment Plan Physical Therapy Treatment Plan Bed Mobility Training,Transfer Training,Gait Training, Therapeutic Exercise,Balance Retraining,Post Op Education, Discharge Planning,Hot or Cold Pack,Neuromuscular Re-ed, Coordination Retraining,Manual Therapy Precautions Other Precautions O2 sat; contact precautions Recommendations To Nursing Amount of Assist Needed 1 Person Assist Discharge Recommendations PT Discharge Recommendations Home with Assistance,Home Health Transportation Needs at Discharge Private Vehicle
--- NOTE | 2024-09-16 14:39 | P.PN_ITS ---
Subjective Subjective Date Patient Seen: 09/16/24 Time Patient Seen: 07:55 Interval history: Summary: 83 y/o with PMH of HTN, A-fib, COPD, smoking, BPH, developed buttock abscess several days ago after he fell and apparently injured that area. It partially self drained in the meantime. He was seen earlier in walk-in clinic and from there referred to ED. Admitted for IV abx and possibly I&D by surgery. S: He underwent incision and drainage last night of his buttock abscess. He states he is feeling better today. Exam Vital Signs (past 8 hours): - 09/16/24 06:46 09/16/24 06:46 09/16/24 07:00 Temperature Pulse Rate 99 H Respiratory Rate Blood Pressure 115/61 117/64 Pulse Oximetry 94 Oxygen Delivery Method Oxygen Flow Rate 2 09/16/24 07:00 09/16/24 07:15 09/16/24 07:15 Temperature Pulse Rate 105 H 99 H Respiratory Rate 29 H 23 Blood Pressure 102/64 Pulse Oximetry 92 93 Oxygen Delivery Method Oxygen Flow Rate 2 09/16/24 07:30 09/16/24 07:30 09/16/24 07:45 Temperature Pulse Rate 98 H Respiratory Rate 19 Blood Pressure 98/54 L 85/52 L Pulse Oximetry 94 Oxygen Delivery Method Oxygen Flow Rate 09/16/24 07:45 09/16/24 08:00 09/16/24 08:00 Temperature Pulse Rate 94 H 96 H Respiratory Rate 22 24 Blood Pressure 92/54 L Pulse Oximetry 91 95 Oxygen Delivery Method Oxygen Flow Rate 09/16/24 08:00 09/16/24 08:30 09/16/24 09:28 Temperature 97.6 F Pulse Rate 89 89 Respiratory Rate 20 23 Blood Pressure Pulse Oximetry 86 L 91 Oxygen Delivery Method Nasal Cannula CPAP Oxygen Flow Rate 09/16/24 09:28 09/16/24 09:31 09/16/24 10:00 Temperature Pulse Rate 91 H Respiratory Rate 27 H Blood Pressure 91/50 L 88/51 L Pulse Oximetry 94 Oxygen Delivery Method Oxygen Flow Rate 09/16/24 10:00 09/16/24 11:00 09/16/24 11:00 Temperature Pulse Rate 82 85 Respiratory Rate 17 18 Blood Pressure 89/52 L Pulse Oximetry 92 88 L Oxygen Delivery Method Oxygen Flow Rate 09/16/24 11:04 09/16/24 11:30 09/16/24 12:00 Temperature 97.6 F Pulse Rate 82 82 95 H Respiratory Rate 19 17 20 Blood Pressure 107/60 Pulse Oximetry 88 L 89 L 92 Oxygen Delivery Method Oxygen Flow Rate 2 09/16/24 12:00 09/16/24 12:00 09/16/24 12:00 Temperature Pulse Rate 86 Respiratory Rate 38 H Blood Pressure 107/60 Pulse Oximetry 91 Oxygen Delivery Method Nasal Cannula CPAP Oxygen Flow Rate 09/16/24 12:30 09/16/24 12:54 09/16/24 13:00 Temperature Pulse Rate 86 85 Respiratory Rate 27 H 21 Blood Pressure 92/58 L Pulse Oximetry 87 L 94 Oxygen Delivery Method Oxygen Flow Rate 2 09/16/24 13:00 09/16/24 13:15 09/16/24 13:30 Temperature Pulse Rate 86 83 85 Respiratory Rate 35 H 20 25 H Blood Pressure Pulse Oximetry 93 94 94 Oxygen Delivery Method Oxygen Flow Rate 2 2 09/16/24 14:00 09/16/24 14:00 Temperature Pulse Rate 87 Respiratory Rate 24 Blood Pressure 107/63 Pulse Oximetry 84 L Oxygen Delivery Method Oxygen Flow Rate Fraction of Inspired Oxygen 24 SaO2/FiO2 Ratio 383 Oxygen Delivery Method Nasal Cannula,CPAP Oxygen Flow Rate 2 Narrative Exam Narrative: NAD, alert and oriented. Fluent speech. Lungs are clear, normal rate and effort. Heart is regular, no murmur gallop or rub. Abdomen is soft, non distended. Extremities are free of edema. Skin with buttock dressing in place, clean, dry and intact Objective Labs 09/16/24 04:39 09/16/24 04:39 Labs: Laboratory Results - last 24 hr 09/15/24 09/15/24 09/16/24 15:30 17:47 04:39 WBC 10.6 8.9 RBC 3.69 L 3.72 L Hgb 12.0 L 12.2 L Hct 35.9 L 36.1 L MCV 97.2 97.2 MCH 32.6 32.9 MCHC 33.5 33.8 RDW 15.0 H 15.1 H Plt Count 141 L 138 L PT 108.3 H D 26.5 H D INR 10.2 H* 2.4 H APTT 57 H Sodium 135 L 137 Potassium 3.6 3.9 Chloride 100 104 Carbon Dioxide 32 30 BUN 20 19 Creatinine 1.18 1.17 Estimated GFR > 60 > 60 BUN/Creatinine Ratio 16.9 16.2 Glucose 124 H 103 Lactate 1.4 Calcium 7.3 L 7.4 L Total Bilirubin 0.9 0.7 AST 30 25 ALT 24 22 Alkaline Phosphatase 61 71 Total Protein 5.5 L 5.9 L Albumin 2.7 L 2.9 L Globulin 2.8 3.0 Albumin/Globulin Ratio 1.0 1.0 Nasal Screen MRSA (PCR) Not detected [facility] Medical History Afib CAD (coronary artery disease) CHF (congestive heart failure) COPD (chronic obstructive pulmonary disease) Current every day smoker HLD (hyperlipidemia) HTN (hypertension) MICHAELA on CPAP Osteoarthritis Pedal edema PVC's (premature ventricular contractions) RBBB (right bundle branch block) Surgical History History of arthroscopy of right shoulder History of carpal tunnel surgery of left wrist History of total left hip replacement History of total left knee replacement History of total right knee replacement Hx of bilateral cataract extraction Hx of hernia repair Hx of repair of left rotator cuff Status post repair of nerve Social History household members: family Smoking Status: Current every day smoker alcohol intake: former Assessment & Plan Assessment & Plan narrative: 1. Buttock Cellulitis / Abscess, POA. - culture negative date - not septic - wound culture taken in walk-in clinic and BC sent from ED -status post incision and drainage 06/25/2025 for surgery 2. A-fib - INR 6, off Coumadin, down to 2.4 today - metoprolol 3. CKD stage 3a - at baseline 4. HTN - Metoprolol 25 mg bid - Lisinopril 40 m and Norvasc 5 mg daily on hold until hypertensive 5. COPD - Pulmicort, Atrovent (at home on Advair and Spiriva), Singulair and albuterol 6. BPH - Flomax 7. Glaucoma - latanoprost PLAN: -narrow antibiotics to IV clindamycin and cefepime -follow cultures. PROFEE Charge codes Subsequent inpatient/observation care: [id number]
[2024-09-16] MEDS: METOPROLOL IR 25 MG TABLET PO (20:38)
[2024-09-17] VITALS (48 sets, daily range): BP systolic 104–172; BP diastolic 53–92; PULSE 77–98; RESP 0–43; TEMP 36.4–36.6; O2SAT 82–97
[2024-09-17] MEDS: BACLOFEN 10 MG TABLET PO (03:38)
[2024-09-17] MEDS: OXYCODONE IR 10 MG TABLET PO (03:38)
--- NOTE | 2024-09-17 04:35 | RT ---
Patient with restless night up and down from bed to chair, not using CPAP as not sleeping.
[2024-09-17] MEDS: CEFEPIME 2 GM in SODIUM CHLORIDE 0.9% 100 ML IV ×2 (04:57→17:05)
[2024-09-17] MEDS: SODIUM CHLORIDE 0.9% FLUSH 10 ML IV (04:58)
[2024-09-17 05:03] LABS: Hematocrit 38.6 % (41-53); Hemoglobin 12.7 g/dL (13.5-17.5); Mean Corpuscular HGB Conc 32.8 % (30-36); Mean Corpuscular Hemoglobin 32.1 PG (26-34); Platelet Count 162 X10^3/uL (150-400); Red Blood Cell Count 3.94 X10^6/uL (4.5-5.9); Red Cell Distribution Width 15.5 % (11.6-14.8); White Blood Cell Count 7.5 X10^3/uL (4.5-11.0)
[2024-09-17] MEDS: CLINDAMYCIN 900 MG in SODIUM CHLORIDE 0.9% 100 ML 106 MG IV ×3 (05:17→21:03)
[2024-09-17 05:19] LABS: INR 1.6 (0.9-1.3); Prothrombin Time 18.4 SECONDS (9.4-12.5)
[2024-09-17 05:26] LABS: Alanine Aminotransferase 23 IU/L (<50); Albumin 3.1 g/dL (3.5-5.0); Alkaline Phosphatase 62 U/L (38-126); Aspartate Aminotransferase 27 IU/L (17-59); BUN Creatinine Ratio 17.6 (6-22); Bilirubin Total 0.7 mg/dL (0.2-1.3); Blood Urea Nitrogen 21 mg/dL (9-20); Calcium 7.6 mg/dL (8.4-10.2); Carbon Dioxide 30 mmol/L (22-32); Chloride 104 mmol/L (98-107); Estimated Glomerular Filt Rate > 60 mL/min (>60); Globulin 3.1 g/dL (1.7-4.1); Glucose 98 mg/dL (80-110); HEMOLYSIS 29 (0-50); Potassium 4.2 mmol/L (3.4-5.1); Sodium 138 mmol/L (137-145); Total Protein 6.2 g/dL (6.3-8.2)
[2024-09-17] MEDS: BUDESONIDE 0.5 MG/2 ML NEB INH ×2 (07:52→20:30)
[2024-09-17] MEDS: ALBUTEROL/IPRATROPIUM 3 ML AMPUL INH ×2 (07:52→20:30)
[2024-09-17] MEDS: TAMSULOSIN 0.4 MG CAPSULE PO (08:10)
[2024-09-17] MEDS: NICOTINE 21 MG PATCH TOP (08:10)
[2024-09-17] MEDS: GABAPENTIN 300 MG CAPSULE PO ×2 (08:10→20:23)
[2024-09-17] MEDS: METOPROLOL IR 25 MG TABLET PO ×2 (08:10→20:24)
[2024-09-17] MEDS: MONTELUKAST 10 MG TABLET PO (08:10)
--- NOTE | 2024-09-17 10:07 | PM.PNPO.1 ---
Subjective Subjective Date Patient Seen: 09/17/24 Time Patient Seen: 10:08 Interval history: Patient is feeling somewhat better. Per nursing staff, there was not significant bleeding between dressing changes. Exam Vital Signs (past 8 hours): - 09/17/24 02:30 09/17/24 03:00 09/17/24 03:00 Temperature Pulse Rate 88 86 Respiratory Rate 28 H 28 H Blood Pressure 133/77 Pulse Oximetry 96 94 Oxygen Delivery Method Oxygen Flow Rate Fraction of Inspired Oxygen 09/17/24 03:30 09/17/24 04:00 09/17/24 04:00 Temperature Pulse Rate 89 90 Respiratory Rate 21 28 H Blood Pressure Pulse Oximetry 94 95 Oxygen Delivery Method Nasal Cannula Oxygen Flow Rate Fraction of Inspired Oxygen 09/17/24 04:01 09/17/24 04:01 09/17/24 04:30 Temperature 97.9 F Pulse Rate 92 H 87 Respiratory Rate 30 H 30 H Blood Pressure 118/53 L Pulse Oximetry 94 94 Oxygen Delivery Method Oxygen Flow Rate 3 2.5 Fraction of Inspired Oxygen 09/17/24 05:00 09/17/24 05:00 09/17/24 05:30 Temperature Pulse Rate 88 88 Respiratory Rate 28 H 30 H Blood Pressure 118/70 Pulse Oximetry 94 94 Oxygen Delivery Method Oxygen Flow Rate 2.5 2.5 Fraction of Inspired Oxygen 09/17/24 06:00 09/17/24 06:00 09/17/24 06:30 Temperature Pulse Rate 84 79 Respiratory Rate 24 18 Blood Pressure 119/59 L Pulse Oximetry 94 93 Oxygen Delivery Method Oxygen Flow Rate 2.5 Fraction of Inspired Oxygen 09/17/24 07:00 09/17/24 07:00 09/17/24 07:30 Temperature Pulse Rate 80 89 Respiratory Rate 25 H 36 H Blood Pressure 104/59 L Pulse Oximetry 97 84 L Oxygen Delivery Method Oxygen Flow Rate Fraction of Inspired Oxygen 09/17/24 07:52 09/17/24 08:00 09/17/24 08:00 Temperature Pulse Rate 94 H 84 Respiratory Rate 20 24 Blood Pressure 111/85 Pulse Oximetry 94 87 L Oxygen Delivery Method Nasal Cannula Oxygen Flow Rate 2 Fraction of Inspired Oxygen 28 09/17/24 08:00 Temperature Pulse Rate Respiratory Rate Blood Pressure Pulse Oximetry Oxygen Delivery Method Nasal Cannula Oxygen Flow Rate Fraction of Inspired Oxygen Fraction of Inspired Oxygen 28 SaO2/FiO2 Ratio 335 Oxygen Delivery Method Nasal Cannula Oxygen Flow Rate 2 Narrative Exam Narrative: Wound is packed Objective Labs 09/17/24 04:50 09/17/24 04:50 Labs: Laboratory Results - last 24 hr 09/17/24 04:50 WBC 7.5 RBC 3.94 L Hgb 12.7 L Hct 38.6 L MCV 98.0 MCH 32.1 MCHC 32.8 RDW 15.5 H Plt Count 162 PT 18.4 H D INR 1.6 H Sodium 138 Potassium 4.2 Chloride 104 Carbon Dioxide 30 BUN 21 H Creatinine 1.19 Estimated GFR > 60 BUN/Creatinine Ratio 17.6 Glucose 98 Calcium 7.6 L Total Bilirubin 0.7 AST 27 ALT 23 Alkaline Phosphatase 62 Total Protein 6.2 L Albumin 3.1 L Globulin 3.1 Albumin/Globulin Ratio 1.0 PFSH Medical History Afib CAD (coronary artery disease) CHF (congestive heart failure) COPD (chronic obstructive pulmonary disease) Current every day smoker HLD (hyperlipidemia) HTN (hypertension) MICHAELA on CPAP Osteoarthritis Pedal edema PVC's (premature ventricular contractions) RBBB (right bundle branch block) Surgical History History of arthroscopy of right shoulder History of carpal tunnel surgery of left wrist History of total left hip replacement History of total left knee replacement History of total right knee replacement Hx of bilateral cataract extraction Hx of hernia repair Hx of repair of left rotator cuff Status post repair of nerve Social History household members: family Smoking Status: Current every day smoker alcohol intake: former Assessment & Plan Post-op Postoperative Procedures: Incision and drainage right gluteal abscess Postoperative day: 2 Postoperative status: doing well Postoperative plan: routine post-op care Time Spent With Patient Time with patient: less than 15 minutes
--- NOTE | 2024-09-17 12:10 | PM.PN.1 ---
Subjective Subjective Date Patient Seen: 09/17/24 Time Patient Seen: 07:55 Interval history: Summary: 83 y/o with PMH of HTN, A-fib, COPD, smoking, BPH, developed buttock abscess several days ago after he fell and apparently injured that area. It partially self drained in the meantime. He was seen earlier in walk-in clinic and from there referred to ED. Admitted for IV abx and possibly I&D by surgery. S: He underwent incision and drainage by surgery on 09/15/2024 of his buttock abscess with ongoing b.i.d. dressing changes. He states he is feeling better today. He lives with his disabled nephew, for whom he is caregiver, and does not feel he will be able to get help at home with dressing changes. Exam Vital Signs (past 8 hours): - 09/17/24 04:30 09/17/24 05:00 09/17/24 05:00 Pulse Rate 87 88 Respiratory Rate 30 H 28 H Blood Pressure 118/70 Pulse Oximetry 94 94 Oxygen Delivery Method Oxygen Flow Rate 2.5 2.5 Fraction of Inspired Oxygen 09/17/24 05:30 09/17/24 06:00 09/17/24 06:00 Pulse Rate 88 84 Respiratory Rate 30 H 24 Blood Pressure 119/59 L Pulse Oximetry 94 94 Oxygen Delivery Method Oxygen Flow Rate 2.5 2.5 Fraction of Inspired Oxygen 09/17/24 06:30 09/17/24 07:00 09/17/24 07:00 Pulse Rate 79 80 Respiratory Rate 18 25 H Blood Pressure 104/59 L Pulse Oximetry 93 97 Oxygen Delivery Method Oxygen Flow Rate Fraction of Inspired Oxygen 09/17/24 07:30 09/17/24 07:52 09/17/24 08:00 Pulse Rate 89 94 H 84 Respiratory Rate 36 H 20 24 Blood Pressure Pulse Oximetry 84 L 94 87 L Oxygen Delivery Method Nasal Cannula Oxygen Flow Rate 2 Fraction of Inspired Oxygen 28 09/17/24 08:00 09/17/24 08:00 09/17/24 08:30 Pulse Rate 89 Respiratory Rate 43 H Blood Pressure 111/85 Pulse Oximetry Oxygen Delivery Method Nasal Cannula Oxygen Flow Rate Fraction of Inspired Oxygen 09/17/24 09:00 09/17/24 09:30 09/17/24 10:00 Pulse Rate 83 85 78 Respiratory Rate 19 24 15 Blood Pressure Pulse Oximetry Oxygen Delivery Method Oxygen Flow Rate Fraction of Inspired Oxygen 09/17/24 10:30 09/17/24 11:00 09/17/24 11:31 Pulse Rate 79 77 86 Respiratory Rate 23 29 H 0 L Blood Pressure Pulse Oximetry Oxygen Delivery Method Oxygen Flow Rate Fraction of Inspired Oxygen 09/17/24 12:00 09/17/24 12:00 09/17/24 12:00 Pulse Rate 84 Respiratory Rate 32 H Blood Pressure 120/67 Pulse Oximetry 89 L Oxygen Delivery Method Nasal Cannula Oxygen Flow Rate Fraction of Inspired Oxygen Fraction of Inspired Oxygen 28 SaO2/FiO2 Ratio 335 Oxygen Delivery Method Nasal Cannula Oxygen Flow Rate 2 Narrative Exam Narrative: NAD, alert and oriented. Fluent speech. Lungs are clear, normal rate and effort. Heart is regular, no murmur gallop or rub. Abdomen is soft, non distended. Extremities are free of edema. Skin with buttock dressing in place, clean, dry and intact, with packing removed and site noted without fluctuance or expressible discharge. Objective Labs 09/17/24 04:50 09/17/24 04:50 Labs: Laboratory Results - last 24 hr 09/17/24 04:50 WBC 7.5 RBC 3.94 L Hgb 12.7 L Hct 38.6 L MCV 98.0 MCH 32.1 MCHC 32.8 RDW 15.5 H Plt Count 162 PT 18.4 H D INR 1.6 H Sodium 138 Potassium 4.2 Chloride 104 Carbon Dioxide 30 BUN 21 H Creatinine 1.19 Estimated GFR > 60 BUN/Creatinine Ratio 17.6 Glucose 98 Calcium 7.6 L Total Bilirubin 0.7 AST 27 ALT 23 Alkaline Phosphatase 62 Total Protein 6.2 L Albumin 3.1 L Globulin 3.1 Albumin/Globulin Ratio 1.0 [facility] Medical History Afib CAD (coronary artery disease) CHF (congestive heart failure) COPD (chronic obstructive pulmonary disease) Current every day smoker HLD (hyperlipidemia) HTN (hypertension) MICHAELA on CPAP Osteoarthritis Pedal edema PVC's (premature ventricular contractions) RBBB (right bundle branch block) Surgical History History of arthroscopy of right shoulder History of carpal tunnel surgery of left wrist History of total left hip replacement History of total left knee replacement History of total right knee replacement Hx of bilateral cataract extraction Hx of hernia repair Hx of repair of left rotator cuff Status post repair of nerve Social History household members: family Smoking Status: Current every day smoker alcohol intake: former Assessment & Plan Assessment & Plan narrative: 1. Buttock Cellulitis / Abscess / Sepsis, POA. - wound culture taken in walk-in clinic and BC sent from ED - culture negative to date, though certainly polymicroial infection present - sepsis on norepineprhine x 24 hours initially - continue IV clindamycine 900mg IV q8 + cefepime 2mg Q12, transition to simplified empiric oral antibiotics at discharge - status post incision and drainage 06/25/2025 for surgery - BID packing changes will require SNF placement 2. A-fib - INR 6.2 on admit, off Coumadin, down to 1.6 today - dosing per pharmacy - metoprolol 3. CKD stage 3a - at baseline 4. HTN - Metoprolol 25 mg bid - Lisinopril 40 m and Norvasc 5 mg daily on hold until hypertensive 5. COPD - Pulmicort, Atrovent (at home on Advair and Spiriva), Singulair and albuterol 6. BPH - Flomax 7. Glaucoma - latanoprost PLAN: -continue antibiotics with IV clindamycin and cefepime -oral antiotics at discharge -follow cultures -discharge planning, likely SNF [facility] Charge codes Subsequent inpatient/observation care: 10395
--- NOTE | 2024-09-17 12:18 | PT-IP ANOTE ---
PT checks in on pt who is sleeping soundly and nsg recommends let pt sleep and check back at another time. Con't PT efforts. Pt is getting up with nsg and has gait trained and performed some steps with PT earlier treatment date.
--- NOTE | 2024-09-17 16:20 | PC.NURSE ---
Addendum entered by Aidan Dwyer R.N. 09/17/24 17:39: Wound packings on 09/16/24 and 09/17/24 performed with [employer] Iodoform Packing Strip. Original Note: Patient up to chair with meals and by request, standby assist. Continues to tolerate BID wound repacking, scant to small purulent drainage from wound. Pain well controlled. Patient understands importance of staying off wound, appropriately asks for repositioning in bed when needed.
[2024-09-17] MEDS: WARFARIN 5 MG TABLET PO (17:05)
[2024-09-17] MEDS: WARFARIN 1 MG TABLET 3 MG PO (17:07)
[2024-09-18] VITALS (9 sets, daily range): BP systolic 118–146; BP diastolic 67–97; PULSE 70–96; RESP 16–24; TEMP 36.5–37; O2SAT 90–97
[2024-09-18] MEDS: CEFEPIME 2 GM in SODIUM CHLORIDE 0.9% 100 ML IV ×2 (05:01→18:12)
[2024-09-18 05:34] LABS: INR 1.7 (0.9-1.3); Prothrombin Time 18.5 SECONDS (9.4-12.5)
[2024-09-18 05:39] LABS: Add Manual Diff / Slide Review NO; Basophils Absolute Auto 100 /uL (0-100); Eosinophils Absolute Auto 200 /uL (0-450); Eosinophils Percent Auto 3.2 % (2-4); Hematocrit 38.4 % (41-53); Hemoglobin 12.8 g/dL (13.5-17.5); Lymphocytes Absolute Auto 1000 /uL (1100-4500); Lymphocytes Percent Auto 13.8 % (25-40); Mean Corpuscular HGB Conc 33.4 % (30-36); Mean Corpuscular Hemoglobin 32.6 PG (26-34); Mean Corpuscular Volume 97.8 fL (80-100); Monocytes Absolute Auto 800 /uL (0-900); Monocytes Percent Auto 11.1 % (3-14); Neutrophils Absolute Auto 5100 /uL (1500-7000); Neutrophils Percent Auto 70.9 % (50-75); Platelet Count 175 X10^3/uL (150-400); Red Blood Cell Count 3.93 X10^6/uL (4.5-5.9); White Blood Cell Count 7.2 X10^3/uL (4.5-11.0)
[2024-09-18 05:44] LABS: BUN Creatinine Ratio 15.7 (6-22); Blood Urea Nitrogen 16 mg/dL (9-20); Calcium 7.8 mg/dL (8.4-10.2); Carbon Dioxide 32 mmol/L (22-32); Chloride 106 mmol/L (98-107); Estimated Glomerular Filt Rate > 60 mL/min (>60); Glucose 91 mg/dL (80-110); HEMOLYSIS 17 (0-50); Potassium 4.1 mmol/L (3.4-5.1); Sodium 139 mmol/L (137-145)
[2024-09-18] MEDS: CLINDAMYCIN 900 MG in SODIUM CHLORIDE 0.9% 100 ML 106 MG IV ×3 (06:29→22:13)
--- NOTE | 2024-09-18 07:23 | PM.PN.1 ---
Subjective Subjective Date Patient Seen: 09/18/24 Interval history: He is seen in his room here to reassess his buttock wound infection. He has packing present at the midline buttock crease. There is discussion today about whether he will be able to go home with caregiver assistance for wound dressing changes or would need senior living facility. The INR is 1.7 with a normal BMP and a white count of 7.2. Exam Vital Signs (past 8 hours): - 09/18/24 00:00 09/18/24 01:34 09/18/24 04:00 Temperature 97.7 F 97.7 F Pulse Rate 83 70 90 Respiratory Rate 24 Blood Pressure 146/85 H 145/76 H Pulse Oximetry 95 97 95 Oxygen Delivery Method Nasal Cannula Oxygen Flow Rate 2 2 2 Fraction of Inspired Oxygen 28 Fraction of Inspired Oxygen 28 SaO2/FiO2 Ratio 346 Oxygen Delivery Method Nasal Cannula Oxygen Flow Rate 2 Narrative Exam Narrative: Alert and oriented x3. No apparent distress. Heart is regular rate and rhythm without murmur Lungs are clear to auscultation bilaterally Extremities have no ankle edema There is packing material present at the upper buttock crease midline area. No florid cellulitis or significant drainage. Objective Labs 09/18/24 05:00 09/18/24 05:00 Labs: Laboratory Results - last 24 hr 09/18/24 05:00 WBC 7.2 RBC 3.93 L Hgb 12.8 L Hct 38.4 L MCV 97.8 MCH 32.6 MCHC 33.4 RDW 15.0 H Plt Count 175 Neut % (Auto) 70.9 Lymph % (Auto) 13.8 L Buchanan % (Auto) 11.1 Eos % (Auto) 3.2 Baso % (Auto) 1.0 Neut # (Auto) 5100 Lymph # (Auto) 1000 L [place]anan # (Auto) 800 Eos # (Auto) 200 Baso # (Auto) 100 PT 18.5 H INR 1.7 H Sodium 139 Potassium 4.1 Chloride 106 Carbon Dioxide 32 BUN 16 Creatinine 1.02 Estimated GFR > 60 BUN/Creatinine Ratio 15.7 Glucose 91 Calcium 7.8 L [facility] Medical History Afib CAD (coronary artery disease) CHF (congestive heart failure) COPD (chronic obstructive pulmonary disease) Current every day smoker HLD (hyperlipidemia) HTN (hypertension) MICHAELA on CPAP Osteoarthritis Pedal edema PVC's (premature ventricular contractions) RBBB (right bundle branch block) Surgical History History of arthroscopy of right shoulder History of carpal tunnel surgery of left wrist History of total left hip replacement History of total left knee replacement History of total right knee replacement Hx of bilateral cataract extraction Hx of hernia repair Hx of repair of left rotator cuff Status post repair of nerve Social History household members: family Smoking Status: Current every day smoker alcohol intake: former Assessment & Plan Assessment & Plan narrative: 1. Buttock Cellulitis / Abscess / Sepsis, POA. - wound culture ws done in the walk-in clinic and BC sent from ED - culture negative to date, though certainly polymicroial infection present - sepsis on norepinephrine x 24 hours initially - continue IV clindamycin 900mg IV q8 + cefepime 2mg Q12, transition to simplified empiric oral antibiotics at discharge - status post incision and drainage 09/15/2024 per surgery - BID packing changes will probably require SNF placement 2. A-fib - INR 6.2 on admit, off Coumadin, down to 1.7 today - dosing per pharmacy - metoprolol 3. CKD stage 3a - at baseline 4. HTN - Metoprolol 25 mg bid - Lisinopril 40 m and Norvasc 5 mg daily on hold until hypertensive 5. COPD - Pulmicort, Atrovent (at home on Advair and Spiriva), Singulair and albuterol 6. BPH - Flomax 7. Glaucoma - latanoprost PLAN: -continue antibiotics with IV clindamycin and cefepime -oral antibiotics at discharge -follow cultures -discharge planning, likely SNF Time-Based Coding :: [TOTAL MINUTES] spent with patient and on the chart (including review of chart, obtaining history, exam, reviewing outside data, placing orders, documenting exam and treatment plan, and counseling patient) on [DATE].
[2024-09-18] MEDS: MONTELUKAST 10 MG TABLET PO (09:00)
[2024-09-18] MEDS: TAMSULOSIN 0.4 MG CAPSULE PO (09:01)
[2024-09-18] MEDS: GABAPENTIN 300 MG CAPSULE PO ×2 (09:01→20:13)
[2024-09-18] MEDS: METOPROLOL IR 25 MG TABLET PO ×2 (09:01→20:14)
[2024-09-18] MEDS: BUDESONIDE 0.5 MG/2 ML NEB INH ×2 (09:10→19:27)
[2024-09-18] MEDS: ALBUTEROL/IPRATROPIUM 3 ML AMPUL INH ×2 (09:11→19:27)
[2024-09-18] MEDS: NICOTINE 21 MG PATCH TOP (09:13)
--- NOTE | 2024-09-18 10:40 | OT.IP.EVAL ---
Current Diagnoses Unspecified glaucoma (09/14/24) Unspecified atrial fibrillation (09/14/24) Centrilobular emphysema (09/14/24) Cutaneous abscess of buttock (09/14/24) Cellulitis, unspecified (09/14/24) Chronic kidney disease, stage 3a (09/14/24) Benign prostatic hyperplasia without lower urinary tract symptoms (09/14/24) Past Medical History (Last Reviewed 09/17/24 @ 12:12 by Nathan Cosby MD) Afib CAD (coronary artery disease) CHF (congestive heart failure) COPD (chronic obstructive pulmonary disease) Current every day smoker HLD (hyperlipidemia) HTN (hypertension) MICHAELA on CPAP Osteoarthritis Pedal edema PVC's (premature ventricular contractions) RBBB (right bundle branch block) Surgical History (Last Reviewed 09/17/24 @ 12:12 by Nathan Cosby MD) History of arthroscopy of right shoulder History of carpal tunnel surgery of left wrist History of total left hip replacement History of total left knee replacement History of total right knee replacement Hx of bilateral cataract extraction Hx of hernia repair Hx of repair of left rotator cuff Status post repair of nerve Occupational Therapy Inpatient Evaluation/Re-Eval M1 PT/OT-IP Prior Functional Status Start: 09/16/24 14:32 Freq: NEEDED Status: Active Protocol: Document 09/18/24 10:48 CGR (Rec: 09/18/24 11:02 CGR [id number]) Medical Review Prior Functional Status Medical History Reviewed Yes Communication able to make needs known Mobility and Gait pt stated that he was modified independent with all mobilities and ambulation using a 4WW (occasionally FWW or SPC) ~ 50% of the time and 50% without AD depending on how he feels per pt Activities of Daily Living and IADL's Pt was IND in self care, handles all of the shopping, bills, and his own medications . Pt does his own laundry. He has a java developer analyst that comes in twice a week for 2 hours each time to do deep cleaning. Prior Functional Level (Other details) has home O2 but pt stated that he does not use it all the time Social History Household Members family Living Arrangements Mobile home Number of Floors (Floors) One Floor Number of Stairs To Enter/Railing? 5 steps R rail to enter Home Environment Standard Height Toilet Home Equipment Front Wheel Walker,Four Wheel Walker,Straight Cane,Manual Wheelchair,Shower Seat with Backrest,Hand Held Shower,Grab Bars Near Toilet,Grab Bars In Shower Employment Status Retired Additional Social History Comment pt lives with his nephew who is disabled and will not be able to provide physical assistance to pt; pt stated he and his nephew have a caregiver that comes in to assist twice a week for 2 hours at a time. pt has a hospital bed pt stated that he can call his friend if he needs assistance M2 OT-IP Current Condition Start: 09/18/24 10:47 Freq: Status: Active Protocol: Document 09/18/24 10:48 CGR (Rec: 09/18/24 11:02 CGR [id number]) Occupational Therapy Current Condition Current Condition Evaluation Date 09/18/24 Treatment Diagnosis buttocks abcess after fall, I&D performed 09/15 Diagnosis Onset Date 09/14/24 M3 OT- IP Subjective and Pain Start: 09/18/24 10:47 Freq: Status: Active Protocol: Document 09/18/24 10:48 CGR (Rec: 09/18/24 11:02 CGR [id number]) OT- Subjective Occupational Therapy Visit Type Type Initial Evaluation Visit Start Time 10:07 Visit Stop Time 10:40 Notes Pt states he just had wound dressing. OT Pain Assessment Pain When Pain Assessed all the ti Pain Present Pain Present Pain Reported Location Generalized Intensity 7 Scale Used Numeric (0 - 10) Management Techniques Distraction,Modification of Treatment,Re-positioning, Timing of Activity with Medications M4 OT- IP ADL's Start: 09/18/24 10:47 Freq: Status: Active Protocol: Document 09/18/24 10:48 CGR (Rec: 09/18/24 11:02 CGR [id number]) OT [id number] Comments OT Self-Feeding Comments not meal time OT ADL-Grooming General Evaluation Grooming Ability Standby Assistance Areas Needing Assistance Retrieving/Set-up of Grooming Items,Combing/Brushing Hair, Face Washing Comments OT Grooming Comments seated in chair OT ADL-Oral Care General Eval Oral Care Ability Minimal Assistance Areas of Assistance Brushing Teeth,Retrieving/Set- Up of Items Comments Oral Care Comments seated in chair OT ADL-Dressing Comments OT Dressing Comments not performed OT ADL-Toileting Comments OT Toileting Comments pt declines need OT ADL-Bathing Comments OT Bathing Comments not performed M5 OT- IP IADL's Start: 09/18/24 10:47 Freq: Status: Active Protocol: Document 09/18/24 10:48 CGR (Rec: 09/18/24 11:02 CGR [id number]) OT-Instrumental Activities of Daily Living Deficits IADL Deficits Identified No Deficits Home Safety Awareness Awareness of Need for Assistance at Home Good Awareness Ability to Problem Solve Emergency Able to Problem Solve Situations Medication Management Medication Management No Deficits Identified Money Management Money Management No Deficits Identified Meal Preparation Meal Preparation Comments Nephew cooks Nail Tech Nail Tech Comments Nephew and java developer analyst performed Driving Driving Comments Pt states he does all of the driving. M6 OT- IP Functional Cognition Start: 09/18/24 10:47 Freq: Status: Active Protocol: Document 09/18/24 10:48 CGR (Rec: 09/18/24 11:02 CGR [id number]) Cognitive Factors Limiting Selfcare Function Cognitive Ability Level of Alertness Alert Patient Orientation Name,Age,Birthday,Date,Year, Day of Week,Place,Situation Attention Span Ability Capable of Focused Attention, Capable of Sustained Attention Ability to Follow Commands Able to Follow One Step Commands with Increased Time, Able to Follow One Step Commands with Repetition Cognitive Comments Cognitive Assessment Comments Pt states that it is October but when corrected pt realizes his mistake. OT- Vision and Hearing OT- Hearing Assessment OT- Hearing Assessment WFL OT- Vision Assessment Visual Acuity Glasses All The Time Visual Attentiveness WFL Occular Pursuits WFL M7 OT- IP Mobility and Balance Start: 09/18/24 10:47 Freq: Status: Active Protocol: Document 09/18/24 10:48 CGR (Rec: 09/18/24 11:02 CGR [id number]) OT- Bed Mobility Assessment Supine to Sit Supine to Sit Assist Standby Assistance,Head of Bed Elevated,Bedrails Scooting Scooting to Edge of Bed Standby Assistance OT-Transfer Assessment Sit to and From Stand Sit to and from Stand Standby Assistance Transfers Transfer Ability Standby Assistance Technique Transfer Destination Bed,Chair Transfer Technique Stand Step Pivot Devices Transfer Assistive Devices Gait Belt Comments Mobility Comments Pt declined use of walker with transfer. OT- Gait Assessment Comments Gait Ability Comments not performed OT- Balance Assessment Sitting Balance and Reactions Static Sitting Balance Ability Good Dynamic Sitting Balance Ability Good M8 OT- IP Objective Assessments Start: 09/18/24 10:47 Freq: Status: Active Protocol: Document 09/18/24 10:48 CGR (Rec: 09/18/24 11:02 CGR [id number]) OT Gross Range of Motion Upper Extremity Range of Motion Assessment Within Functional Limits OT Strength Upper Extremity Strength Assessment Within Functional Limits Comments Strength Comments 5-/5 throughout OT- Coordination Assessment Upper Extremity Finger to Nose Test Within Functional Limits Finger Tapping Test Within Functional Limits OT-Muscle Tone Assessment Muscle Tone WNL Yes OT Sensation Assessment Edema Edema Absent M9 OT- IP Assessment and Plan Start: 09/18/24 10:47 Freq: Status: Active Protocol: Document 09/18/24 10:48 CGR (Rec: 09/18/24 11:02 CGR [id number]) OT Summary Assessment and Plan Potential Rehabilitation Potential Good Analytic Complexity at Evaluation Low Summary OT Impairments Pain,Balance,Functional Mobility,Grooming,Dressing, Toileting,Bathing,Toilet Transfers,Shower Transfers, Activity Tolerance Progress Towards Goals Progressing Toward Goals Assessment Summary Pt presents as a low complexity evaluation s/p admit for fall with buttocks abscess. Pt is having pain that impacts his ability to perform ADLs but most impactful is that pt will need assist with changing dressings to his buttocks and his nephew is unable to do that. Pt states he is open to going to SNF. Currently he is a SBA for transfers and simple ADLs. Recommend d/c to SNF for dressing changes. Goals Grooming Goal Independent Dressing Goal Independent Toileting Goal Independent Bathing Goal Independent Toilet Transfer Goal Independent Shower Transfer Goal Independent Days to Meet Goals 3 Frequency of Treatment Other frequency 5x a week Treatment Plan OT Treatment Plan ADL Training,Functional Mobility,Patient/Family Education,Discharge Planning Other Treatment Recommendations and Next ADLs standing, toielting, Treatment Focus shower if oked d/t buttocks wound. Discharge Recommendations OT Discharge Recommendations SNF Rehab Transportation Needs at Discharge Private Vehicle
--- NOTE | 2024-09-18 13:49 | PT.IPTN ---
Current Diagnoses Unspecified glaucoma (09/14/24) Unspecified atrial fibrillation (09/14/24) Centrilobular emphysema (09/14/24) Cutaneous abscess of buttock (09/14/24) Cellulitis, unspecified (09/14/24) Chronic kidney disease, stage 3a (09/14/24) Benign prostatic hyperplasia without lower urinary tract symptoms (09/14/24) Physical Therapy Treatment Note M2 PT-IP Current Condition Start: 09/16/24 14:32 Freq: NEEDED Status: Active Protocol: Document 09/18/24 13:15 LRN (Rec: 09/18/24 16:30 LRN [id number]) Physical Therapy Current Condition Current Condition Evaluation Date 09/16/24 Treatment Diagnosis sacral cellulitis; difficulty in walking Onset Date 09/14/24 M3 PT-IP Subjective Start: 09/16/24 14:32 Freq: NEEDED Status: Active Protocol: Document 09/18/24 13:15 LRN (Rec: 09/18/24 16:30 LRN [id number]) Subjective Physical Therapy Visit Type Type Treatment Note Visit Start Time 13:15 Visit Stop Time 13:49 Physical Therapy Visit Comments Patient Comments Pt resting peacefully, but easily aroused and pt agreeable to PT. Therapy Pain Assessment Pain When Pain Assessed At Rest Location Generalized Intensity 7 Scale Used Numeric (0 - 10) Buttock Intensity 7 Scale Used Numeric (0 - 10) right hip Intensity 7 Scale Used Numeric (0 - 10) M4 PT-IP Mobility and Gait Start: 09/16/24 14:32 Freq: NEEDED Status: Active Protocol: Document 09/18/24 13:15 LRN (Rec: 09/18/24 16:30 LRN [id number]) PT-Bed Mobility Assessment Supine to Sit Supine to Sit Contact Guard Assistance Sit to Supine Sit to Supine Independent PT-Transfer Assessment Sit to and From Stand Sit to and from Stand Contact Guard Assistance,1 Person Assistance,Use of Upper Extremities Equipment Transfer Assistive Device Gait Belt,Front Wheeled Walker Orthotic/Prosthetic Devices or Brace: No Transfers Transfer Destination Bed Transfer Technique ambulated Transfer Ability Level of Assist Standby Assistance,Contact Guard Assistance,1 Person Assistance Comments Mobility Comments EOB sitting (after head lightheadedness normalized to pt's baseline): On RA - SpO2 - 92%, HR 79. After gait, at EOB sitting: SpO2 attempted, but pt not able to tolerate sitting long enough to obtain reading; therefore pt laid down on R side for SpO2 reading. R sidelie: On RA, SpO2 - 94%, HR 88. Gait Assessment Gait Gait Assistance Required: Standby Assistance,Contact Guard Assist,1 Person Assist Distance (Feet) 40 Able to Maintain Weight Bearing Status Yes During Gait Assistive Devices Assistive Device Gait Belt,Front Wheeled Walker Orthotic/Prosthetic Devices or Brace: No Factors Limiting Gait Function Factors Limiting Gait Function Decreased Activity Tolerance, Decreased Strength,Limited Range of Motion,Pain,Poor Balance,Poor Safety Awareness M5 PT-IP Objective Assessments Start: 09/16/24 14:32 Freq: NEEDED Status: Active Protocol: Document 09/18/24 13:15 LRN (Rec: 09/18/24 16:30 LRN [id number]) Orientation Orientation/Cognition Level of Alertness Alert Orientation Name,Place,Situation Language Function Ability Hard of Hearing Memory Description No Deficits Noted M6 PT-IP Treatment Start: 09/16/24 14:32 Freq: NEEDED Status: Active Protocol: Document 09/18/24 13:15 LRN (Rec: 09/18/24 16:32 LRN [id number]) Physical Therapy Treatment Other Treatments Other Treatment Performed Transfer training sidelie>sit> stand. Gait training with FWW to push walker rather than olive picker walker with each step, and upright posture cuing. (see transfers and gait assessments ) M7 PT-IP Assessment and Plan Start: 09/16/24 14:32 Freq: NEEDED Status: Active Protocol: Document 09/18/24 13:15 LRN (Rec: 09/18/24 16:30 LRN [id number]) PT Summary Assessment and Plan Potential Rehabilitation Potential Fair Status of Condition at Evaluation Evolving Summary Assessment Summary Pt is an 83 yo male w/sacral cellulitis s/p I&D. Pt limited in his ability to sit upright at rest due to Sacral cellulitis s/p I&D. He was limited in mobility/transfers by a feeling of light headedness that persisted, even with SpO2 of 94% & 96% on RA; therefore the pt probably would have tolerated more exercise walking as long as O2 levels remain high. Extra time was needed during transfer transitions for higher SpO2 to stabilize. Goals Bed Mobility Goal Independent Transfer Goal Independent,Four Wheeled Walker Gait Goal Independent,Four Wheel Walker Gait Distance 200 Other Goals up/down 5 steps R rail ascending mod I improve ambulation without AD/ LRAD ~ 200 ft mod I Days to Meet Goals 10 Frequency of Treatment Frequency Of Treatment Once a Day Treatment Plan Physical Therapy Treatment Plan Bed Mobility Training,Transfer Training,Gait Training, Therapeutic Exercise,Balance Retraining,Post Op Education, Discharge Planning,Hot or Cold Pack,Neuromuscular Re-ed, Coordination Retraining,Manual Therapy Other Recommendations and Next Treatment Nursing to ambulate as pt Focus tolerates. Precautions Other Precautions Contact precautions. Recommendations To Nursing Amount of Assist Needed 1 Person Assist Discharge Recommendations PT Discharge Recommendations Home with Assistance,Home Health Other Discharge Recommendations Short stay SNF if sacral cellulitis care is needed. Transportation Needs at Discharge Private Vehicle
--- NOTE | 2024-09-18 14:39 | CM.DPC ---
DCP SNF Planning Per MD, pt with ongoing 2x day packing/wound care and getting close to being able to discharge to likely SNF. Per PT/OT, pt able to mobilize fairly well but feel he could benefit from SNF still. SW reached out to [facility] today and re-sent referral and he reviewed and submitted for insurance auth to see if they will approve SNF stay. Plan: SW to follow closely to determine if [employer] will auth or deny SNF stay for wound care and some strengthening. PASRR needed if insurance approves SNF. CALVIN Gan
[2024-09-18] MEDS: WARFARIN 5 MG, WARFARIN 3 MG 8 MG PO (18:11)
[2024-09-18] MEDS: OXYCODONE IR 10 MG TABLET PO (19:28)
[2024-09-18] MEDS: SODIUM CHLORIDE 0.9% FLUSH 10 ML IV ×3 (20:14→23:57)
[2024-09-18] MEDS: SODIUM CHLORIDE 0.9% 250 ML 21 ML IV (22:14)
[2024-09-19] VITALS (7 sets, daily range): BP systolic 105–128; BP diastolic 61–83; PULSE 61–85; RESP 16–24; TEMP 36.5–36.9; O2SAT 91–97
--- NOTE | 2024-09-19 00:08 | PC.NURSE ---
Patient is alert and oriented and very talkative. Breath sounds diminished but CTA. Was SOB with conversation at shift change but improved after receiving RT treatment and now states usually only SOB with exertion. Normally uses CPAP but not available so O2 per NC placed at bedtime and is on continuous oximetry with sat of 96%. HR irregular with telemetry reading of afib CVR w/BBB. Endoreses nausea but declines antiemetic and requesting snack which was provided. BT present and abdomen is soft. Is able to turn himself in bed and often found sitting on edge of bed but does not try to get out of bed by himself and educated on importance of calling for staff assist if he needs to get out of bed. Is provided SBA and uses walker when out of bed. Has open area on right buttock near gluteal cleft which is currently packed with iodoform. Area around open area is erythematous and area of firmness is approx size of tennis ball. Has chronic numbness to bilateral LE foot to knees; unchanged. 2+ edema present in LE from foot to lower calf. Refuses SCD's so reminded to ankle wave. Fall risk score is high and bed alarm is activated. Patient on hazardous drug isolation precautions. Did complain of generalized chronic pain of 8/10 at start of shift and was medicated with oxycodone with reduction in pain but states he has chronic pain usually in 8/10 range; reminded to request pain meds as he needs.
[2024-09-19] MEDS: CEFEPIME 2 GM in SODIUM CHLORIDE 0.9% 100 ML IV (05:21)
[2024-09-19] MEDS: SODIUM CHLORIDE 0.9% FLUSH 10 ML IV (05:21)
[2024-09-19] MEDS: OXYCODONE IR 10 MG TABLET PO ×2 (05:21→17:32)
[2024-09-19] MEDS: CLINDAMYCIN 900 MG/50 ML PIGGYBACK 50 MG IV (06:04)
[2024-09-19] MEDS: BUDESONIDE 0.5 MG/2 ML NEB INH ×2 (06:20→21:25)
[2024-09-19] MEDS: ALBUTEROL/IPRATROPIUM 3 ML AMPUL INH ×2 (06:20→21:25)
[2024-09-19 06:46] LABS: Prothrombin Time 22.7 SECONDS (9.4-12.5)
--- NOTE | 2024-09-19 07:29 | PM.PN.1 ---
Subjective Subjective Date Patient Seen: 09/19/24 Interval history: He is seen today to follow-up the left buttock abscess/draining wound. He continues to have an area of firm induration and continue drainage. His INR is 2.0. His antibiotics will be changed to vancomycin and Zosyn. The culture did not give any guidance but there is clearly a persisting infection present. Exam Vital Signs (past 8 hours): - 09/19/24 00:00 09/19/24 04:00 09/19/24 06:20 Temperature 97.9 F 97.8 F Pulse Rate 79 76 71 Respiratory Rate 24 18 Blood Pressure 105/61 127/78 Pulse Oximetry 97 97 97 Oxygen Delivery Method Nasal Cannula Oxygen Flow Rate 1 1 1 Fraction of Inspired Oxygen 24 Fraction of Inspired Oxygen 24 SaO2/FiO2 Ratio 404 Oxygen Delivery Method Nasal Cannula Oxygen Flow Rate 1 Narrative Exam Narrative: Alert and oriented x3. No apparent distress. Heart is regular rate and rhythm without murmur Lungs are clear to auscultation bilaterally Extremities have no ankle edema Skin left buttock crease area of pink/redness with firm induration surrounding an opening with packing insert. Objective Labs 09/18/24 05:00 09/18/24 05:00 Labs: Laboratory Results - last 24 hr 09/19/24 06:09 PT 22.7 H INR 2.0 H PFSH Medical History Afib CAD (coronary artery disease) CHF (congestive heart failure) COPD (chronic obstructive pulmonary disease) Current every day smoker HLD (hyperlipidemia) HTN (hypertension) MICHAELA on CPAP Osteoarthritis Pedal edema PVC's (premature ventricular contractions) RBBB (right bundle branch block) Surgical History History of arthroscopy of right shoulder History of carpal tunnel surgery of left wrist History of total left hip replacement History of total left knee replacement History of total right knee replacement Hx of bilateral cataract extraction Hx of hernia repair Hx of repair of left rotator cuff Status post repair of nerve Social History household members: family Smoking Status: Current every day smoker alcohol intake: former Assessment & Plan Assessment & Plan narrative: 1. Buttock Cellulitis / Abscess / Sepsis, POA. - wound culture was done in the walk-in clinic and BC sent from ED - cultures negative to date, though clinically a persisting polymicrobial infection is present - sepsis on norepinephrine x 24 hours initially -on clindamycin plus cefepime until 09/19 when he was changed to vancomycin and Zosyn due to persisting infection evidence. - status post incision and drainage 09/15/2024 per surgery - BID packing changes will probably require SNF placement 2. A-fib - INR 6.2 on admit, off Coumadin, down to 2.0 today - dosing per pharmacy - metoprolol 3. CKD stage 3a - at baseline 4. HTN - Metoprolol 25 mg bid - Lisinopril 40 m and Norvasc 5 mg daily on hold until hypertensive 5. COPD - Pulmicort, Atrovent (at home on Advair and Spiriva), Singulair and albuterol 6. BPH - Flomax 7. Glaucoma - latanoprost PLAN: -due to persistent evidence of infection changed antibiotics on 09/19 to Zosyn and vancomycin. -oral antibiotics at discharge -follow cultures -discharge planning, likely SNF Time-Based Coding :: [TOTAL MINUTES] spent with patient and on the chart (including review of chart, obtaining history, exam, reviewing outside data, placing orders, documenting exam and treatment plan, and counseling patient) on [DATE].
[2024-09-19] MEDS: MONTELUKAST 10 MG TABLET PO (08:44)
[2024-09-19] MEDS: NICOTINE 21 MG PATCH TOP (08:44)
[2024-09-19] MEDS: GABAPENTIN 300 MG CAPSULE PO ×2 (08:44→20:16)
[2024-09-19] MEDS: METOPROLOL IR 25 MG TABLET PO ×2 (08:44→20:17)
[2024-09-19] MEDS: TAMSULOSIN 0.4 MG CAPSULE PO (08:44)
--- NOTE | 2024-09-19 10:56 | PT.IPTN ---
Current Diagnoses Unspecified glaucoma (09/14/24) Unspecified atrial fibrillation (09/14/24) Centrilobular emphysema (09/14/24) Cutaneous abscess of buttock (09/14/24) Cellulitis, unspecified (09/14/24) Chronic kidney disease, stage 3a (09/14/24) Benign prostatic hyperplasia without lower urinary tract symptoms (09/14/24) Physical Therapy Treatment Note M2 PT-IP Current Condition Start: 09/16/24 14:32 Freq: NEEDED Status: Active Protocol: Document 09/19/24 10:43 AB (Rec: 09/19/24 10:56 AB [id number]) Physical Therapy Current Condition Current Condition Evaluation Date 09/16/24 Treatment Diagnosis sacral cellulitis; difficulty in walking Onset Date 09/14/24 M3 PT-IP Subjective Start: 09/16/24 14:32 Freq: NEEDED Status: Active Protocol: Document 09/19/24 10:43 AB (Rec: 09/19/24 10:56 AB [id number]) Subjective Physical Therapy Visit Type Type Treatment Note Visit Start Time 10:04 Visit Stop Time 10:36 Number of SPANISH LECTURER Visits 1 Physical Therapy Visit Comments Patient Comments Patient reports he has been up since 4:30 am, but agreeable to particpate post short conversation regarding benefits of out of bed/ ambulation daily. Therapy Pain Assessment Pain When Pain Assessed At Rest Pain Present Pain Present Pain Reported Location Generalized Intensity 7 M4 PT-IP Mobility and Gait Start: 09/16/24 14:32 Freq: NEEDED Status: Active Protocol: Document 09/19/24 10:43 AB (Rec: 09/19/24 10:56 AB [id number]) PT-Bed Mobility Assessment Supine to Sit Supine to Sit Independent,Contact Guard Assistance Sit to Supine Sit to Supine Independent PT-Transfer Assessment Sit to and From Stand Sit to and from Stand Standby Assistance,1 Person Assistance,Use of Upper Extremities Equipment Transfer Assistive Device Gait Belt,Front Wheeled Walker Orthotic/Prosthetic Devices or Brace: No Transfers Transfer Destination Bed Transfer Technique ambulated Transfer Ability Level of Assist Standby Assistance,1 Person Assistance Gait Assessment Gait Gait Assistance Required: Standby Assistance Distance (Feet) 96 Able to Maintain Weight Bearing Status Yes During Gait Assistive Devices Assistive Device Gait Belt,Front Wheeled Walker Orthotic/Prosthetic Devices or Brace: No Factors Limiting Gait Function Factors Limiting Gait Function Decreased Activity Tolerance, Decreased Strength,Limited Range of Motion,Pain,Poor Balance,Poor Safety Awareness Stair Climbing Assessment Evaluation Level of Assist On Stairs Standby Assistance,Contact Guard Assistance Devices Stair Climbing Assistive Devices Left Railing,Right Railing Technique/Endurance Stair Climbing Direction Ascend and Descend Stair Climbing Technique Step to Step Number of Steps Climbed 1 Stair Climbing Set # Repetitions (reps) 6 PT-Balance Assessment Sitting Balance and Reactions Static Sitting Balance Ability Good Dynamic Sitting Balance Ability Good Standing Balance and Reactions Static Standing Balance Ability Fair Dynamic Standing Balance Ability Fair Device Used FWW M5 PT-IP Objective Assessments Start: 09/16/24 14:32 Freq: NEEDED Status: Active Protocol: Document 09/19/24 10:43 AB (Rec: 09/19/24 10:56 AB [id number]) Orientation Orientation/Cognition Level of Alertness Alert Orientation Name,Place,Situation Language Function Ability Hard of Hearing Memory Description No Deficits Noted Muscle Tone Muscle Tone WNL Yes M6 PT-IP Treatment Start: 09/16/24 14:32 Freq: NEEDED Status: Active Protocol: Document 09/19/24 10:43 AB (Rec: 09/19/24 10:56 AB [id number]) Physical Therapy Treatment Exercises Exercises Ankle Pumps Education Education Provided Safety Other Treatments Other Treatment Performed Hip ext and abd in sidelying M7 PT-IP Assessment and Plan Start: 09/16/24 14:32 Freq: NEEDED Status: Active Protocol: Document 09/19/24 10:43 AB (Rec: 09/19/24 10:56 AB [id number]) PT Summary Assessment and Plan Potential Rehabilitation Potential Good Status of Condition at Evaluation Unstable Summary Assessment Summary Pt is an 83 yo male w/sacral cellulitis s/p I&D. John on room air throughout session 94 % to 98% Ot sat throughout session, initially ambulated 62 feet with FWW CGA stopped, verbal cues for breathing O2 sat 98%, but slow to get reading, Patient then extended amb back to lianne ambulating 96 feet with S. X 3 steps with CGA X 3 with supervision using rail. Rated back and sacral pain 7-8/10 start of session 7 /10 end of session. Bed exit reservation sales agent light within reach. Nursing updated. Goals Bed Mobility Goal Independent Transfer Goal Independent,Four Wheeled Walker Gait Goal Independent,Four Wheel Walker Gait Distance 200 Other Goals up/down 5 steps R rail ascending mod I improve ambulation without AD/ LRAD ~ 200 ft mod I Days to Meet Goals 10 Frequency of Treatment Frequency Of Treatment Once a Day Treatment Plan Physical Therapy Treatment Plan Bed Mobility Training,Transfer Training,Gait Training, Therapeutic Exercise,Balance Retraining,Post Op Education, Discharge Planning,Hot or Cold Pack,Neuromuscular Re-ed, Coordination Retraining,Manual Therapy Other Recommendations and Next Treatment Nursing to ambulate as pt Focus tolerates. Precautions Other Precautions Contact precautions. Recommendations To Nursing Amount of Assist Needed 1 Person Assist Discharge Recommendations PT Discharge Recommendations Home with Assistance,Home Health Other Discharge Recommendations Short stay SNF if sacral cellulitis care is needed. Transportation Needs at Discharge Private Vehicle
[2024-09-19] MEDS: VANCOMYCIN 1,500 MG/300 ML PIGGYBACK 200 MG IV (12:02)
--- NOTE | 2024-09-19 12:32 | CM.DPC ---
DCP SNF Planning: Per MD, pt's wound not healing very quickly even with the IV-Abx and potential for further I&D but MD does not feel pt yet stable for d/c to lower level of care for wound care yet but potential for tomorrow. TU contacted Renetta at [facility] and she confirms that auth was submitted to [facility] and she anticipates hearing back from them soon but no auth obtained yet. TU met bedside with pt and updated on [facility] acceptance and waiting to confirm that insurance will approve SNF auth and pt remains agreeable to [facility] at d/c. If SNF auth denied, further discussion with Surgeon and Hospitalist to determine if pt's wound care needs can be adjusted to allow pt to d/c home with HH RN and outpt wound clinic for packing and wound care needs. PASRR completed in hopeful anticipation of insurance auth for SNF. CALVIN Gan
[2024-09-19] MEDS: PIPERACILLIN/TAZO 3.375 GM in SODIUM CHLORIDE 0.9% 100 ML IV ×2 (14:01→20:16)
--- NOTE | 2024-09-19 16:20 | OT.IP.TRT ---
Current Diagnoses Unspecified glaucoma (09/14/24) Unspecified atrial fibrillation (09/14/24) Centrilobular emphysema (09/14/24) Cutaneous abscess of buttock (09/14/24) Cellulitis, unspecified (09/14/24) Chronic kidney disease, stage 3a (09/14/24) Benign prostatic hyperplasia without lower urinary tract symptoms (09/14/24) Occupational Therapy Treatment Note M2 OT-IP Current Condition Start: 09/18/24 10:47 Freq: Status: Active Protocol: Document 09/18/24 10:48 CGR (Rec: 09/18/24 11:02 CGR [id number]) Occupational Therapy Current Condition Current Condition Evaluation Date 09/18/24 Treatment Diagnosis buttox abcess after fall, I&D performed 09/15 Diagnosis Onset Date 09/14/24 M3 OT- IP Subjective and Pain Start: 09/18/24 10:47 Freq: Status: Active Protocol: Document 09/19/24 16:24 CCC (Rec: 09/19/24 16:29 [facility] [id number]) OT- Subjective Occupational Therapy Visit Type Type Treatment Note Visit Start Time 16:10 Visit Stop Time 16:20 Occupational Therapy Visit Comments Patient Comments Pt states already did all grooming and self care needs eariler. Patient/Caregiver Goals TO go to skilled rehab. OT Pain Assessment Pain When Pain Assessed At Rest Pain Present Pain Present Pain Reported M4 OT- IP ADL's Start: 09/18/24 10:47 Freq: Status: Active Protocol: Document 09/18/24 10:48 CGR (Rec: 09/18/24 11:02 CGR [id number]) OT [id number] Comments OT Self-Feeding Comments not meal time OT ADL-Grooming General Evaluation Grooming Ability Standby Assistance Areas Needing Assistance Retrieving/Set-up of Grooming Items,Combing/Brushing Hair, Face Washing Comments OT Grooming Comments seated in chair OT ADL-Oral Care General Eval Oral Care Ability Minimal Assistance Areas of Assistance Brushing Teeth,Retrieving/Set- Up of Items Comments Oral Care Comments seated in chair OT ADL-Dressing Comments OT Dressing Comments not performed OT ADL-Toileting Comments OT Toileting Comments pt declines need OT ADL-Bathing Comments OT Bathing Comments not performed M5 OT- IP IADL's Start: 09/18/24 10:47 Freq: Status: Active Protocol: Document 09/18/24 10:48 CGR (Rec: 09/18/24 11:02 CGR [id number]) OT-Instrumental Activities of Daily Living Deficits IADL Deficits Identified No Deficits Home Safety Awareness Awareness of Need for Assistance at Home Good Awareness Ability to Problem Solve Emergency Able to Problem Solve Situations Medication Management Medication Management No Deficits Identified Money Management Money Management No Deficits Identified Meal Preparation Meal Preparation Comments Nephew cooks Learning Consultant Learning Consultant Comments Nephew and marshmallow machine operator performed Driving Driving Comments Pt states he does all of the driving. M6 OT- IP Functional Cognition Start: 09/18/24 10:47 Freq: Status: Active Protocol: Document 09/18/24 10:48 CGR (Rec: 09/18/24 11:02 CGR [id number]) Cognitive Factors Limiting Selfcare Function Cognitive Ability Level of Alertness Alert Patient Orientation Name,Age,Birthday,Date,Year, Day of Week,Place,Situation Attention Span Ability Capable of Focused Attention, Capable of Sustained Attention Ability to Follow Commands Able to Follow One Step Commands with Increased Time, Able to Follow One Step Commands with Repetition Cognitive Comments Cognitive Assessment Comments Pt states that it is October but when corrected pt realizes his mistake. OT- Vision and Hearing OT- Hearing Assessment OT- Hearing Assessment WFL OT- Vision Assessment Visual Acuity Glasses All The Time Visual Attentiveness WFL Occular Pursuits WFL M7 OT- IP Mobility and Balance Start: 09/18/24 10:47 Freq: Status: Active Protocol: Document 09/19/24 16:24 CCC (Rec: 09/19/24 16:29 CCC [id number]) OT-Transfer Assessment Sit to and From Stand Sit to and from Stand Standby Assistance Comments Mobility Comments Pt able to stand to the FWW for a couple minutes until OT able to readjust sitting for pt- able to place pillow side to side to help to off load pressure on his wound on his buttocks. OT- Balance Assessment Sitting Balance and Reactions Static Sitting Balance Ability Good Dynamic Sitting Balance Ability Good Standing Balance and Reactions Static Standing Balance Ability Good M8 OT- IP Objective Assessments Start: 09/18/24 10:47 Freq: Status: Active Protocol: Document 09/18/24 10:48 CGR (Rec: 09/18/24 11:02 CGR [id number]) OT Gross Range of Motion Upper Extremity Range of Motion Assessment Within Functional Limits OT Strength Upper Extremity Strength Assessment Within Functional Limits Comments Strength Comments 5-/5 throughout OT- Coordination Assessment Upper Extremity Finger to Nose Test Within Functional Limits Finger Tapping Test Within Functional Limits OT-Muscle Tone Assessment Muscle Tone WNL Yes OT Sensation Assessment Edema Edema Absent M9 OT- IP Assessment and Plan Start: 09/18/24 10:47 Freq: Status: Active Protocol: Document 09/19/24 16:24 [facility] (Rec: 09/19/24 16:29 [facility] [id number]) OT Summary Assessment and Plan Potential Rehabilitation Potential Good Analytic Complexity at Evaluation Low Summary OT Impairments Pain,Balance,Functional Mobility,Grooming,Dressing, Toileting,Bathing,Toilet Transfers,Shower Transfers, Activity Tolerance Progress Towards Goals Progressing Toward Goals Assessment Summary Pt is looking to go to skilled rehab for his wound care needs. Pt will also benefit from SNF for therapy to work on his dynamic balance needs and overall activity tolerance and strength needs. Goals Grooming Goal Independent Dressing Goal Independent Toileting Goal Independent Bathing Goal Independent Toilet Transfer Goal Independent Shower Transfer Goal Independent Days to Meet Goals 3 Frequency of Treatment Other frequency 5x a week Treatment Plan OT Treatment Plan ADL Training,Functional Mobility,Patient/Family Education,Discharge Planning Discharge Recommendations OT Discharge Recommendations SNF Rehab Transportation Needs at Discharge Private Vehicle,Wheelchair/ Cabulance
[2024-09-19] MEDS: WARFARIN 5 MG, WARFARIN 1 MG 6 MG PO (17:29)
--- NOTE | 2024-09-19 18:26 | PC.NURSE ---
Pt resting in bed. States pain is better since receiving Oxycodone at 1732. Removed packing to right gluteal cleft and replaced with new packing and covered with Allevyn dsg. Pt tolerated packing change well and denies needs at this time.
[2024-09-19] MEDS: LATANOPROST 0.005% OPHTH 2.5 ML 1 DROPS EYE-RIGHT (20:18)
[2024-09-20] MEDS: VANCOMYCIN 1,500 MG/300 ML PIGGYBACK 200 MG IV (04:53)
[2024-09-20] MEDS: OXYCODONE IR 10 MG TABLET PO (04:54)
[2024-09-20 06:36] LABS: INR 2.1 (0.9-1.3); Prothrombin Time 23.2 SECONDS (9.4-12.5)
[2024-09-20] MEDS: PIPERACILLIN/TAZO 3.375 GM in SODIUM CHLORIDE 0.9% 100 ML IV (06:45)
[2024-09-20 08:00] VITALS: BP 128/75; PULSE 76; RESP 16; TEMP 36.7; O2SAT 94
[2024-09-20] MEDS: MONTELUKAST 10 MG TABLET PO (09:01)
[2024-09-20] MEDS: TAMSULOSIN 0.4 MG CAPSULE PO (09:01)
[2024-09-20] MEDS: METOPROLOL IR 25 MG TABLET PO (09:02)
[2024-09-20] MEDS: NICOTINE 21 MG PATCH TOP (09:02)
[2024-09-20] MEDS: GABAPENTIN 300 MG CAPSULE PO (09:02)
[2024-09-20 09:16] VITALS: PULSE 87; RESP 16; O2SAT 94
[2024-09-20] MEDS: BUDESONIDE 0.5 MG/2 ML NEB INH (09:16)
[2024-09-20] MEDS: ALBUTEROL/IPRATROPIUM 3 ML AMPUL INH (09:16)
--- NOTE | 2024-09-20 10:37 | PT-IP ANOTE ---
Attempted to initiate physical therapy this am, patient unavailable due to toileting.
--- NOTE | 2024-09-20 10:51 | PM.DS.1 ---
History of Present Illness History of Present Illness Date Patient Seen: 09/20/24 Time Patient Seen: 10:52 Chief complaint: sent by rosalie Toro on buttocks Narrative: Per admitting provider, 83 y/o with PMH of HTN, A-fib, COPD, smoking, BPH, developed buttock abscess several days ago after he fell and apparently injured that area. It partially self drained in the meantime. He was seen earlier in walk-in clinic and from there referred to ED. Admitted for IV abx and possibly I&D by surgery. Discharge Providers Provider Date of admission: 09/14/24 21:43 Discharge Date: 09/20/24 Primary care physician: Jp Begum MD Consults: 09/14/24 21:10 Consult to General Surgery Stat Comment: Consulting Provider: Neil Roberts Reason for consultation: cellulitis Has provider been notified: Yes 09/16/24 10:40 Consult to Occupational Therapy Evaluate & Treat Comment: Physician Instructions: Evaluate and treat Consult to Physical Therapy Evaluate & Treat Comment: Physician Instructions: Evaluate and Treat Discharge provider: Ryan Pinto DO Summary Hospital Course Discharge Diagnosis: 1. Buttock Cellulitis / Abscess / Septic shock, POA, improving 2. Chronic atrial fibrillation 3. CKD stage 3a 4. HTN 5. COPD without exacerbation 6. BPH 7. Glaucoma Hospital Course: This is an 83 year old male with PMH of atrial fibrillation, CKD stage 3, HTN, COPD, BPH, and glaucoma, and current tobacco use who was admitted with septic shock due to presumed buttock abscess. He had an elevated INR on admission, coumadin was held. He was initially in shock requiring levophed which was able to be weaned quite quickly. He had bedside debridement with general surgery, unforunately cultures were negative. Since then he was on IV antibiotics of zosyn and vancomycin with continued improvement. He is getting BID dressing changes with packing and overlying dressing with nursing staff. Recommend continued BID dressing changes with packing to continue as long as needed, given healing this may only be a few more days. He was discharged on oral antibiotics for another week including cefdinir and doxycycline given no available culture results. He was recommended for retirement on discharge, where he was transferred on 09/20 for ongoing wound care, PT and OT. Time Spent with Patient Time spent: Greater than 30 minutes Exam Vital Signs (past 8 hours): - 09/20/24 08:00 09/20/24 09:16 Temperature 98.1 F Pulse Rate 76 87 Respiratory Rate 16 16 Blood Pressure 128/75 Pulse Oximetry 94 94 Oxygen Delivery Method Room Air Oxygen Flow Rate 0 Fraction of Inspired Oxygen 21 SaO2/FiO2 Ratio 461 Oxygen Delivery Method Room Air Oxygen Flow Rate 0 Narrative Exam Narrative: Alert and oriented x3. No apparent distress. Heart is regular rate and rhythm without murmur Lungs are clear to auscultation bilaterally Extremities have no ankle edema Skin left buttock crease area of pink/redness with firm induration surrounding an opening with packing insert. Objective Labs 09/18/24 05:00 09/18/24 05:00 Labs: Laboratory Results - last 24 hr 09/20/24 05:50 PT 23.2 H INR 2.1 H PFSH Medical History Afib CAD (coronary artery disease) CHF (congestive heart failure) COPD (chronic obstructive pulmonary disease) Current every day smoker HLD (hyperlipidemia) HTN (hypertension) MICHAELA on CPAP Osteoarthritis Pedal edema PVC's (premature ventricular contractions) RBBB (right bundle branch block) Surgical History History of arthroscopy of right shoulder History of carpal tunnel surgery of left wrist History of total left hip replacement History of total left knee replacement History of total right knee replacement Hx of bilateral cataract extraction Hx of hernia repair Hx of repair of left rotator cuff Status post repair of nerve Social History household members: family Smoking Status: Current every day smoker alcohol intake: former Discharge Plan Discharge Plan Patient Disposition: SNF Transfer to: [facility] Discharge orders & Medications Prescriptions: New acetaminophen 325 mg Tablet 650 mg PO Q6H PRN (Reason: Fever/Mild Pain (1-3)) Qty: 30 0RF oxycodone 10 mg Tablet 10 mg PO Q3H PRN (Reason: Pain, Severe (7-10)) 7 Days Qty: 30 0RF cefdinir 300 mg capsule 300 mg PO BID 7 Days Qty: 14 0RF doxycycline hyclate 100 mg tablet 100 mg PO BID 7 Days Qty: 14 0RF nicotine 14 mg/24 hr patch 24 hour 1 patch transdermal DAILY 7 Days Qty: 7 0RF Continued azithromycin 250 mg Capsule 250 mg PO DAILY Rx Instructions: Wednesday, Wed, and Wednesday bupropion HCl 150 mg tablet extended release 24 hr 300 mg PO DAILY latanoprost 0.005 % Drops 1 drp OPHTHALMIC (EYE) DIRECTED fluticasone propion-salmeterol [Advair Diskus] 250-50 mcg/dose Blister With Device 1 inh INHALATION BID amlodipine 5 mg Tablet 5 mg PO QAM baclofen 10 mg Tablet 10 mg PO Q8H PRN (Reason: Muscle Spasm) albuterol sulfate 90 mcg/actuation Hfa Aerosol Inhaler 2 puff INHALATION Q4-6H PRN (Reason: Shortness Of Breath) lisinopril 40 mg Tablet 40 mg PO DAILY Patient Comments: Takes at bedtime metoprolol tartrate 25 mg Tablet 25 mg PO BID gabapentin 300 mg Tablet 300 mg PO BID warfarin 2 mg Tablet 2 mg PO DIRECTED Patient Comments: 8mg M,W,F,Gaitan/6mg rest ibuprofen 200 mg Capsule 400 mg PO Q6H PRN (Reason: Pain) tiotropium bromide [Spiriva with HandiHaler] 18 mcg Capsule, W/Inhalation Device 1 cap INHALATION DAILY atorvastatin 40 mg tablet 40 mg PO DAILY montelukast 10 mg tablet 10 mg PO DAILY tamsulosin 0.4 mg capsule 0.4 mg PO DAILY Follow up/Referrals: Jp Begum MD [Primary Care Provider] - Discharge Health Status Multidrug resistant organism: No MDRO Precautions: Hodgen Diet/Activity/Treatments Diet: Diet as Tolerated and Regular Liquid consistency: Normal/Thin Food texture: Regular Diet comment: No restrictions Activity: As tolerated no restrictions Skin/Wound/Dressing Care Dressing: buttock, BID packing with cue-tip and dressing changes Special Rehabilitation Services Reason for rehabilitation: Recovery r/t decondition Rehab type: Physical therapy and Occupational therapy Visit Report/Discharge Packet Stand Alone Forms: Patient Portal/API Discharge Data Primary Care Provider: Jp Begum
--- NOTE | 2024-09-20 12:33 | PT.IPTN ---
Current Diagnoses Unspecified glaucoma (09/14/24) Unspecified atrial fibrillation (09/14/24) Centrilobular emphysema (09/14/24) Cutaneous abscess of buttock (09/14/24) Cellulitis, unspecified (09/14/24) Chronic kidney disease, stage 3a (09/14/24) Benign prostatic hyperplasia without lower urinary tract symptoms (09/14/24) Physical Therapy Treatment Note M2 PT-IP Current Condition Start: 09/16/24 14:32 Freq: NEEDED Status: Active Protocol: Document 09/20/24 10:44 AB (Rec: 09/20/24 12:33 AB [id number]) Physical Therapy Current Condition Current Condition Evaluation Date 09/16/24 Treatment Diagnosis sacral cellulitis; difficulty in walking Onset Date 09/14/24 M3 PT-IP Subjective Start: 09/16/24 14:32 Freq: NEEDED Status: Active Protocol: Document 09/20/24 10:44 AB (Rec: 09/20/24 12:33 AB [id number]) Subjective Physical Therapy Visit Type Type Treatment Note Visit Start Time 10:48 Visit Stop Time 11:14 Number of SUPERVISOR EVAPORATOR Visits 2 Physical Therapy Visit Comments Patient Comments Patient agreeable to partcipate in physical therapy . Therapy Pain Assessment Pain When Pain Assessed At Rest Pain Present Pain Present Denied Pain M4 PT-IP Mobility and Gait Start: 09/16/24 14:32 Freq: NEEDED Status: Active Protocol: Document 09/20/24 10:44 AB (Rec: 09/20/24 12:33 AB [id number]) PT-Bed Mobility Assessment Supine to Sit Supine to Sit Independent Sit to Supine Sit to Supine Independent,Bedrails PT-Transfer Assessment Sit to and From Stand Sit to and from Stand Independent,Use of Upper Extremities Equipment Transfer Assistive Device Gait Belt,4 Wheeled Walker Orthotic/Prosthetic Devices or Brace: No Transfers Transfer Destination Bed Transfer Technique ambulated Transfer Ability Level of Assist Independent,Use of Upper Extremities Comments Mobility Comments Used 4WW for transfers 98% on room air 60% of time locks and unlocks brakes appropriately, VC to correct Gait Assessment Gait Gait Assistance Required: Independent,Standby Assistance Distance (Feet) 446 Able to Maintain Weight Bearing Status Yes During Gait Assistive Devices Assistive Device Gait Belt,Front Wheeled Walker ,4 Wheeled Walker Orthotic/Prosthetic Devices or Brace: No Factors Limiting Gait Function Factors Limiting Gait Function Decreased Activity Tolerance, Decreased Strength,Limited Range of Motion,Pain,Poor Balance,Poor Safety Awareness Stair Climbing Assessment Evaluation Level of Assist On Stairs Independent Devices Stair Climbing Assistive Devices Left Railing,Right Railing Technique/Endurance Stair Climbing Direction Ascend and Descend Stair Climbing Technique Step to Step Number of Steps Climbed 1 Stair Climbing Set # Repetitions (reps) 6 Comments Stair Climbing Comments Verbal cues only for IV line position ie stepping in the direction to avoid tangling in line. PT-Balance Assessment Sitting Balance and Reactions Static Sitting Balance Ability Good Dynamic Sitting Balance Ability Good Standing Balance and Reactions Static Standing Balance Ability Good Dynamic Standing Balance Ability Fair Device Used 4 wheeled walker M5 PT-IP Objective Assessments Start: 09/16/24 14:32 Freq: NEEDED Status: Active Protocol: Document 09/20/24 10:44 AB (Rec: 09/20/24 12:33 AB [id number]) Orientation Orientation/Cognition Level of Alertness Alert Orientation Name,Age,Birthday,Month,Date, Year,Day of Week,Place, Situation Language Function Ability Hard of Hearing Safety Awareness Decreased Safety Awareness Memory Description No Deficits Noted Muscle Tone Muscle Tone WNL Yes M6 PT-IP Treatment Start: 09/16/24 14:32 Freq: NEEDED Status: Active Protocol: Document 09/19/24 10:43 AB (Rec: 09/19/24 10:56 AB [id number]) Physical Therapy Treatment Exercises Exercises Ankle Pumps Education Education Provided Safety Other Treatments Other Treatment Performed Hip ext and abd in sidelying M7 PT-IP Assessment and Plan Start: 09/16/24 14:32 Freq: NEEDED Status: Active Protocol: Document 09/20/24 10:44 AB (Rec: 09/20/24 12:33 AB [id number]) PT Summary Assessment and Plan Potential Rehabilitation Potential Good Status of Condition at Evaluation Evolving Summary Assessment Summary Pt is an 83 yo male w/sacral cellulitis s/p I&D. O2 sat on room air during transfers when slight out of breath 98% this session. Patient ambulated over 400 feet with 4 wheeled walker I, but requires VC 60% of time for locking and unlocking brakes appropriately. Goals Bed Mobility Goal Independent Transfer Goal Independent,Four Wheeled Walker Gait Goal Independent,Four Wheel Walker Gait Distance 200 Other Goals up/down 5 steps R rail ascending mod I improve ambulation without AD/ LRAD ~ 200 ft mod I Days to Meet Goals 10 Frequency of Treatment Frequency Of Treatment Once a Day Treatment Plan Physical Therapy Treatment Plan Bed Mobility Training,Transfer Training,Gait Training, Therapeutic Exercise,Balance Retraining,Post Op Education, Discharge Planning,Hot or Cold Pack,Neuromuscular Re-ed, Coordination Retraining,Manual Therapy Precautions Other Precautions Contact precautions. Recommendations To Nursing Amount of Assist Needed 1 Person Assist Discharge Recommendations PT Discharge Recommendations Home with Assistance,Home Health Other Discharge Recommendations Short stay SNF if sacral cellulitis care is needed. Transportation Needs at Discharge Private Vehicle
--- NOTE | 2024-09-20 12:51 | PC.NURSE ---
Pt denies pain, PICC line removed. Pt now showering with assist from OT. Called report to Elizabet FRASER at [facility] and answered all questions. Pt is ready for transfer to [facility] when they arrive to pick him up.
--- NOTE | 2024-09-20 13:15 | OT.IP.TRT ---
Current Diagnoses Unspecified glaucoma (09/14/24) Unspecified atrial fibrillation (09/14/24) Centrilobular emphysema (09/14/24) Cutaneous abscess of buttock (09/14/24) Cellulitis, unspecified (09/14/24) Chronic kidney disease, stage 3a (09/14/24) Benign prostatic hyperplasia without lower urinary tract symptoms (09/14/24) Occupational Therapy Treatment Note M2 OT-IP Current Condition Start: 09/18/24 10:47 Freq: Status: Active Protocol: Document 09/18/24 10:48 CGR (Rec: 09/18/24 11:02 CGR [id number]) Occupational Therapy Current Condition Current Condition Evaluation Date 09/18/24 Treatment Diagnosis buttox abcess after fall, I&D performed 09/15 Diagnosis Onset Date 09/14/24 M3 OT- IP Subjective and Pain Start: 09/18/24 10:47 Freq: Status: Active Protocol: Document 09/20/24 13:19 CGR (Rec: 09/20/24 13:29 CGR [id number]) OT- Subjective Occupational Therapy Visit Type Type Treatment Note Visit Start Time 12:45 Visit Stop Time 13:15 Notes Pt is requesting to take a shower. Attempted to see earlier in AM but pt had just finished P.T. OT Pain Assessment Pain When Pain Assessed At Rest Pain Present Pain Present Pain Reported Location Generalized Scale Used did not rate Pain Behaviors Facial Grimacing,Guarding Management Techniques Modification of Treatment,Re- positioning M4 OT- IP ADL's Start: 09/18/24 10:47 Freq: Status: Active Protocol: Document 09/20/24 13:19 CGR (Rec: 09/20/24 13:29 CGR [id number]) OT [id number] Comments OT Self-Feeding Comments not meal time OT ADL-Grooming General Evaluation Grooming Ability Independent Areas Needing Assistance Face Washing Comments OT Grooming Comments in shower OT ADL-Oral Care Comments Oral Care Comments not performed OT ADL-Dressing General Eval Upper Body Dressing Ability Minimal Assistance Lower Body Dressing Ability Maximum Assistance Areas Needing Assistance Underpants/Brief,Socks Comments OT Dressing Comments Pt states that he uses a charge attendant and sock aid to perform at home. OT ADL-Toileting Comments OT Toileting Comments not performed OT ADL-Bathing Bathing Type Bathing Type Shower General Evaluation Bathing Ability Minimal Assistance Comments OT Bathing Comments Pt requesting to shower and performed with set up and min a for drying off. M5 OT- IP IADL's Start: 09/18/24 10:47 Freq: Status: Active Protocol: Document 09/18/24 10:48 CGR (Rec: 09/18/24 11:02 CGR [id number]) OT-Instrumental Activities of Daily Living Deficits IADL Deficits Identified No Deficits Home Safety Awareness Awareness of Need for Assistance at Home Good Awareness Ability to Problem Solve Emergency Able to Problem Solve Situations Medication Management Medication Management No Deficits Identified Money Management Money Management No Deficits Identified Meal Preparation Meal Preparation Comments Nephew cooks Hospice Entrance Attendant Hospice Entrance Attendant Comments Nephew and mall plant caretaker performed Driving Driving Comments Pt states he does all of the driving. M6 OT- IP Functional Cognition Start: 09/18/24 10:47 Freq: Status: Active Protocol: Document 09/18/24 10:48 CGR (Rec: 09/18/24 11:02 CGR [id number]) Cognitive Factors Limiting Selfcare Function Cognitive Ability Level of Alertness Alert Patient Orientation Name,Age,Birthday,Date,Year, Day of Week,Place,Situation Attention Span Ability Capable of Focused Attention, Capable of Sustained Attention Ability to Follow Commands Able to Follow One Step Commands with Increased Time, Able to Follow One Step Commands with Repetition Cognitive Comments Cognitive Assessment Comments Pt states that it is October but when corrected pt realizes his mistake. OT- Vision and Hearing OT- Hearing Assessment OT- Hearing Assessment WFL OT- Vision Assessment Visual Acuity Glasses All The Time Visual Attentiveness WFL Occular Pursuits WFL M7 OT- IP Mobility and Balance Start: 09/18/24 10:47 Freq: Status: Active Protocol: Document 09/20/24 13:19 CGR (Rec: 09/20/24 13:29 CGR [id number]) OT- Bed Mobility Assessment Supine to Sit Supine to Sit Assist Standby Assistance,Head of Bed Elevated,Bedrails Scooting Scooting to Edge of Bed Standby Assistance,Head of Bed Elevated,Bedrails OT-Transfer Assessment Sit to and From Stand Sit to and from Stand Standby Assistance Transfers Transfer Ability Standby Assistance Technique Transfer Destination Bed,Bedside Commode,Chair, Shower Stall,Toilet Transfer Technique Stand Step Pivot Devices Transfer Assistive Devices Gait Belt,Front Wheeled Walker Comments Mobility Comments Pt was in bed when OT entered. Pt got out of bed and ambualted to shower for bathing and sat on BSC for showering. Pt returned to chair at the end of session. OT- Balance Assessment Sitting Balance and Reactions Static Sitting Balance Ability Good Dynamic Sitting Balance Ability Good M8 OT- IP Objective Assessments Start: 09/18/24 10:47 Freq: Status: Active Protocol: Document 09/18/24 10:48 CGR (Rec: 09/18/24 11:02 CGR [id number]) OT Gross Range of Motion Upper Extremity Range of Motion Assessment Within Functional Limits OT Strength Upper Extremity Strength Assessment Within Functional Limits Comments Strength Comments 5-/5 throughout OT- Coordination Assessment Upper Extremity Finger to Nose Test Within Functional Limits Finger Tapping Test Within Functional Limits OT-Muscle Tone Assessment Muscle Tone WNL Yes OT Sensation Assessment Edema Edema Absent M9 OT- IP Assessment and Plan Start: 09/18/24 10:47 Freq: Status: Active Protocol: Document 09/20/24 13:19 CGR (Rec: 09/20/24 13:29 CGR [id number]) OT Summary Assessment and Plan Potential Rehabilitation Potential Good Analytic Complexity at Evaluation Low Summary OT Impairments Pain,Balance,Functional Mobility,Grooming,Dressing, Toileting,Bathing,Toilet Transfers,Shower Transfers, Activity Tolerance Progress Towards Goals Progressing Toward Goals Assessment Summary Pt is looking to go to skilled rehab for his wound care needs. Pt will also benefit from SNF for therapy to wokd on his dynamic balance needs and overall activity tolerance and strength needs. Goals Grooming Goal Independent Dressing Goal Independent Toileting Goal Independent Bathing Goal Independent Toilet Transfer Goal Independent Shower Transfer Goal Independent Days to Meet Goals 3 Frequency of Treatment Other frequency 5x a week Treatment Plan OT Treatment Plan ADL Training,Functional Mobility,Patient/Family Education,Discharge Planning Other Treatment Recommendations and Next ADLs standing, toielting, Treatment Focus shower if oked d/t bottox wound. Discharge Recommendations OT Discharge Recommendations SNF Rehab Transportation Needs at Discharge Private Vehicle,Wheelchair/ Cabulance
--- NOTE | 2024-09-20 14:23 | PC.NURSE ---
Pt transported out to [facility] via w/c and loaded into vehicle. All belongings, Pt home meds, and Packet sent with Supervisory Cbp Officer.
--- NOTE | 2024-09-20 14:32 | CM.DPNOTE ---
GABBI Jackson at [facility] has secured insurance authorization and can accept patient for admission today. Patient remains aware and agreeable to plan. EMILIE Christina kindly agreed to assist in this coordination; all DC ppk emailed to Renetta. In reviewing criteria for [facility], noticed that patient has Buproprion (Wellbutrin) on his discharge med list. Consulted Dr Pinto, bedside RN and patient; this medication had been prescribed by PCP for smoking cessation. Placed call to [facility] instructional design consultant Tatiana Bustillo [phone] to discuss. Patient meets criteria for hospital exempt [facility] due to the addition of Buproprian for smoking cessation and potentially dual effect of antidepressant. Noted on [facility] and signed by Dr Pinto. Wheelchair van scheduled for meat pickler at [phone]. Plan: Discharge to [facility] via wheelchair van. Hospital exempt [facility] faxed to Tatiana Wray [phone]. DANIEL
== END 2024-09-20 14:24 | DRG 871 ==
LOC: ED 21:11 → AC 21:44 → ICU 09-15 15:43 → AC 09-17 22:37
PROVIDERS: Hospitalist; Admitting Provider Internal Medicine; Emergency Provider Emergency Medicine; PCP Internal Medicine; Referring Provider Emergency Medicine; Visit Provider Internal Medicine
DX: A41.9 Sepsis, unspecified organism (principal); R65.21 Severe sepsis with septic shock; L03.317 Cellulitis of buttock; L02.31 Cutaneous abscess of buttock; I48.20 Chronic atrial fibrillation, unspecified; I96 Gangrene, not elsewhere classified; N40.0 Benign prostatic hyperplasia without lower urinary tract symptoms; H40.9 Unspecified glaucoma; N18.31 Chronic kidney disease, stage 3a; I12.9 Hypertensive chronic kidney disease with stage 1 through stage 4 chronic kidney disease, or unspecified chronic kidney disease; J44.9 Chronic obstructive pulmonary disease, unspecified; R79.1 Abnormal coagulation profile; F17.200 Nicotine dependence, unspecified, uncomplicated; Z79.01 Long term (current) use of anticoagulants
CPT/HCPCS: 36415; 36592; 71045; 74177; 80048; 80053; 83605; 83690; 84145; 85025; 85027; 85610; 85730; 87040; 87070; 87075; 87205; 87797; 94640; 94660; 94762; 96365; 96367; 96368; 97116; 97162; 97166; 97530; 97535; 99285; 99406; J0692; J0696; J0736; J1642; J2060; J2270; J2543; J3430; J7613; Q9967

== ENCOUNTER 2024-12-07 19:55 | Emergency (ER) | payer MEDICARE, MEDICAID, SELFPAY ==
[2024-09-14 22:45] VITALS: BMI 32.3
[2024-12-07 20:04] VITALS: BP 143/91; PULSE 73; RESP 26; TEMP 36.4; O2SAT 98; BMI 34.2
--- NOTE | 2024-12-07 20:13 | DI.RAD.S_ITS ---
PROCEDURE: XR CHEST 1V INDICATIONS: Shortness of breath TECHNIQUE: One view of the chest was acquired. COMPARISON: [facility], CR, XR CHEST 1V, 09/15/2024, 16:27. FINDINGS: Surgical changes and devices: None. Lungs and pleura: Diffuse thickening of the interstitial markings and Gracie B lines at the lateral bibasilar regions. Hazy alveolar opacities at both bases. Possible trace right pleural effusion. Mediastinum: Cardiomegaly is incompletely seen. Central vasculature is congested. Aortic contour is normal. Bones and chest wall: No suspicious bony lesions. Overlying soft tissues appear unremarkable. IMPRESSION: Cardiomegaly and findings of central vascular and interstitial congestion. Consider CHF and/or volume overload. Underlying viral pneumonitis cannot be entirely excluded. Correlate with lab values. Dictated by: Arely Gibbs M.D. on 12/07/2024 at 20:31 Approved by: Arely Gibbs M.D. on 12/07/2024 at 20:32
--- NOTE | 2024-12-07 20:13 | EKG_ITS ---
[place] [id number] [place] [id number] Test Date: 2024-12-07 Pat Name: John Damico Jr Department: [facility] Room: Gender: Male Account Solutions Analyst: LINDA : 1940 Requested By: Order Number: [id number] Reading MD: Ryan Pinto Measurements Intervals [place] Rate: 70 P: RI: QRS: 46 QRSD: 140 T: 0 QT: 442 QTc: 477 Interpretive Statements Atrial fibrillation Right bundle branch block Electronically Signed On 12-08-2024 19:11:01 PDT by Ryan Pinto
[2024-12-07 20:41] LABS: Add Manual Diff / Slide Review NO; Basophils Absolute Auto 100 /uL (0-100); Eosinophils Absolute Auto 100 /uL (0-450); Eosinophils Percent Auto 1.8 % (2-4); Hematocrit 36.4 % (41-53); Hemoglobin 12.2 g/dL (13.5-17.5); Lymphocytes Absolute Auto 1100 /uL (1100-4500); Lymphocytes Percent Auto 15.7 % (25-40); Mean Corpuscular HGB Conc 33.6 % (30-36); Mean Corpuscular Volume 95.3 fL (80-100); Monocytes Absolute Auto 600 /uL (0-900); Monocytes Percent Auto 8.5 % (3-14); Neutrophils Absolute Auto 5100 /uL (1500-7000); Platelet Count 174 X10^3/uL (150-400); Red Blood Cell Count 3.82 X10^6/uL (4.5-5.9); Red Cell Distribution Width 15.7 % (11.6-14.8)
[2024-12-07 20:54] LABS: INR 3.8 (0.9-1.3); Prothrombin Time 42.1 SECONDS (9.4-12.5)
[2024-12-07 20:54] LABS: Urine Volume 10mL (spun)
[2024-12-07 20:58] LABS: Alanine Aminotransferase 30 IU/L (<50); Albumin 3.7 g/dL (3.5-5.0); Albumin Globulin Ratio 1.1 (1.0-2.8); Alkaline Phosphatase 69 U/L (38-126); Aspartate Aminotransferase 29 IU/L (17-59); BUN Creatinine Ratio 14.3 (6-22); Bilirubin Total 1.8 mg/dL (0.2-1.3); Blood Urea Nitrogen 14 mg/dL (9-20); Calcium 8.4 mg/dL (8.4-10.2); Carbon Dioxide 28 mmol/L (22-32); Chloride 104 mmol/L (98-107); Estimated Glomerular Filt Rate > 60 mL/min (>60); Globulin 3.5 g/dL (1.7-4.1); Glucose 120 mg/dL (80-110); HEMOLYSIS < 15 (0-50); Lactate (Lactic Acid) 1.2 mmol/L (0.7-2.1); Potassium 4.3 mmol/L (3.4-5.1); Sodium 139 mmol/L (137-145); Total Protein 7.2 g/dL (6.3-8.2)
[2024-12-07 20:58] LABS: Bacteria Urine Few (2-10); RBC Urine None Seen (0-5/HPF); Squamous Epithelial Cell Urine 1-5 /HPF (0-5/HPF); WBC Urine 0-1/HPF (0-5/HPF)
[2024-12-07 20:59] LABS: Culture Indicated Urine Cult Not Indicated
[2024-12-07 21:05] VITALS: PULSE 68; RESP 30; O2SAT 96
[2024-12-07 21:10] LABS: NT-proBNP (BNP-Adult 18+) 8620 pg/mL (<450); Troponin I < 0.012 ng/mL (0.01-0.034)
[2024-12-07 21:18] LABS: Influenza A - CEPHEID Flu A NEGATIVE (NEGATIVE); Influenza B - CEPHEID Flu B NEGATIVE (NEGATIVE); Respiratory Syncytial Virus Negative (Negative)
[2024-12-07] MEDS: ALBUTEROL/IPRATROPIUM 3 ML AMPUL INH (21:19)
[2024-12-07 21:23] LABS: COVID-19 CEPHEID 4-PLEX PCR Negative (Negative)
[2024-12-07 21:30] VITALS: PULSE 69; RESP 31; O2SAT 98
[2024-12-07 21:31] VITALS: BP 173/77; PULSE 70; RESP 33; O2SAT 97
[2024-12-07 22:00] VITALS: BP 137/72; PULSE 80; RESP 33; O2SAT 93
[2024-12-07 22:30] VITALS: BP 147/66; PULSE 79; RESP 28; O2SAT 94
--- NOTE | 2024-12-08 03:45 | ED_ITS ---
HPI - General Adult General Chief complaint: Shortness of Breath/Dyspnea Stated complaint: difficulty breathing Source: patient Mode of arrival: Wheelchair Related Data Home Medications Medication Instructions Recorded Confirmed albuterol sulfate 90 mcg/actuation 2 puff inhalation Q4-6H PRN 07/15/21 09/14/24 aerosol inhaler Shortness Of Breath amlodipine 5 mg tablet 5 mg PO QAM 07/15/21 09/14/24 baclofen 10 mg tablet 10 mg PO Q8H PRN Muscle Spasm 07/15/21 09/15/24 fluticasone 250 mcg-salmeterol 50 1 inh inhalation BID 07/15/21 09/15/24 mcg/dose blistr powdr for inhalation (Advair Diskus) gabapentin 300 mg tablet 300 mg PO BID 07/15/21 09/15/24 latanoprost 0.005 % eye drops 1 drp ophthalmic (eye) DIRECTED 07/15/21 09/15/24 lisinopril 40 mg tablet 40 mg PO DAILY 07/15/21 09/15/24 metoprolol tartrate 25 mg tablet 25 mg PO BID 07/15/21 09/15/24 ibuprofen 200 mg capsule 400 mg PO Q6H PRN Pain 07/18/21 09/15/24 tiotropium bromide 18 mcg capsule 1 cap inhalation DAILY 07/18/21 09/15/24 with inhalation device (Spiriva with HandiHaler) warfarin 2 mg tablet 2 mg PO DIRECTED 07/18/21 09/15/24 atorvastatin 40 mg tablet 40 mg PO DAILY 07/27/23 09/15/24 montelukast 10 mg tablet 10 mg PO DAILY 07/27/23 09/15/24 tamsulosin 0.4 mg capsule 0.4 mg PO DAILY 07/27/23 09/15/24 azithromycin 250 mg capsule 250 mg PO DAILY 09/14/24 09/15/24 bupropion HCl 150 mg 24 hr tablet, 300 mg PO DAILY 09/15/24 09/15/24 extended release Previous Rx's Medication Instructions Recorded acetaminophen 325 mg tablet 650 mg (2 x 325 mg) PO Q6H PRN 09/20/24 Fever/Mild Pain (1-3) #30 tabs Allergies Allergy/AdvReac Type Severity Reaction Status Date / Time No Known Drug Allergies Allergy Verified 09/14/24 19:14 Patient History Medical History Afib CAD (coronary artery disease) CHF (congestive heart failure) COPD (chronic obstructive pulmonary disease) Current every day smoker HLD (hyperlipidemia) HTN (hypertension) MICHAELA on CPAP Osteoarthritis Pedal edema PVC's (premature ventricular contractions) RBBB (right bundle branch block) Surgical History History of arthroscopy of right shoulder History of carpal tunnel surgery of left wrist History of total left hip replacement History of total left knee replacement History of total right knee replacement Hx of bilateral cataract extraction Hx of hernia repair Hx of repair of left rotator cuff Status post repair of nerve Social History household members: family Smoking Status: Former smoker alcohol intake: former Smoking Status: Former smoker tobacco type: cigarettes Exam Initial Vital Signs Initial Vital Signs: Vital Signs Temperature 97.5 F L 12/07/24 20:04 Pulse Rate 73 12/07/24 20:04 Respiratory Rate 26 H 12/07/24 20:04 Blood Pressure 143/91 H 12/07/24 20:04 Pulse Oximetry 98 12/07/24 20:04 Oxygen Delivery Method Room Air 12/07/24 20:04 Course Orders Ordered: ED Orders 12/07/24 20:10 Urine Microscopic Stat 12/07/24 20:13 XR chest 1V Stat EKG-12 Lead Stat Measure peak expiratory flow ONCE RT Consult Eval and Treat NOW 12/07/24 20:27 Complete Blood Count AUTO DIFF Stat Comprehensive Metabolic Panel Stat Covid-19 + FLU A/B + RSV - PCR Stat Lactate (Lactic Acid) Stat NT-proBNP (BNP-Adult 18+) Stat Prothrombin Time INR Stat Troponin I Stat 12/07/24 22:07 Consult to BOTTOM CRANE OPERATOR - Licensed Pharmacist Stat Discontinued Medications Albuterol/Ipratropium (Albuterol/Ipratropium 3 Ml Ampul) 3 ml INH NOW ONE Stop: 12/07/24 21:16 Last Admin: 12/07/24 21:19 Dose: 3 ml Documented By: Ondansetron HCl (Ondansetron 4 Mg/2 Ml Inj) 4 mg IV NOW PRN PRN Reason: Nausea And Vomiting Ondansetron HCl (Ondansetron 4 Mg Odt) 4 mg SL NOW PRN PRN Reason: Nausea And Vomiting Vital Signs Vital signs: Vital Signs - 8 hr 12/07/24 20:04 12/07/24 21:05 12/07/24 21:30 Temperature 97.5 F L Pulse Rate 73 68 69 Respiratory Rate 26 H 30 H 31 H Blood Pressure 143/91 H Pulse Oximetry 98 96 98 Oxygen Delivery Method Room Air 12/07/24 21:31 12/07/24 21:31 12/07/24 22:00 Temperature Pulse Rate 70 Respiratory Rate 33 H Blood Pressure 173/77 H 137/72 Pulse Oximetry 97 Oxygen Delivery Method 12/07/24 22:00 12/07/24 22:30 12/07/24 22:30 Temperature Pulse Rate 80 79 Respiratory Rate 33 H 28 H Blood Pressure 147/66 H Pulse Oximetry 93 94 Oxygen Delivery Method Medical Decision Making Lab Data 12/07/24 20:27 12/07/24 20:27 Labs: Lab Results 12/07/24 12/07/24 Range/Units 20:10 20:27 WBC 7.0 (4.5-11.0) X10^3/uL RBC 3.82 L (4.5-5.9) X10^6/uL Hgb 12.2 L (13.5-17.5) g/dL Hct 36.4 L (41-53) % MCV 95.3 (80-100) fL MCH 32.0 (26-34) PG MCHC 33.6 (30-36) % RDW 15.7 H (11.6-14.8) % Plt Count 174 (150-400) X10^3/uL Neut % (Auto) 73.0 (50-75) % Lymph % (Auto) 15.7 L (25-40) % [place] % (Auto) 8.5 (3-14) % Eos % (Auto) 1.8 L (2-4) % Baso % (Auto) 1.0 (0-2) % Neut # (Auto) 5100 (3884-3686) /uL Lymph # (Auto) 1100 (3874-2310) /uL [place] # (Auto) 600 (0-900) /uL Eos # (Auto) 100 (0-450) /uL Baso # (Auto) 100 (0-100) /uL PT 42.1 H (9.4-12.5) SECONDS INR 3.8 H (0.9-1.3) Sodium 139 (137-145) mmol/L Potassium 4.3 (3.4-5.1) mmol/L Chloride 104 (98-107) mmol/L Carbon Dioxide 28 (22-32) mmol/L BUN 14 (9-20) mg/dL Creatinine 0.98 (0.66-1.25) mg/dL Estimated GFR > 60 (>60) mL/min BUN/Creatinine Ratio 14.3 (6-22) Glucose 120 H (80-110) mg/dL Lactate 1.2 (0.7-2.1) mmol/L Calcium 8.4 (8.4-10.2) mg/dL Total Bilirubin 1.8 H (0.2-1.3) mg/dL AST 29 (17-59) IU/L ALT 30 (<50) IU/L Alkaline Phosphatase 69 (38-126) U/L Troponin I < 0.012 (0.01-0.034) ng/mL NT-Pro-B Natriuret Pep 8620 H (<450) pg/mL Total Protein 7.2 (6.3-8.2) g/dL Albumin 3.7 (3.5-5.0) g/dL Globulin 3.5 (1.7-4.1) g/dL Albumin/Globulin Ratio 1.1 (1.0-2.8) Urine RBC None seen (0-5/HPF) Urine WBC 0-1/hpf (0-5/HPF) Ur Squamous Epith Cells 1-5 /hpf (0-5/HPF) Urine Bacteria Few (2-10) H (None) Ur Culture Indicated? Cult not indicated Vol Urine Centrifuged 10ml (spun) SARS-CoV-2 (PCR) Negative (Negative) Influenza A (RT-PCR) Flu a negative (NEGATIVE) Influenza B (RT-PCR) Flu b negative (NEGATIVE) RSV (PCR) Negative (Negative) Urine Dip Bedside Urine Glucose Negative Bedside Urine Bilirubin - Negative Bedside Urine Ketone - Negative Urine Specific [place] 1.015 Bedside Urine Occult Blood +/- Bedside Urine pH 7 Bedside Urine Protein + 30 Bedside Urine Urobilinogen +/- 1mg Bedside Urine Nitrite - Negative Bedside Urine Leukocytes - Negative Esterase Point of care testing: Urine Dip Bedside Urine Glucose Negative Bedside Urine Bilirubin - Negative Bedside Urine Ketone - Negative Urine Specific [place] 1.015 Bedside Urine Occult Blood +/- Bedside Urine pH 7 Bedside Urine Protein + 30 Bedside Urine Urobilinogen +/- 1mg Bedside Urine Nitrite - Negative Bedside Urine Leukocytes - Negative Esterase ECG Data Attestation: I personally reviewed and interpreted this ECG as follows: Interpretation: Atrial fibrillation right bundle-branch block rate of 70 VT 140 QRS of 477. Nonspecific change. MDM Narrative Medical decision making narrative: Labs show white count of 7 hemoglobin of 12.2 platelets of 174. INR is 3.8. Chemistries are appropriate glucose is 120 troponins less than 0.012 with a BNP of 8620 patient had duoneb. Patient left without being seen. Ambulating the department without issue. Discharge Plan Departure Patient Disposition: Left Without Being Seen Clinical Impression: Patient left before evaluation by physician Prescriptions: No Action azithromycin 250 mg Capsule 250 mg PO DAILY Rx Instructions: Wednesday, Wed, and Wednesday bupropion HCl 150 mg tablet extended release 24 hr 300 mg PO DAILY acetaminophen 325 mg Tablet 650 mg PO Q6H PRN (Reason: Fever/Mild Pain (1-3)) Qty: 30 0RF latanoprost 0.005 % Drops 1 drp OPHTHALMIC (EYE) DIRECTED fluticasone propion-salmeterol [Advair Diskus] 250-50 mcg/dose Blister With Device 1 inh INHALATION BID amlodipine 5 mg Tablet 5 mg PO QAM baclofen 10 mg Tablet 10 mg PO Q8H PRN (Reason: Muscle Spasm) albuterol sulfate 90 mcg/actuation Hfa Aerosol Inhaler 2 puff INHALATION Q4-6H PRN (Reason: Shortness Of Breath) lisinopril 40 mg Tablet 40 mg PO DAILY Patient Comments: Takes at bedtime metoprolol tartrate 25 mg Tablet 25 mg PO BID gabapentin 300 mg Tablet 300 mg PO BID warfarin 2 mg Tablet 2 mg PO DIRECTED Patient Comments: 8mg M,W,F,Gaitan/6mg rest ibuprofen 200 mg Capsule 400 mg PO Q6H PRN (Reason: Pain) tiotropium bromide [Spiriva with HandiHaler] 18 mcg Capsule, W/Inhalation Device 1 cap INHALATION DAILY atorvastatin 40 mg tablet 40 mg PO DAILY montelukast 10 mg tablet 10 mg PO DAILY tamsulosin 0.4 mg capsule 0.4 mg PO DAILY
--- NOTE | 2024-12-14 11:08 | CM.SWNOTE ---
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 PCP: Dr. Jp Begum Insurance: [facility] and Medicaid. SONG AND DANCE PERFORMER attempted to call pt at number listed 2x and pt did not return call. Pt would benefit from follow up call about a ED follow up appt with PCP, inquire about home health referral and any other needs in the community. Christa Callahan, NURSING PROGRAM MANAGER
== END 2024-12-07 22:56 | disposition left against medical advice (07) ==
PROVIDERS: Emergency Provider Emergency Medicine; PCP Internal Medicine
DX: R06.00 Dyspnea, unspecified (principal); I48.91 Unspecified atrial fibrillation; I45.10 Unspecified right bundle-branch block
CPT/HCPCS: 0241U; 36415; 71045; 80053; 81003; 81015; 83605; 83880; 84484; 85025; 85610; 93005; 94640; 99284

== ENCOUNTER → 2025-01-10 13:48 | Outpatient (CLI) | payer MEDICARE, MEDICAID, SELFPAY ==
[2024-09-14 22:45] VITALS: BMI 32.3
[2025-01-10 14:49] LABS: Hematocrit 42.2 % (41-53); Hemoglobin 14.1 g/dL (13.5-17.5); Mean Corpuscular HGB Conc 33.4 % (30-36); Mean Corpuscular Hemoglobin 31.9 PG (26-34); Mean Corpuscular Volume 95.3 fL (80-100); Platelet Count 153 X10^3/uL (150-400); Red Blood Cell Count 4.43 X10^6/uL (4.5-5.9); Red Cell Distribution Width 15.6 % (11.6-14.8); White Blood Cell Count 6.6 X10^3/uL (4.5-11.0)
[2025-01-10 15:39] LABS: Alanine Aminotransferase 49 IU/L (<50); Albumin 3.9 g/dL (3.5-5.0); Albumin Globulin Ratio 1.2 (1.0-2.8); Alkaline Phosphatase 92 U/L (38-126); Aspartate Aminotransferase 35 IU/L (17-59); BUN Creatinine Ratio 20.1 (6-22); Blood Urea Nitrogen 28 mg/dL (9-20); Calcium 8.7 mg/dL (8.4-10.2); Carbon Dioxide 33 mmol/L (22-32); Chloride 101 mmol/L (98-107); Estimated Glomerular Filt Rate 51 mL/min (>60); Globulin 3.2 g/dL (1.7-4.1); Glucose 114 mg/dL (70-99); HEMOLYSIS < 15 (0-50); Magnesium 1.9 mg/dL (1.6-2.3); Potassium 4.6 mmol/L (3.4-5.1); Sodium 141 mmol/L (137-145); Total Protein 7.1 g/dL (6.3-8.2)
== END ==
PROVIDERS: PCP Family Medicine; Referring Provider Specialist; Visit Provider Specialist
DX: R06.02 Shortness of breath (principal); I48.19 Other persistent atrial fibrillation; E78.2 Mixed hyperlipidemia; Z79.01 Long term (current) use of anticoagulants
CPT/HCPCS: 36415; 80053; 80061; 83704; 83735; 85027

== ENCOUNTER → 2025-01-26 11:56 | Outpatient (CLI) | payer MEDICARE, MEDICAID, SELFPAY ==
[2024-09-14 22:45] VITALS: BMI 32.3
[2025-01-26 12:16] LABS: Add Manual Diff / Slide Review NO; Basophils Absolute Auto 0 /uL (0-100); Basophils Percent Auto 0.7 % (0-2); Eosinophils Absolute Auto 300 /uL (0-450); Eosinophils Percent Auto 4.4 % (2-4); Hematocrit 39.6 % (41-53); Hemoglobin 13.3 g/dL (13.5-17.5); Lymphocytes Absolute Auto 1500 /uL (1100-4500); Lymphocytes Percent Auto 23.6 % (25-40); Mean Corpuscular HGB Conc 33.6 % (30-36); Mean Corpuscular Hemoglobin 32.1 PG (26-34); Mean Corpuscular Volume 95.5 fL (80-100); Monocytes Absolute Auto 800 /uL (0-900); Neutrophils Absolute Auto 3600 /uL (1500-7000); Neutrophils Percent Auto 58.3 % (50-75); Platelet Count 122 X10^3/uL (150-400); Red Blood Cell Count 4.14 X10^6/uL (4.5-5.9); Red Cell Distribution Width 15.4 % (11.6-14.8); White Blood Cell Count 6.2 X10^3/uL (4.5-11.0)
[2025-01-26 12:26] LABS: Prothrombin Time 22.6 SECONDS (9.4-12.5)
[2025-01-26 12:36] LABS: Albumin 3.8 g/dL (3.5-5.0); Albumin Globulin Ratio 1.3 (1.0-2.8); BUN Creatinine Ratio 24.6 (6-22); Blood Urea Nitrogen 34 mg/dL (9-20); Calcium 8.4 mg/dL (8.4-10.2); Carbon Dioxide 30 mmol/L (22-32); Chloride 105 mmol/L (98-107); Estimated Glomerular Filt Rate 51 mL/min (>60); Globulin 2.9 g/dL (1.7-4.1); Glucose 105 mg/dL (70-99); HEMOLYSIS < 15 (0-50); Potassium 4.6 mmol/L (3.4-5.1); Sodium 141 mmol/L (137-145); Total Protein 6.7 g/dL (6.3-8.2)
[2025-01-26 12:37] LABS: Alanine Aminotransferase 52 IU/L (<50); Alkaline Phosphatase 88 U/L (38-126); Aspartate Aminotransferase 39 IU/L (17-59); Bilirubin Total 0.6 mg/dL (0.2-1.3)
== END ==
PROVIDERS: PCP Family Medicine; Referring Provider Family Medicine; Visit Provider Family Medicine
DX: I10 Essential (primary) hypertension (principal); I48.91 Unspecified atrial fibrillation
CPT/HCPCS: 36415; 80053; 85025; 85610

== ENCOUNTER → 2025-03-29 19:14 | Outpatient (CLI) | payer MEDICARE, MEDICAID, SELFPAY ==
[2024-09-14 22:45] VITALS: BMI 32.3
--- NOTE | 2025-03-29 19:16 | DI.MRI.S_ITS ---
PROCEDURE: MR HEAD/BRAIN WO CON INDICATIONS: Dizziness TECHNIQUE: Non-contrast axial T1 spin echo, axial T2 fast spin echo, sagittal and axial FLAIR, coronal T2 fast spin echo, axial gradient echo, axial diffusion and ADC through the brain. COMPARISON: None. FINDINGS: Image quality: Excellent. CSF spaces: Ventricles appear symmetric in size and shape. Basal cisterns are patent. No extra-axial fluid collections. Brain: No intracranial bleeds or mass effects. There is cerebral volume loss for age. There are periventricular and deep white matter chronic small vessel ischemic changes. Brainstem appears normal. Diffusion-weighted images show no acute infarct. No chronic ischemic insults. Normal intravascular flow voids are present. Skull and face: Calvarial bone marrow is normal in signal. Orbits are normal. Sinuses: Mild mucosal thickening throughout the paranasal sinuses. The mastoid air cells are clear.. IMPRESSION: Mild age-appropriate cerebral atrophy with mild chronic microvascular ischemic changes. Dictated by: Liane Cheng M.D. on 03/30/2025 at 9:20 Approved by: Liane Cheng M.D. on 03/30/2025 at 9:21
== END ==
PROVIDERS: PCP Family Medicine; Referring Provider Family Medicine; Visit Provider Family Medicine
DX: R42 Dizziness and giddiness (principal)
CPT/HCPCS: 70551

== ENCOUNTER → 2025-04-17 14:36 | Outpatient (CLI) | payer MEDICARE, MEDICAID, SELFPAY ==
[2024-09-14 22:45] VITALS: BMI 32.3
[2025-04-17 16:41] LABS: INR 1.9 (0.9-1.3); Prothrombin Time 20.9 SECONDS (9.4-12.5)
[2025-04-17 16:51] LABS: Alanine Aminotransferase 28 IU/L (<50); Albumin 3.8 g/dL (3.5-5.0); Albumin Globulin Ratio 1.2 (1.0-2.8); Alkaline Phosphatase 74 U/L (38-126); Blood Urea Nitrogen 26 mg/dL (9-20); Calcium 8.5 mg/dL (8.4-10.2); Carbon Dioxide 26 mmol/L (22-32); Chloride 104 mmol/L (98-107); Estimated Glomerular Filt Rate 42 mL/min (>60); Globulin 3.2 g/dL (1.7-4.1); Glucose 95 mg/dL (70-99); HEMOLYSIS < 15 (0-50); Magnesium 2.3 mg/dL (1.6-2.3); Potassium 5.0 mmol/L (3.4-5.1); Sodium 140 mmol/L (137-145); Total Protein 7.0 g/dL (6.3-8.2)
== END ==
PROVIDERS: PCP Family Medicine; Referring Provider Family Medicine; Visit Provider Specialist
DX: I48.91 Unspecified atrial fibrillation (principal); I10 Essential (primary) hypertension
CPT/HCPCS: 36415; 80053; 83735; 85610

== ENCOUNTER 2025-06-27 18:07 | Emergency (ER) | payer OTHER, MEDICAID, SELFPAY ==
[2024-09-14 22:45] VITALS: BMI 32.3
[2025-06-27] VITALS (14 sets, daily range): BP systolic 135–173; BP diastolic 72–122; PULSE 57–72; RESP 16–21; TEMP 37.1; O2SAT 92–99; BMI 34.2
--- NOTE | 2025-06-27 18:17 | DI.CT.S_ITS ---
PROCEDURE: CT HEAD/BRAIN WO CON INDICATIONS: fall TECHNIQUE: Noncontrast 4.5 mm thick angled axial sections acquired from the foramen magnum to the vertex, with coronal and sagittal reformats. For radiation dose reduction, the following was used: automated exposure control, adjustment of mA and/or kV according to patient size. COMPARISON: [facility], CT, CT HEAD/BRAIN WO CON, 05/03/2025, 12:07. FINDINGS: Image quality: Diagnostic CSF spaces: Basal cisterns are patent. Lateral ventricles are symmetric. Volume: Vascular calcifications. Periventricular white matter disease is commonly seen with chronic microangiopathy. Volume loss is present. These findings are [id number] Brain: No acute intracranial hemorrhage. No significant loss of chawla-white differentiation. Craniofacial structures: No significant paranasal sinus opacity. IMPRESSION: No acute intracranial abnormality. Dictated by: Eulogio Bourgeois M.D. on 06/27/2025 at 18:54 Approved by: Eulogio Bourgeois M.D. on 06/27/2025 at 18:55
--- NOTE | 2025-06-27 18:18 | DI.CT.S_ITS ---
PROCEDURE: CT CERVICAL SPINE WO CON INDICATIONS: fall TECHNIQUE: Noncontrast 3 mm thick sections acquired from the skull base to the T4 level. Sagittal and coronal reformats were then constructed. For radiation dose reduction, the following was used: automated exposure control, adjustment of mA and/or kV according to patient size. COMPARISON: [facility], CT, CT CERVICAL SPINE WO CON, 05/03/2025, 12:07. FINDINGS: Image quality: Diagnostic Bones: Moderate to severe cervical spondylosis again seen. No acute displaced fracture or traumatic subluxation identified. Soft tissues: Prevertebral soft tissue thickening again seen, likely chronic. Right neck suspected lipoma also again partially seen and evaluated. No pneumothorax at the lung apices. IMPRESSION: Moderate to severe spondylosis. No acute displaced fracture or traumatic subluxation. If there is high concern for further derangement, consider MRI evaluation. Dictated by: Eulogio Bourgeois M.D. on 06/27/2025 at 18:56 Approved by: Eulogio Bourgeois M.D. on 06/27/2025 at 18:57
--- NOTE | 2025-06-27 18:41 | ED.GENADULT ---
HPI - General Adult General Chief complaint: Trauma Stated complaint: Fell out of bed, Head wound, on thinners Time Seen by Provider: 06/27/25 18:36 Source: patient and family Mode of arrival: Family Vehicle History of Present Illness HPI narrative: 84-year-old male with chart history atrial fibrillation on chronic warfarin anticoagulation, prior to admission had mechanical fall tripping over item on the floor, fell from floor level, struck head, left eyebrow area laceration that is bleeding, controlled with direct pressure. No loss of consciousness, nausea, vomiting, focal weakness or numbness. No other injuries. Related Data Home Medications ?Medication ?Instructions ?Recorded ?Confirmed albuterol sulfate 90 mcg/actuation 2 puff inhalation Q4-6H PRN 07/15/21 05/22/25 aerosol inhaler Shortness Of Breath atorvastatin 40 mg tablet 40 mg PO DAILY 07/27/23 05/22/25 baclofen 10 mg tablet 10 mg PO BID PRN Muscle Spasm 01/26/25 05/22/25 bupropion HCl 300 mg 24 hr tablet, 300 mg PO QAM 01/26/25 05/22/25 extended release warfarin 2 mg tablet See Rx Instructions PO DIRECTED 01/31/25 05/22/25 walker 02/27/25 05/22/25 gabapentin 300 mg tablet 300 mg PO BID 05/22/25 05/22/25 tamsulosin 0.4 mg capsule 0.4 mg PO DAILY 05/22/25 05/22/25 Previous Rx's ?Medication ?Instructions ?Recorded lisinopril 40 mg tablet 40 mg PO DAILY #30 tabs 01/26/25 metoprolol succinate 25 mg 25 mg PO DAILY #30 tabs 01/26/25 tablet,extended release 24 hr Disabled Parking #1 ea 02/27/25 fluticasone fur. 200 mcg-umeclid 1 inh inhalation DAILY #60 ea 04/05/25 62.5 mcg-vilant 25 mcg inhalat.powder (Trelegy Ellipta) furosemide 20 mg tablet (Lasix) 10 mg (1/2 x 20 mg) PO DAILY #30 05/22/25 tabs montelukast 10 mg tablet 10 mg PO DAILY #90 tabs 06/27/25 Allergies Allergy/AdvReac Type Severity Reaction Status Date / Time No Known Drug Allergies Allergy Verified 06/27/25 18:20 Patient History Medical History History of tobacco use Centrilobular emphysema Osteoarthritis Pedal edema CHF (congestive heart failure) PVC's (premature ventricular contractions) RBBB (right bundle branch block) Current every day smoker CAD (coronary artery disease) HLD (hyperlipidemia) HTN (hypertension) MICHAELA on CPAP COPD (chronic obstructive pulmonary disease) Afib Surgical History History of total left hip replacement Hx of repair of left rotator cuff History of total left knee replacement History of total right knee replacement Status post repair of nerve Hx of bilateral cataract extraction History of carpal tunnel surgery of left wrist History of arthroscopy of right shoulder Hx of hernia repair Social History household members: family alcohol intake: former tobacco type: cigarettes Exam Narrative Exam Narrative: GENERAL: Well-developed patient, in mild distress. HEAD: Atraumatic. Normocephalic. EYES: Pupils equal round. Extraocular motions intact. No scleral icterus. No injection or drainage. ENT: Nose without bleeding, purulent drainage. Throat without erythema, tonsillar hypertrophy or exudate. Airway patent. Left lateral eyebrow area periorbit laceration or generally horizontal about 2.0 cm in length. No obvious foreign body. No crepitance. NECK: Trachea midline. Non tender CARDIOVASCULAR: Regular rate and rhythm without murmurs, gallops, or rubs. RESPIRATORY: Clear to auscultation. Breath sounds equal bilaterally. No wheezes, rales, or rhonchi. GASTROINTESTINAL: Abdomen soft, non-tender, nondistended. EXTREMITIES: No edema or joint tenderness. BACK: Nontender without deformity or crepitance. No flank tenderness. NEURO: AOx3. Motor functions grossly nonfocal. SKIN: No rash or erythema of visible areas Initial Vital Signs Initial Vital Signs: Vital Signs Temperature 98.8 F 06/27/25 18:10 Pulse Rate 72 06/27/25 18:10 Respiratory Rate 18 06/27/25 18:10 Blood Pressure 158/72 H 06/27/25 18:10 Pulse Oximetry 97 06/27/25 18:10 Oxygen Delivery Method Room Air 06/27/25 18:10 Procedures Laceration Repair Laceration 1: Time of procedure: 22:52 Site: face (right eyebrow forehead horizontal) Size (cm): 2.0 Description: linear Depth: simple, single layer Local Anesthetic: lidocaine 1% and with epi Amount of anesthesia used (mL): 5 Pre-repair: wound explored Skin layer closed with: nylon Skin layer suture size: 4-0 Number of sutures: 4 Technique: simple, interrupted Course Orders Ordered: Discontinued Medications Diphtheria/Tetanus/Acell Pertussis (Tet,Diph,Pertuss(Acell),Vac/Pf 0.5 Ml Syringe) 0.5 ml IM .ONCE ONE Stop: 06/27/25 22:32 Last Admin: 06/27/25 22:39 Dose: 0.5 ml Documented By: AB Lidocaine/Epinephrine (Lidocaine 1% W/Epi 10ml) 4 ml INJ INTRA-OP ONE Stop: 06/27/25 21:02 Last Admin: 06/27/25 21:18 Dose: 4 ml Documented By: SB Vital Signs Vital signs: Vital Signs - 8 hr 06/27/25 22:30 06/27/25 22:30 Pulse Rate 72 Blood Pressure 155/103 H Pulse Oximetry 97 Oxygen Delivery Method Room Air Medical Decision Making Imaging Data CT scan - head: Radiologist's Impression: [place] [address] CT Scan Report Signed Patient: John Damico Jr MR#: [id number] : 1940 Acct:[id number] Age/Sex: 84 / M Date of Service: 06/27/25 Loc: ED Accession Number: [id number] Procedure: CT head/brain wo con Ordering Provider: Yimi Suarez MD PROCEDURE: CT HEAD/BRAIN WO CON INDICATIONS: fall TECHNIQUE: Noncontrast 4.5 mm thick angled axial sections acquired from the foramen magnum to the vertex, with coronal and sagittal reformats. For radiation dose reduction, the following was used: automated exposure control, adjustment of mA and/or kV according to patient size. COMPARISON: [facility], CT, CT HEAD/BRAIN WO CON, 05/03/2025, 12:07. FINDINGS: Image quality: Diagnostic CSF spaces: Basal cisterns are patent. Lateral ventricles are symmetric. Volume: Vascular calcifications. Periventricular white matter disease is commonly seen with chronic microangiopathy. Volume loss is present. These findings are [id number] Brain: No acute intracranial hemorrhage. No significant loss of chawla-white differentiation. Craniofacial structures: No significant paranasal sinus opacity. IMPRESSION: No acute intracranial abnormality. Dictated by: Eulogio Bourgeois M.D. on 06/27/2025 at 18:54 Approved by: Eulogio Bourgeois M.D. on 06/27/2025 at 18:55 CT Face noncontrast: Radiologist's Impression: [address] [address] [address] Scan Report Signed Patient: John Damico Jr MR#: [id number] : 1940 Acct:[id number] Age/Sex: 84 / M Date of Service: 06/27/25 Loc: ED Accession Number: [id number] Procedure: CT facial bones wo con Ordering Provider: Yimi Suarez MD PROCEDURE: CT FACIAL BONES WO CON INDICATIONS: left facial injuries, GLF TECHNIQUE: Noncontrast 2.5 mm thick axial images acquired from the mandible through the frontal sinuses, with coronal and sagittal reformatting. For radiation dose reduction, the following was used: automated exposure control, adjustment of mA and/or kV according to patient size. COMPARISON: None. FINDINGS: Image quality: Excellent. Bones and teeth: Orbital montano are intact. Sinus montano show no fracture or deformity. Nasal bones and septum are intact. Visualized portions of the mandible demonstrate no fractures or subluxation. Zygomatic arches are intact. Pterygoid plates are intact. Visualized portions of the skull base and auditory canals are intact. Degenerative changes of the visualized cervical spine. Sinuses: Paranasal sinuses are aerated, without fluid levels, mucosal thickening, or mucoceles. Mastoid air cells are aerated. Soft tissues: No edema, masses, or fluid collections. No enlarged lymph nodes. No soft tissue lacerations or debris. Vascular: Visualized vascular structures appear normal in the absence of contrast. Bony vascular foramina and canals are intact. IMPRESSION: No displaced fracture or traumatic malalignment. Dictated by: Miriam Alcala M.D. on 06/27/2025 at 19:57 Approved by: Miriam Alcala M.D. on 06/27/2025 at 20:01 CT - cervical spine: Radiologist's Impression: [address] [address] [address] Scan Report Signed Patient: John Damico Jr MR#: [id number] : 1940 Acct:[id number] Age/Sex: 84 / M Date of Service: 06/27/25 Loc: ED Accession Number: [id number] Procedure: CT cervical spine wo con Ordering Provider: Yimi Suarez MD PROCEDURE: CT CERVICAL SPINE WO CON INDICATIONS: fall TECHNIQUE: Noncontrast 3 mm thick sections acquired from the skull base to the T4 level. Sagittal and coronal reformats were then constructed. For radiation dose reduction, the following was used: automated exposure control, adjustment of mA and/or kV according to patient size. COMPARISON: [facility], CT, CT CERVICAL SPINE WO CON, 05/03/2025, 12:07. FINDINGS: Image quality: Diagnostic Bones: Moderate to severe cervical spondylosis again seen. No acute displaced fracture or traumatic subluxation identified. Soft tissues: Prevertebral soft tissue thickening again seen, likely chronic. Right neck suspected lipoma also again partially seen and evaluated. No pneumothorax at the lung apices. IMPRESSION: Moderate to severe spondylosis. No acute displaced fracture or traumatic subluxation. If there is high concern for further derangement, consider MRI evaluation. Dictated by: Eulogio Bourgeois M.D. on 06/27/2025 at 18:56 Approved by: Eulogio Bourgeois M.D. on 06/27/2025 at 18:57 [facility] Narrative Medical decision making narrative: 84-year-old male with history of chronic warfarin anticoagulation, had ground level fall mechanical tripping mechanism, with left eyebrow superior orbit area laceration. No loss of consciousness. No nausea or vomiting. No focal neuro changes. CT head, face, cervical spine ordered from triage. CBC INR labs ordered, patient refused. CT head noncontrast, no acute changes. See radiology report. CT face noncontrast, no acute changes. See radiology report. CT cervical spine shows arthritic changes, no bony fracture or dislocation subluxation changes. See radiology report. Wound closure left eyebrow laceration with sutures, see procedure note. Patient did not want to have blood draw to check INR on warfarin. Continue chronic regular medications for now. Wound check advised in clinic in the next couple of days with regular PCP, likely suture removal 5 days. Return precautions discussed. Discharged home with family. Discharge Plan Departure Patient Disposition: Home Clinical Impression: Fall from ground level, Laceration of left eyebrow, Chronic anticoagulation Activity Restrictions/Additional Instructions: Chronic warfarin anticoagulation. Fall from ground level after tripping mechanical episode. Laceration and injury to the left eyebrow area. No loss of consciousness. No nausea or vomiting. Increased risk of intracranial bleeding due to head trauma because of your chronic anticoagulation. CT head was performed and negative for intracranial injury. CT face showed no orbital fractures or other acute injury patterns of the bones. CT cervical spine showed arthritic changes but no neck injuries that seemed obvious. Laceration to left eyebrow region required suturing. Consider wound check with your regular doctor in the next couple of days. Facial sutures often times taken out at about 5 days, which can be done in your regular primary care provider clinic. Continue taking your chronic medication as prescribed. Return to this/nearest emergency department for any change worsening symptoms or any concerns prior. Tetanus update was also given, Tdap intramuscular injection. Prescriptions: No Action bupropion HCl 300 mg tablet extended release 24 hr 300 mg PO QAM metoprolol succinate 25 mg tablet extended release 24 hr 25 mg PO DAILY Qty: 30 3RF lisinopril 40 mg tablet 40 mg PO DAILY Qty: 30 3RF Rx Instructions: STOP lisinopril/HCTZ combination pill (DME) Disabled Parking See Rx Instructions .ROUTE .MEDSUPPLY Qty: 1 0RF Rx Instructions: I find this patient to be medically disabled and qualified for DISABLED PARKING as indicated, and signed, on the ACCOMPANYING DISABLED PARKING APPLICATION for Individuals. (DME) [facility] See Rx Instructions .Route Rx Instructions: As directed furosemide [Lasix] 20 mg tablet 10 mg PO DAILY Qty: 30 3RF tamsulosin 0.4 mg capsule 0.4 mg PO DAILY gabapentin 300 mg tablet 300 mg PO BID warfarin 2 mg tablet See Rx Instructions PO DIRECTED Protocol: Dose Management Condition: Wednesday Dose/Route: 8 mg Instruction: 4 x 2 mg tablets Condition: Wednesday Dose/Route: 8 mg Instruction: 4 x 2 mg tablets Condition: Wednesday Dose/Route: 8 mg Instruction: 4 x 2 mg tablets Condition: Wednesday Dose/Route: 8 mg Instruction: 4 x 2 mg tablets Condition: Dose/Route: 6 mg Instruction: 3 x 2 mg tablets Condition: Wednesday Dose/Route: 8 mg Instruction: 4 x 2 mg tablets Condition: Wednesday Dose/Route: 8 mg Instruction: 4 x 2 mg tablets Protocol Text: Adjustment Start Date: 04/19/25 INR Value: 1.9 INR Date: 04/17/25 Recheck Date: 05/03/25 Rx Instructions: Take 3 tablets (6mg total) on . Take 4 tablets (8mg total) all other days; or as directed. montelukast 10 mg tablet 10 mg PO DAILY Qty: 90 0RF albuterol sulfate 90 mcg/actuation Hfa Aerosol Inhaler 2 puff INHALATION Q4-6H PRN (Reason: Shortness Of Breath) baclofen 10 mg tablet 10 mg PO BID PRN (Reason: Muscle Spasm) atorvastatin 40 mg tablet 40 mg PO DAILY Trelegy Ellipta 200-62.5-25 mcg blister with device 1 inh inhalation DAILY Qty: 60 6RF Referrals: Jessica Pal MD [Primary Care Provider, Family Practice] Stand Alone Forms: Patient Portal/API
--- NOTE | 2025-06-27 19:22 | DI.CT.S_ITS ---
PROCEDURE: CT FACIAL BONES WO CON INDICATIONS: left facial injuries, GLF TECHNIQUE: Noncontrast 2.5 mm thick axial images acquired from the mandible through the frontal sinuses, with coronal and sagittal reformatting. For radiation dose reduction, the following was used: automated exposure control, adjustment of mA and/or kV according to patient size. COMPARISON: None. FINDINGS: Image quality: Excellent. Bones and teeth: Orbital montano are intact. Sinus montano show no fracture or deformity. Nasal bones and septum are intact. Visualized portions of the mandible demonstrate no fractures or subluxation. Zygomatic arches are intact. Pterygoid plates are intact. Visualized portions of the skull base and auditory canals are intact. Degenerative changes of the visualized cervical spine. Sinuses: Paranasal sinuses are aerated, without fluid levels, mucosal thickening, or mucoceles. Mastoid air cells are aerated. Soft tissues: No edema, masses, or fluid collections. No enlarged lymph nodes. No soft tissue lacerations or debris. Vascular: Visualized vascular structures appear normal in the absence of contrast. Bony vascular foramina and canals are intact. IMPRESSION: No displaced fracture or traumatic malalignment. Dictated by: Miriam Alcala M.D. on 06/27/2025 at 19:57 Approved by: Miriam Alcala M.D. on 06/27/2025 at 20:01
[2025-06-27] MEDS: LIDOCAINE 1% W/EPI 10ML 4 ML INJ (21:18)
[2025-06-27] MEDS: TET,DIPH,PERTUSS(ACELL),VAC/PF 0.5 ML SYRINGE IM (22:39)
== END 2025-06-27 23:08 | disposition home or self-care (01) ==
PROVIDERS: Emergency Provider Emergency Medicine; PCP Family Medicine
DX: S01.112A Laceration without foreign body of left eyelid and periocular area, initial encounter (principal); W18.30XA Fall on same level, unspecified, initial encounter; Z79.01 Long term (current) use of anticoagulants; Z23 Encounter for immunization
CPT/HCPCS: 12011; 70450; 70486; 72125; 90471; 99284; 90715

== ENCOUNTER 2025-07-05 22:16 | Emergency (ER) | payer OTHER, MEDICAID, SELFPAY ==
[2024-09-14 22:45] VITALS: BMI 32.3
[2025-07-05 22:25] VITALS: O2SAT 94
[2025-07-05 22:26] VITALS: BP 208/89; PULSE 74; O2SAT 95
[2025-07-05 22:30] VITALS: PULSE 78; RESP 23; O2SAT 95
[2025-07-05 22:31] VITALS: BP 208/89; PULSE 75; RESP 20; TEMP 36.7; O2SAT 95; BMI 35.1
[2025-07-05 22:48] LABS: Add Manual Diff / Slide Review NO; Hematocrit 35.8 % (41-53); Hemoglobin 12.0 g/dL (13.5-17.5); Lymphocytes Absolute Auto 1000 /uL (1100-4500); Mean Corpuscular HGB Conc 33.6 % (30-36); Mean Corpuscular Hemoglobin 32.3 PG (26-34); Mean Corpuscular Volume 95.9 fL (80-100); Platelet Count 130 X10^3/uL (150-400)
--- NOTE | 2025-07-05 22:57 | EKG_ITS ---
[address] [address] Test Date: 2025-07-05 Pat Name: John Damico Jr Department: [facility] Room: Gender: Male Pheresis Specialist: MARLIN : 1940 Requested By: Order Number: [id number] Reading MD: Aidan Mckenzie MD Measurements Intervals [place] Rate: 72 P: HI: QRS: 51 QRSD: 142 T: 10 QT: 444 QTc: 486 Interpretive Statements Atrial fibrillation Right bundle branch block No Significant Change Electronically Signed On 07-15-2025 9:00:56 PST by Aidan Mckenzie MD
[2025-07-05 23:00] VITALS: PULSE 75; RESP 26
[2025-07-05 23:02] LABS: Alanine Aminotransferase 21 IU/L (<50); Albumin 4.1 g/dL (3.5-5.0); Albumin Globulin Ratio 1.2 (1.0-2.8); Alkaline Phosphatase 73 U/L (38-126); Blood Urea Nitrogen 21 mg/dL (9-20); Calcium 8.5 mg/dL (8.4-10.2); Carbon Dioxide 28 mmol/L (22-32); Chloride 107 mmol/L (98-107); Estimated Glomerular Filt Rate 57 mL/min (>60); Globulin 3.3 g/dL (1.7-4.1); Glucose 135 mg/dL (70-99); HEMOLYSIS 17 (0-50); Lipase 107 U/L (23-300); Potassium 4.6 mmol/L (3.4-5.1); Sodium 139 mmol/L (137-145); Total Protein 7.4 g/dL (6.3-8.2)
[2025-07-05 23:30] VITALS: PULSE 72; RESP 18
[2025-07-05 23:34] LABS: Ictotest Urine Negative (Negative)
[2025-07-05 23:37] LABS: Culture Indicated Urine Specimen Cultured
[2025-07-06] VITALS (9 sets, daily range): BP systolic 114–139; BP diastolic 62–78; PULSE 71–80; RESP 16–24; O2SAT 92–96
--- NOTE | 2025-07-06 00:22 | ED.ABDPAIN ---
HPI - Abdominal Pain General Chief Complaint: Abdominal Pain Stated Complaint: LUQ pain Time Seen by Provider: 07/05/25 22:21 Source: patient and EMS Mode of arrival: EMS History of Present Illness HPI narrative: 84 year old male with history of atrial fibrillation, hypertension, anticoagulated with warfarin, COPD presents with left-sided abdominal pain via ems from [facility] and was given some fentanyl on route that started earlier this evening and progressively getting worse. He denies any other symptoms, no hematuria no hematochezia. Related Data Home Medications ?Medication ?Instructions ?Recorded ?Confirmed albuterol sulfate 90 mcg/actuation 2 puff inhalation Q4-6H PRN 07/15/21 05/22/25 aerosol inhaler Shortness Of Breath atorvastatin 40 mg tablet 40 mg PO DAILY 07/27/23 05/22/25 baclofen 10 mg tablet 10 mg PO BID PRN Muscle Spasm 01/26/25 05/22/25 bupropion HCl 300 mg 24 hr tablet, 300 mg PO QAM 01/26/25 05/22/25 extended release warfarin 2 mg tablet See Rx Instructions PO DIRECTED 01/31/25 07/03/25 walker 02/27/25 05/22/25 gabapentin 300 mg tablet 300 mg PO BID 05/22/25 05/22/25 tamsulosin 0.4 mg capsule 0.4 mg PO DAILY 05/22/25 05/22/25 Previous Rx's ?Medication ?Instructions ?Recorded lisinopril 40 mg tablet 40 mg PO DAILY #30 tabs 01/26/25 metoprolol succinate 25 mg 25 mg PO DAILY #30 tabs 01/26/25 tablet,extended release 24 [address] Disabled [address]ing #1 ea 02/27/25 fluticasone fur. 200 mcg-umeclid 1 inh inhalation DAILY #60 ea 04/05/25 62.5 mcg-vilant 25 mcg inhalat.powder (Trelegy Ellipta) furosemide 20 mg tablet (Lasix) 10 mg (1/2 x 20 mg) PO DAILY #30 05/22/25 tabs montelukast 10 mg tablet 10 mg PO DAILY #90 tabs 06/27/25 simethicone 125 mg capsule 125 mg PO BID-QID PRN abdominal 07/06/25 distention #14 caps Allergies Allergy/AdvReac Type Severity Reaction Status Date / Time No Known Drug Allergies Allergy Verified 07/05/25 22:31 Review of Systems Review of Systems ROS Unobtainable: All systems reviewed & are unremarkable except as noted in HPI and below Patient History Medical History History of tobacco use Centrilobular emphysema Osteoarthritis Pedal edema CHF (congestive heart failure) PVC's (premature ventricular contractions) RBBB (right bundle branch block) Current every day smoker CAD (coronary artery disease) HLD (hyperlipidemia) HTN (hypertension) MICHAELA on CPAP COPD (chronic obstructive pulmonary disease) Afib Surgical History History of total left hip replacement Hx of repair of left rotator cuff History of total left knee replacement History of total right knee replacement Status post repair of nerve Hx of bilateral cataract extraction History of carpal tunnel surgery of left wrist History of arthroscopy of right shoulder Hx of hernia repair Social History household members: family Smoking Status: Former smoker alcohol intake: former Smoking Status: Former smoker tobacco type: cigarettes Exam Narrative Exam Narrative: General: Patient appears to be in no acute distress, acting appropriately Head: normocephalic, atraumatic, HEENT: Pupils equal round reactive, eyes tracking well, neck supple, no JVD Heart: regular rate and rhythm, no murmurs, rubs, or gallops heard Lungs: clear to auscultation, no adventitious sounds Abdomen: soft , nontender, nondistended, positive bowel sounds Neurological: no focal neurological signs, moving all extremities well, alert and oriented x3, Psych: good judgment ,good insight, mood is normal. Initial Vital Signs Initial Vital Signs: Vital Signs Pulse Oximetry 94 07/05/25 22:25 Course Orders Ordered: ED Orders 07/05/25 22:30 Complete Blood Count AUTO DIFF Stat Comprehensive Metabolic Panel Stat Lipase Stat 07/05/25 22:39 EKG-12 Lead Stat 07/05/25 22:58 Ictotest Urine Stat Urine Culture Stat Urine Microscopic Stat 07/06/25 00:24 CT abdomen pelvis w con Stat Discontinued Medications Hydromorphone HCl (Hydromorphone Hcl 0.5 Mg/0.5 Ml Syringe) 0.5 mg IV NOW ONE Stop: 07/06/25 01:52 Last Admin: 07/06/25 02:17 Dose: 0.5 mg Documented By: INDIA Morphine Sulfate (Morphine 4 Mg/Ml Inj) 4 mg IV NOW ONE Stop: 07/06/25 00:24 Last Admin: 07/06/25 00:28 Dose: 4 mg Documented By: INDIA Ondansetron HCl (Ondansetron 4 Mg/2 Ml Inj) 4 mg IV NOW PRN PRN Reason: Nausea And Vomiting Last Admin: 07/06/25 00:28 Dose: 4 mg Documented By: INDIA Ondansetron HCl (Ondansetron 4 Mg Odt) 4 mg PO NOW PRN PRN Reason: Nausea And Vomiting Vital Signs Vital signs: Vital Signs - 8 hr 07/05/25 22:25 07/05/25 22:26 07/05/25 22:26 Temperature Pulse Rate 74 Respiratory Rate Blood Pressure 208/89 H Pulse Oximetry 94 95 Oxygen Delivery Method 07/05/25 22:30 07/05/25 22:31 07/05/25 23:00 Temperature 98.0 F Pulse Rate 78 75 75 Respiratory Rate 23 20 26 H Blood Pressure 208/89 H Pulse Oximetry 95 95 Oxygen Delivery Method Room Air Room Air 07/05/25 23:30 07/06/25 00:00 07/06/25 00:30 Temperature Pulse Rate 72 71 77 Respiratory Rate 18 19 Blood Pressure Pulse Oximetry 94 Oxygen Delivery Method 07/06/25 00:31 07/06/25 00:31 07/06/25 01:11 Temperature Pulse Rate 74 80 Respiratory Rate 24 Blood Pressure 139/76 Pulse Oximetry 96 95 Oxygen Delivery Method Room Air Room Air 07/06/25 01:11 07/06/25 01:30 07/06/25 01:31 Temperature Pulse Rate 73 74 Respiratory Rate Blood Pressure 114/76 Pulse Oximetry 93 94 Oxygen Delivery Method Room Air Room Air 07/06/25 01:31 07/06/25 02:00 07/06/25 02:13 Temperature Pulse Rate 78 72 Respiratory Rate 22 23 Blood Pressure 135/63 Pulse Oximetry 92 95 Oxygen Delivery Method Room Air Room Air 07/06/25 02:13 07/06/25 02:30 07/06/25 02:30 Temperature Pulse Rate 73 Respiratory Rate 16 Blood Pressure 129/78 136/62 Pulse Oximetry 92 Oxygen Delivery Method Room Air [facility] Abdominal Pain Lab Data 07/05/25 22:30 07/05/25 22:30 Labs: Lab Results 07/05/25 07/05/25 Range/Units 22:30 22:58 WBC 5.8 (4.5-11.0) X10^3/uL RBC 3.73 L (4.5-5.9) X10^6/uL Hgb 12.0 L (13.5-17.5) g/dL Hct 35.8 L (41-53) % MCV 95.9 (80-100) fL MCH 32.3 (26-34) PG MCHC 33.6 (30-36) % RDW 16.1 H (11.6-14.8) % Plt Count 130 L (150-400) X10^3/uL Neut % (Auto) 67.2 (50-75) % Lymph % (Auto) 16.7 L (25-40) % Simpson % (Auto) 11.2 (3-14) % Eos % (Auto) 3.7 (2-4) % Baso % (Auto) 1.2 (0-2) % Neut # (Auto) 3900 (1253-8965) /uL Lymph # (Auto) 1000 L (5876-9472) /uL Simpson # (Auto) 700 (0-900) /uL Eos # (Auto) 200 (0-450) /uL Baso # (Auto) 100 (0-100) /uL Sodium 139 (137-145) mmol/L Potassium 4.6 (3.4-5.1) mmol/L Chloride 107 (98-107) mmol/L Carbon Dioxide 28 (22-32) mmol/L BUN 21 H (9-20) mg/dL Creatinine 1.26 H (0.66-1.25) mg/dL Estimated GFR 57 L (>60) mL/min BUN/Creatinine Ratio 16.7 (6-22) Glucose 135 H (70-99) mg/dL Calcium 8.5 (8.4-10.2) mg/dL Total Bilirubin 1.0 (0.2-1.3) mg/dL AST 28 (17-59) IU/L ALT 21 (<50) IU/L Alkaline Phosphatase 73 (38-126) U/L Total Protein 7.4 (6.3-8.2) g/dL Albumin 4.1 (3.5-5.0) g/dL Globulin 3.3 (1.7-4.1) g/dL Albumin/Globulin Ratio 1.2 (1.0-2.8) Lipase 107 (23-300) U/L Ur Bilirubin Confirm Negative (Negative) Urine RBC None seen (0-5/HPF) Urine WBC 5-10/hpf H (0-5/HPF) Ur Squamous Epith Cells 0-1 /hpf (0-5/HPF) Urine Bacteria Moderate (10-30) H (None) Ur Culture Indicated? Specimen cultured Vol Urine Centrifuged 10ml (spun) Point of care testing: Urine Dip Bedside Urine Glucose Negative Bedside Urine Bilirubin + 1 Bedside Urine Ketone - Negative Urine Specific [place] 1.020 Bedside Urine Occult Blood - Negative Bedside Urine pH 6.0 Bedside Urine Protein +/- 15 Bedside Urine Urobilinogen 1+ 2mg Bedside Urine Nitrite - Negative Bedside Urine Leukocytes + [address] scan - abdomen/pelvis: Radiologist's Impression: No acute abnormality ECG Data Interpretation: Atrial fibrillation right bundle branch block, 72 beats per minute, previous EKG unchanged. MDM Narrative Medical decision making narrative: 84-year-old male with a history of atrial fibrillation, COPD, hypertension presents with left-sided abdominal pain that improved after some pain medications including morphine and Dilaudid. CT of the abdomen did not reveal any acute abnormality. Patient more likely dealing with some gaseous pain. We will do a trial of simethicone. Unclear of the exact etiology of this pain. Advised to follow up if pain resumes or worsens. Discharge Plan Departure Patient Disposition: Home Clinical Impression: Left sided abdominal pain Instructions: DI for Abdominal Pain-Adult Activity Restrictions/Additional Instructions: Try simethicone as prescribed. Follow up sooner if abdominal pain worsening. Follow up PCP within a week. Prescriptions: New simethicone 125 mg capsule 125 mg PO BID-QID PRN (Reason: abdominal distention) Qty: 14 0RF No Action bupropion HCl 300 mg tablet extended release 24 hr 300 mg PO QAM metoprolol succinate 25 mg tablet extended release 24 hr 25 mg PO DAILY Qty: 30 3RF lisinopril 40 mg tablet 40 mg PO DAILY Qty: 30 3RF Rx Instructions: STOP lisinopril/HCTZ combination pill (DME) Disabled Parking See Rx Instructions .ROUTE .MEDSUPPLY Qty: 1 0RF Rx Instructions: I find this patient to be medically disabled and qualified for DISABLED PARKING as indicated, and signed, on the ACCOMPANYING DISABLED PARKING APPLICATION for Individuals. (DME) [facility] See Rx Instructions .Route Rx Instructions: As directed furosemide [Lasix] 20 mg tablet 10 mg PO DAILY Qty: 30 3RF tamsulosin 0.4 mg capsule 0.4 mg PO DAILY gabapentin 300 mg tablet 300 mg PO BID warfarin 2 mg tablet See Rx Instructions PO DIRECTED Protocol: Dose Management Condition: Wednesday (Week One) Dose/Route: 8 mg Instruction: 4 x 2 mg tablets Condition: Wednesday Dose/Route: 8 mg Instruction: 4 x 2 mg tablets Condition: Wednesday Dose/Route: 2 mg Instruction: 1 x 2 mg tablet Condition: Wednesday Dose/Route: 8 mg Instruction: 4 x 2 mg tablets Condition: Dose/Route: 6 mg Instruction: 3 x 2 mg tablets Condition: Wednesday Dose/Route: 8 mg Instruction: 4 x 2 mg tablets Condition: Wednesday Dose/Route: 8 mg Instruction: 4 x 2 mg tablets Condition: Wednesday (Week Two) Dose/Route: 8 mg Instruction: 4 x 2 mg tablets Condition: Wednesday Dose/Route: 8 mg Instruction: 4 x 2 mg tablets Condition: Wednesday Dose/Route: 8 mg Instruction: 4 x 2 mg tablets Condition: Wednesday Dose/Route: 8 mg Instruction: 4 x 2 mg tablets Condition: Dose/Route: 6 mg Instruction: 3 x 2 mg tablets Condition: Wednesday Dose/Route: 8 mg Instruction: 4 x 2 mg tablets Condition: Wednesday Dose/Route: 8 mg Instruction: 4 x 2 mg tablets Protocol Text: Adjustment Start Date: Wednesday07/03/25 INR Value: 3.7 INR Date: 07/03/25 Recheck Date: 07/17/25 Rx Instructions: Take 3 tablets (6mg total) on . Take 4 tablets (8mg total) all other days; or as directed. montelukast 10 mg tablet 10 mg PO DAILY Qty: 90 0RF albuterol sulfate 90 mcg/actuation Hfa Aerosol Inhaler 2 puff INHALATION Q4-6H PRN (Reason: Shortness Of Breath) baclofen 10 mg tablet 10 mg PO BID PRN (Reason: Muscle Spasm) atorvastatin 40 mg tablet 40 mg PO DAILY Trelegy Ellipta 200-62.5-25 mcg blister with device 1 inh inhalation DAILY Qty: 60 6RF Referrals: Jessica Pal MD [Primary Care Provider, Family Practice] Stand Alone Forms: Patient Portal/API
--- NOTE | 2025-07-06 00:24 | DI.CT.S_ITS ---
PROCEDURE: CT ABDOMEN PELVIS W CON INDICATIONS: left sided abdominal pain TECHNIQUE: After the administration of intravenous contrast, axial sections acquired from the lung bases to the pubic symphysis. Coronal and sagittal reformats were performed. For radiation dose reduction, the following was used: automated exposure control, adjustment of mA and/or kV according to patient size. COMPARISON: [facility], CT, CT ABDOMEN PELVIS W CON, 09/14/2024, 19:55. FINDINGS: Image quality: Diagnostic. Lower Chest: No significant findings. ABDOMEN: Liver: Multiple hepatic cysts and additional lesions which are too small to characterize, unchanged. Gallbladder: No radiopaque gallstones or wall thickening. Biliary ducts: No biliary dilation. Pancreas: No ductal dilation. Spleen: Size is within normal limits. Adrenal Glands: No adrenal nodules. Kidneys and Ureters: No hydronephrosis. No solid mass. No complex renal cystic lesion which requires follow up. Nonobstructing 8 mm left renal calculus, unchanged. multiple simple cysts. Stomach and Bowel: Normal colonic caliber, without significant wall thickening. Peritoneum: No abnormal intraperitoneal fluid. No free air. Ventral Wall: Hernia repair with mesh Abdominal Nodes: No retroperitoneal or mesenteric adenopathy by size criteria. Vessels: Aorta and inferior vena cava are normal in size. PELVIS: Pelvic Organs: Unremarkable. Bladder: No bladder wall thickening, accounting for underdistention. Pelvic Nodes: No enlarged lymph nodes. Miscellaneous: No inguinal hernias are seen. Bones: No aggressive osseous abnormality. Bilateral total hip arthroplasty. Severe degenerative changes of the spine. IMPRESSION: No acute abnormality. Dictated by: Greg Blount M.D. on 07/06/2025 at 1:24 Approved by: Greg Blount M.D. on 07/06/2025 at 1:30
[2025-07-06] MEDS: MORPHINE 4 MG/ML INJ IV (00:28)
[2025-07-06] MEDS: ONDANSETRON 4 MG/2 ML INJ IV (00:28)
--- NOTE | 2025-07-06 00:37 | PC.NURSE ---
Pt awake and alert sitting in ED stretcher speaking with son and engages appropriately with RN upon entering exam room. Pt states acute onset LUQ abd pain without n/v/d, or constipation. Pt states increased pain with palpation, deep inspiration, stretching, or movement. Continued plan of care discussed and no further questions or concerns at this time. Pt reconnected to cardiac, resp, blood pressure, and pulse ox monitors with alarms on and audible. VS stable at this time. Call light within reach. Pt to imaging via ED stretcher with bench repair technician at this time.
== END 2025-07-06 02:52 | disposition home or self-care (01) ==
PROVIDERS: Emergency Provider Family Medicine; PCP Family Medicine
DX: R10.12 Left upper quadrant pain (principal)
CPT/HCPCS: 36415; 74177; 80053; 81003; 81015; 83690; 85025; 87077; 87086; 87186; 93005; 93010; 96374; 96375; 99284; J1171; J2272; J2405; Q9967

== ENCOUNTER 2025-07-17 10:24 | Emergency (ER) | payer OTHER, MEDICAID, SELFPAY ==
[2025-07-10 09:51] VITALS: BMI 32.3
[2025-07-17] VITALS (9 sets, daily range): BP systolic 100–137; BP diastolic 59–79; PULSE 61–74; RESP 18–24; TEMP 36.6; O2SAT 93–97; BMI 34.9
--- NOTE | 2025-07-17 10:30 | DI.RAD.S_ITS ---
PROCEDURE: XR CHEST 1V INDICATIONS: Chest Pain TECHNIQUE: One view of the chest was acquired. COMPARISON: [facility], CR, XR CHEST 1V, 12/07/2024, 20:09. FINDINGS: Surgical changes and devices: None. Lungs and pleura: There is mild pulmonary vascular congestion. No definite focal infiltrate. Linear scarring/atelectasis in bilateral mid to lower lung zone is seen. No pleural effusions or pneumothorax. Mediastinum: Mediastinal contours appear normal. Heart size is normal. Bones and chest wall: No suspicious bony lesions. Overlying soft tissues appear unremarkable. IMPRESSION: Mild congestion and linear scarring/atelectasis in bilateral lower lung field. No focal infiltrate, pleural effusion or pneumothorax. Dictated by: Leo Miranda M.D. on 07/17/2025 at 10:55 Approved by: Leo Miranda M.D. on 07/17/2025 at 10:56
--- NOTE | 2025-07-17 10:30 | EKG_ITS ---
[address] [address] Test Date: 2025-07-17 Pat Name: John Damico Jr Department: Room: Gender: Male Bundle Helper: : 1940 Requested By: Order Number: [id number] Reading MD: Aidan Mckenzie MD Measurements Intervals [place] Rate: 70 P: OR: QRS: 39 QRSD: 146 T: 11 QT: 444 QTc: 479 Interpretive Statements Atrial fibrillation with controlled ventricular response Right bundle branch block NO SIGNIFICANT CHANGE FROM PRIOR TRACING Electronically Signed On 07-17-2025 13:53:25 PST by Aidan Mckenzie MD
[2025-07-17 10:49] LABS: Add Manual Diff / Slide Review NO; Hematocrit 40.3 % (41-53); Hemoglobin 13.4 g/dL (13.5-17.5); Lymphocytes Absolute Auto 900 /uL (1100-4500); Mean Corpuscular HGB Conc 33.3 % (30-36); Mean Corpuscular Hemoglobin 32.3 PG (26-34); Mean Corpuscular Volume 97.2 fL (80-100); Platelet Count 124 X10^3/uL (150-400)
[2025-07-17 10:56] LABS: INR 1.7 (0.9-1.3); Prothrombin Time 19.1 SECONDS (9.4-12.5)
[2025-07-17 10:59] LABS: PTT Partial Thromboplastin Tim 41 SECONDS (25.1-36.5)
[2025-07-17 11:02] LABS: Alanine Aminotransferase 16 IU/L (<50); Albumin 4.2 g/dL (3.5-5.0); Albumin Globulin Ratio 1.2 (1.0-2.8); Alkaline Phosphatase 86 U/L (38-126); Blood Urea Nitrogen 18 mg/dL (9-20); Calcium 8.6 mg/dL (8.4-10.2); Carbon Dioxide 28 mmol/L (22-32); Chloride 106 mmol/L (98-107); Creatine Kinase 62 U/L (55-170); Estimated Glomerular Filt Rate 58 mL/min (>60); Globulin 3.6 g/dL (1.7-4.1); Glucose 114 mg/dL (70-99); HEMOLYSIS < 15 (0-50); Lipase 258 U/L (23-300); Magnesium 2.2 mg/dL (1.6-2.3); Potassium 4.2 mmol/L (3.4-5.1); Sodium 141 mmol/L (137-145); Total Protein 7.8 g/dL (6.3-8.2)
[2025-07-17 11:14] LABS: NT-proBNP (BNP-Adult 18+) 2270 pg/mL (<450); Troponin I < 0.012 ng/mL (0.01-0.034)
--- NOTE | 2025-07-17 16:53 | ED.CHESTPAIN ---
HPI - Chest Pain General Chief Complaint: Chest Pain Stated Complaint: left side pain under ribs 2 weeks Time Seen by Provider: 07/17/25 11:08 Source: patient Mode of arrival: Ambulatory History of Present Illness HPI narrative: 84-year-old male complaining of left chest wall pain and left upper quadrant abdominal pain. He relates it to a fall that he took over 2 weeks ago. He was seen in this department at that time and subsequently in late June, I reviewed both of those visits, he had a negative CT of the abdomen and pelvis on July 06. He reports it is painful to lay on that side. He reports it is painful to cough. He has chronic pain and takes gabapentin for this has been on it for quite some time. Was previously on opiates presently not taking opiates. He is not having urinary symptoms his bowels are working. He clearly relates the onset of this pain to his fall. Related Data Home Medications ?Medication ?Instructions ?Recorded ?Confirmed albuterol sulfate 90 mcg/actuation 2 puff inhalation Q4-6H PRN 07/15/21 07/10/25 aerosol inhaler Shortness Of Breath atorvastatin 40 mg tablet 40 mg PO DAILY 07/27/23 07/10/25 baclofen 10 mg tablet 10 mg PO BID PRN Muscle Spasm 01/26/25 07/10/25 bupropion HCl 300 mg 24 hr tablet, 300 mg PO QAM 01/26/25 07/10/25 extended release warfarin 2 mg tablet See Rx Instructions PO DIRECTED 01/31/25 07/17/25 walker 02/27/25 07/10/25 gabapentin 300 mg tablet 300 mg PO BID 05/22/25 07/10/25 tamsulosin 0.4 mg capsule 0.4 mg PO DAILY 05/22/25 07/10/25 Previous Rx's ?Medication ?Instructions ?Recorded lisinopril 40 mg tablet 40 mg PO DAILY #30 tabs 01/26/25 metoprolol succinate 25 mg 25 mg PO DAILY #30 tabs 01/26/25 tablet,extended release 24 hr Disabled Parking #1 ea 02/27/25 fluticasone fur. 200 mcg-umeclid 1 inh inhalation DAILY #60 ea 04/05/25 62.5 mcg-vilant 25 mcg inhalat.powder (Trelegy Ellipta) furosemide 20 mg tablet (Lasix) 10 mg (1/2 x 20 mg) PO DAILY #30 05/22/25 tabs montelukast 10 mg tablet 10 mg PO DAILY #90 tabs 06/27/25 simethicone 125 mg capsule 125 mg PO BID-QID PRN abdominal 07/06/25 distention #14 caps tramadol 50 mg tablet 50 mg PO BEDTIME #10 tabs 07/17/25 Allergies Allergy/AdvReac Type Severity Reaction Status Date / Time No Known Drug Allergies Allergy Verified 07/17/25 10:27 Patient History Medical History History of tobacco use Centrilobular emphysema Osteoarthritis Pedal edema CHF (congestive heart failure) PVC's (premature ventricular contractions) RBBB (right bundle branch block) Current every day smoker CAD (coronary artery disease) HLD (hyperlipidemia) HTN (hypertension) MICHAELA on CPAP COPD (chronic obstructive pulmonary disease) Afib Surgical History History of total left hip replacement Hx of repair of left rotator cuff History of total left knee replacement History of total right knee replacement Status post repair of nerve Hx of bilateral cataract extraction History of carpal tunnel surgery of left wrist History of arthroscopy of right shoulder Hx of hernia repair Social History household members: family alcohol intake: former Smoking Status: Unknown if ever smoked tobacco type: cigarettes Exam Narrative Exam Narrative: Appears to be in no distress fully oriented Head is atraumatic neck is supple and nontender Spine is nontender Has equal breath sounds No rash on the chest wall or upper abdomen. No crepitance of the chest wall. Does have tenderness to the left costal margin and left upper quadrant No focal neurologic deficits Initial Vital Signs Initial Vital Signs: Vital Signs Temperature 97.9 F 07/17/25 10:27 Pulse Rate 69 07/17/25 10:27 Respiratory Rate 18 07/17/25 10:27 Blood Pressure 137/79 07/17/25 10:27 Pulse Oximetry 96 07/17/25 10:27 Oxygen Delivery Method Room Air 07/17/25 10:27 Course Orders Ordered: ED Orders 07/17/25 10:30 XR chest 1V Stat EKG-12 Lead Stat 07/17/25 10:40 Complete Blood Count AUTO DIFF Stat Comprehensive Metabolic Panel Stat Lipase Stat Magnesium Stat NT-proBNP (BNP-Adult 18+) Stat PTT Partial Thromboplastin Jung Stat Prothrombin Time INR Stat Troponin & CK Cardiac Panel Stat Vital Signs Vital signs: Vital Signs - 8 hr 07/17/25 10:27 07/17/25 11:07 07/17/25 11:08 Temperature 97.9 F Pulse Rate 69 74 Respiratory Rate 18 Blood Pressure 137/79 100/59 L Pulse Oximetry 96 96 Oxygen Delivery Method Room Air 07/17/25 11:08 07/17/25 11:30 07/17/25 11:49 Temperature Pulse Rate 74 66 Respiratory Rate 22 24 Blood Pressure 115/72 Pulse Oximetry 93 93 Oxygen Delivery Method 07/17/25 11:49 07/17/25 12:00 07/17/25 12:01 Temperature Pulse Rate 70 66 Respiratory Rate 24 23 Blood Pressure 133/67 Pulse Oximetry 95 97 Oxygen Delivery Method 07/17/25 12:01 07/17/25 12:30 07/17/25 12:30 Temperature Pulse Rate 67 72 Respiratory Rate 22 Blood Pressure 123/74 Pulse Oximetry 95 97 Oxygen Delivery Method Room Air 07/17/25 13:00 07/17/25 13:00 Temperature Pulse Rate 61 Respiratory Rate 19 Blood Pressure 134/65 Pulse Oximetry 94 Oxygen Delivery Method MDM - Chest Pain Lab Data Lab results narrative: CBC and CMP are reassuring, normal troponin elevated proBNP but this is lower than his baseline. 07/17/25 10:40 07/17/25 10:40 Labs: Lab Results 07/17/25 Range/Units 10:40 WBC 5.4 (4.5-11.0) X10^3/uL RBC 4.15 L (4.5-5.9) X10^6/uL Hgb 13.4 L (13.5-17.5) g/dL Hct 40.3 L (41-53) % MCV 97.2 (80-100) fL MCH 32.3 (26-34) PG MCHC 33.3 (30-36) % RDW 16.2 H (11.6-14.8) % Plt Count 124 L (150-400) X10^3/uL Neut % (Auto) 69.1 (50-75) % Lymph % (Auto) 16.5 L (25-40) % Kingfisher % (Auto) 8.8 (3-14) % Eos % (Auto) 4.3 H (2-4) % Baso % (Auto) 1.3 (0-2) % Neut # (Auto) 3800 (7117-7324) /uL Lymph # (Auto) 900 L (2720-9820) /uL King[place]isher # (Auto) 500 (0-900) /uL Eos # (Auto) 200 (0-450) /uL Baso # (Auto) 100 (0-100) /uL PT 19.1 H (9.4-12.5) SECONDS INR 1.7 H (0.9-1.3) APTT 41 H (25.1-36.5) SECONDS Sodium 141 (137-145) mmol/L Potassium 4.2 (3.4-5.1) mmol/L Chloride 106 (98-107) mmol/L Carbon Dioxide 28 (22-32) mmol/L BUN 18 (9-20) mg/dL Creatinine 1.24 (0.66-1.25) mg/dL Estimated GFR 58 L (>60) mL/min BUN/Creatinine Ratio 14.5 (6-22) Glucose 114 H (70-99) mg/dL Calcium 8.6 (8.4-10.2) mg/dL Magnesium 2.2 (1.6-2.3) mg/dL Total Bilirubin 1.1 (0.2-1.3) mg/dL AST 26 (17-59) IU/L ALT 16 (<50) IU/L Alkaline Phosphatase 86 (38-126) U/L Total Creatine Kinase 62 (55-170) U/L Troponin I < 0.012 (0.01-0.034) ng/mL NT-Pro-B Natriuret Pep 2270 H (<450) pg/mL Total Protein 7.8 (6.3-8.2) g/dL Albumin 4.2 (3.5-5.0) g/dL Globulin 3.6 (1.7-4.1) g/dL Albumin/Globulin Ratio 1.2 (1.0-2.8) Lipase 258 (23-300) U/L Imaging Data Chest x-ray: My Impression: Independently reviewed chest x-ray, no acute findings ECG Data Attestation: I personally reviewed and interpreted this ECG as follows: (Regular narrow complex rhythm with PVC no acute ST segment changes) MDM Narrative Medical decision making narrative: 84-year-old male complaining of left-sided chest wall and upper abdominal pain. No pneumothorax no infiltrate, no abnormalities on previous CT of the abdomen obtained for the same symptoms. He is not hypoxic, presentation does not suggest pulmonary embolism and has a normal troponin with prolonged symptoms I do not think this is ischemic. I did provide a prescription for just a few tramadol that he can use to help sleep at night. Recommended [id number] analgesia also and primary care follow up Discharge Plan Departure Patient Disposition: Home Clinical Impression: Chest wall pain Activity Restrictions/Additional Instructions: Emergency department workup today is reassuring. I do not think that there was a dangerous cause for your chest wall pain today. I have sent a prescription for just a few tramadol that you can use at night to help sleep. Continue with gabapentin, continue using acetaminophen 650-1000 mg up to every 6 hours as needed, total daily dose should be no more than 3000 mg. Follow up sooner your primary care provider. If you are having fevers shortness of breath or other acute symptoms recheck in the emergency department Prescriptions: New tramadol 50 mg tablet 50 mg PO BEDTIME Qty: 10 0RF No Action bupropion HCl 300 mg tablet extended release 24 hr 300 mg PO QAM metoprolol succinate 25 mg tablet extended release 24 hr 25 mg PO DAILY Qty: 30 3RF lisinopril 40 mg tablet 40 mg PO DAILY Qty: 30 3RF Rx Instructions: STOP lisinopril/HCTZ combination pill (DME) Disabled Parking See Rx Instructions .ROUTE .MEDSULY Qty: 1 0RF Rx Instructions: I find this patient to be medically disabled and qualified for DISABLED PARKING as indicated, and signed, on the ACCOMPANYING DISABLED PARKING APPLICATION for Individuals. (DME) walk[place] [facility] [place] [facility] [place] Rx Instructions .Route Rx Instructions: As directed furosemide [Lasix] 20 mg tablet 10 mg PO DAILY Qty: 30 3RF tamsulosin 0.4 mg capsule 0.4 mg PO DAILY gabapentin 300 mg tablet 300 mg PO BID warfarin 2 mg tablet See Rx Instructions PO DIRECTED Protocol: Dose Management Condition: Wednesday Dose/Route: 8 mg Instruction: 4 x 2 mg tablets Condition: Wednesday Dose/Route: 8 mg Instruction: 4 x 2 mg tablets Condition: Wednesday Dose/Route: 10 mg Instruction: 5 x 2 mg tablets Condition: Wednesday Dose/Route: 8 mg Instruction: 4 x 2 mg tablets Condition: Dose/Route: 6 mg Instruction: 3 x 2 mg tablets Condition: Wednesday Dose/Route: 8 mg Instruction: 4 x 2 mg tablets Condition: Wednesday Dose/Route: 8 mg Instruction: 4 x 2 mg tablets Protocol Text: Adjustment Start Date: Wednesday07/17/25 INR Value: 1.7 INR Date: 07/17/25 Recheck Date: 07/31/25 Rx Instructions: Take 3 tablets (6mg total) on . Take 4 tablets (8mg total) all other days; or as directed. montelukast 10 mg tablet 10 mg PO DAILY Qty: 90 0RF albuterol sulfate 90 mcg/actuation Hfa Aerosol Inhaler 2 puff INHALATION Q4-6H PRN (Reason: Shortness Of Breath) baclofen 10 mg tablet 10 mg PO BID PRN (Reason: Muscle Spasm) simethicone 125 mg capsule 125 mg PO BID-QID PRN (Reason: abdominal distention) Qty: 14 0RF atorvastatin 40 mg tablet 40 mg PO DAILY Trelegy Ellipta 200-62.5-25 mcg blister with device 1 inh inhalation DAILY Qty: 60 6RF Referrals: Jessica Pal MD [Primary Care Provider, Family Practice] Stand Alone Forms: Patient Portal/API
== END 2025-07-17 13:02 | disposition home or self-care (01) ==
PROVIDERS: Emergency Provider Emergency Medicine; PCP Family Medicine
DX: R07.89 Other chest pain (principal); R10.12 Left upper quadrant pain
CPT/HCPCS: 36415; 71045; 80053; 82550; 83690; 83735; 83880; 84484; 85025; 85610; 85730; 93005; 99283; 99284

== ENCOUNTER → 2025-08-21 09:58 | Outpatient (CLI) | payer OTHER, MEDICAID, SELFPAY ==
[2025-07-10 09:51] VITALS: BMI 32.3
[2025-08-21 11:01] LABS: INR 1.8 (0.9-1.3); Prothrombin Time 19.6 SECONDS (9.4-12.5)
== END ==
PROVIDERS: PCP Family Medicine; Referring Provider Family Medicine; Visit Provider Family Medicine
DX: I48.91 Unspecified atrial fibrillation (principal); Z79.01 Long term (current) use of anticoagulants
CPT/HCPCS: 36415; 85610